=== PATIENT | female | born 1935 | race Caucasian/White ===

== ENCOUNTER 2017-08-15 12:46 | Inpatient (IN) | payer OTHER, MEDICARE ==
[~2017-08-15] VITALS: Ht 165.1 cm; Wt 44.9 kg
[~2017-08-15 12:46] MED LIST: AMARYL2 MG PO; AMARYL4 MG PO; AMOXICILLIN 50500 M1 PO; ANTIVERT25 MG PO; ASCRIPTIN 325325 MG PO; ASPIRIN325 PO; BENADRYL25 MG; BENADRYL25 MG PO; CELEXA 20 MG TA20 M1 PO; CHOLESTEROL; CIPROFLOXACIN500 M1; CLEOCIN HCL300 MG PO; GERITOL COMPLE1 EAC2; GERITOL COMPLE1 EAC2 PO; GERITOL TONIC118 ML; HCTZ PO; HYDROCHLOROTH12.5 M1; JANUMET XR 50-1 EAC1 PO; KLOR-CON 10 ER10 MEQ PO; KLOR-CON 1010 MEQ PO; KLOR-CON-EF 2525 ME1 PO; LEVAQUIN 500 M500 MG PO; LEVOTHROID50 MCG PO; LEVOTHYROXIN0.075 MG PO; LEVOXYL50 MCG PO; MECLIZINE 25 MG25 M1 PO; MECLIZINE HCL25 M1 PO; METFORMIN HCL500 MG PO; NEXIUM40 MG; NEXIUM40 MG PO; PRAVASTATIN SOD20 MG PO; PREMARIN0.625 MG PO; PROTONIX40 M2; SUGAR PILL; VITAMIN B-121000 MCG PO; VITAMIN D 5050000 I1 PO; VITAMIN D1000 UNI1 PO
[2017-08-15 12:48] VITALS: BP 165/97
[2017-08-15 13:22] LABS: ABSOLUTE NEUTROPHILS 12.9 thou/uL (1.4-8.2); BASOPHILS 0.6 % (0.0-2.0); EOSINOPHILS 0.7 % (0.0-3.0); HEMATOCRIT 38.4 % (37.0-47.0); HEMOGLOBIN 12.6 gm/dL (12.0-15.0); LYMPHOCYTES 6.9 % (24.0-44.0); MCH 28.3 pg (26.0-34.0); MCHC 32.8 g/dL (28.0-37.0); MCV 86.5 fL (80.0-100.0); MONOCYTES 7.6 % (1.0-8.0); PLATELET COUNT 313 thou/uL (150-400); POLYS 84.2 % (36.0-66.0); RBC 4.44 mil/uL (4.20-5.00); RDW 13.9 % (10.5-14.5); WBC 15.3 thou/uL (4.0-11.0)
[2017-08-15 13:30] LABS: CALCIUM 9.4 mg/dL (8.5-10.1); CREATININE 0.8 mg/dL (0.6-1.0); POTASSIUM 4.1 mmol/L (3.5-5.1)
[2017-08-15 13:41] LABS: URINE BILIRUBIN NEGATIVE (Negative); URINE BLOOD 3+ (Negative); URINE CLARITY CLEAR; URINE COLOR YELLOW; URINE GLUCOSE-RANDOM* 2+ (Negative); URINE KETONES 1+ (Negative); URINE LEUKOCYTES NEGATIVE (Negative); URINE NITRITE NEGATIVE (Negative); URINE PROTEIN (DIPSTICK) 1+ (Negative); URINE SPECIFIC GRAVITY 1.025 (1.005-1.035); URINE UROBILINOGEN 0.2 E.U./dl (0.2-1.0)
[2017-08-15 13:52] LABS: BACTERIA 1-9 Few /HPF (None Seen); CASTS None Seen /LPF (None Seen); CRYSTALS None Seen /LPF (None Seen); SQUAMOUS 4-10 Moderate /LPF (0-3); URINE WBC None Seen /HPF (0-5)
[2017-08-15 14:42] VITALS: BP 172/77
[2017-08-15 15:01] VITALS: BP 181/80
[2017-08-15 19:30] VITALS: BP 155/85
[2017-08-16 04:22] VITALS: BP 117/67
[2017-08-16 05:47] LABS: HEMOGLOBIN 11.7 gm/dL (12.0-15.0); MCH 27.8 pg (26.0-34.0); MCHC 31.6 g/dL (28.0-37.0); RBC 4.21 mil/uL (4.20-5.00); WBC 13.5 thou/uL (4.0-11.0)
[2017-08-16 06:00] LABS: ALBUMIN 2.9 g/dL (3.4-5.0); CREATININE 0.8 mg/dL (0.6-1.0); PHOSPHORUS 4.7 mg/dL (2.5-4.9); POTASSIUM 4.3 mmol/L (3.5-5.1)
[2017-08-16 08:31] VITALS: BP 134/76
[2017-08-16] MEDS ORDERED: HYDROCODONE-AP1 EAC6 PO (08:57)
[2017-08-16] MEDS ORDERED: CEFUROXIME500 MG PO (08:57)
[2017-08-16] MEDS ORDERED: PREDNISONE 20 M20 M1 PO (08:57)
[2017-08-16 12:33] VITALS: BP 134/76
[2017-12-06] MEDS ORDERED: GERITOL COMPLE1 EAC2 PO (10:06)
[2017-12-06] MEDS ORDERED: VITAMIN D250000 UNIT PO (10:06)
[2017-12-06] MEDS ORDERED: COD LIVER OIL1 EAC4 PO (10:07)
[2017-12-08] MEDS ORDERED: ASPIR 8181 MG PO (13:22)
[2017-12-08] MEDS ORDERED: CLOPIDOGREL75 MG PO (13:22)
[2017-12-08] MEDS ORDERED: ATORVASTATIN CA40 MG PO (13:22)
[2017-12-08] MEDS ORDERED: COZAAR 25 MG TA25 M1 PO (13:22)
[2018-03-03] MEDS ORDERED: BUSPIRONE HCL10 MG PO (19:05)
[2018-03-03] MEDS ORDERED: PROTONIX40 M1 PO (19:06)
[2018-03-03] MEDS ORDERED: COLCRYS0.6 MG PO (19:06)
[2018-03-06] MEDS ORDERED: OXYCODONE HCL 55 MG PO (09:11)
== END 2017-08-16 13:29 | disposition home or self-care (01) | DRG 871 ==
LOC: ER 12:46 → 4E 14:13 → EROBS 14:13 → 4E 15:02 → ENTRNSPT 08-16 13:07 → EDTRNSPTSTS 08-16 13:11 → 4E 08-16 13:29
PROVIDERS: Emergency Medicine; Hospitalist
DX: A41.9 Sepsis, unspecified organism (principal); E43 Unspecified severe protein-calorie malnutrition; N39.0 Urinary tract infection, site not specified; Z68.1 Body mass index [BMI] 19.9 or less, adult; M79.1 Myalgia; T50.905A Adverse effect of unspecified drugs, medicaments and biological substances, initial encounter; E11.65 Type 2 diabetes mellitus with hyperglycemia; M25.50 Pain in unspecified joint; Z90.710 Acquired absence of both cervix and uterus; Z86.12 Personal history of poliomyelitis; Z98.42 Cataract extraction status, left eye; Z98.41 Cataract extraction status, right eye; Z90.49 Acquired absence of other specified parts of digestive tract; Z79.899 Other long term (current) drug therapy; Z88.1 Allergy status to other antibiotic agents; Z88.2 Allergy status to sulfonamides; Z88.8 Allergy status to other drugs, medicaments and biological substances; Z88.0 Allergy status to penicillin; Z82.49 Family history of ischemic heart disease and other diseases of the circulatory system; Z83.3 Family history of diabetes mellitus; Z80.9 Family history of malignant neoplasm, unspecified; Z82.3 Family history of stroke; Y92.89 Other specified places as the place of occurrence of the external cause
CPT/HCPCS: 10183

== ENCOUNTER 2017-12-12 13:04 | Inpatient (IN) | payer OTHER, MEDICARE ==
[~2017-12-12] VITALS: Ht 162.6 cm; Wt 50.8 kg
--- NOTE | ~2017-12-12 | PATH ---
[facility] [address] [place] [address] PATHOLOGY RPT PROCEDURE Name: DORENE FOSTER Room #: 226-P ADM IN M.R.#: [id number] Admission: 12/12/17 Date of : 31 Discharge: Report #: [id number] Path Case #: [id number] Note LCA Accession Number: [id number] TESTS RESULT FLAG UNITS REF RANGE LAB Clinician Provided Cytology Information No. of containers..01 Other (Miscellaneous) Source: 01 RADIAL CARPAL LT WRT DIAGNOSIS: 02 RADIAL CARPAL LT WRT NEGATIVE FOR MALIGNANT CELLS. PROTEINACEOUS MATERIAL IS PRESENT. MARKED ACUTE INFLAMMATION. Signed out by: 02 Kina Gonzalez MD, Pathologist NPI- [id number] Performed by: Jeremiah Gustafson, Chain Builder ([facility]) Gross description: 01 0.5 ML, RED, CLEAR /LCS FLAG LEGEND: L-Low Normal,H-High Normal,LL-Alert Low,HH-Alert High <-Panic Low,>-Panic High,A-Abnormal,AA-Critical Abnormal Performed at: [address] [place] [address] Glenn Collins MD, [address] [address] Kina Gonzalez MD, Performed at: [address], [place], [place] [id number] MD Glenn Collins MD Phone: [phone]
--- NOTE | ~2017-12-12 | EKG ---
[address] [place] [address] ELECTROCARDIOGRAM REPORT Name: KRISTINDORENE Room #: 403-P ADM IN M.R.#: [id number] Admission: 12/12/17 Attend Phys: Varinder Stone MD Discharge: Date of : 33 Report #: [id number] THIS REPORT FOR: //name// [facility] ED Test Date: 2017-12-12 Test Time: 14:47:35 Pat Name: DORENE FOSTER Department: Room: Gender: F Pacs Specialist: CANDICE : 1935 Requested By: Guy Boateng Order Number: [id number] MD: Shawn Farias Measurements Intervals [place] Rate: 90 P: 56 [place]: 136 QRS: -27 QRSD: 85 T: 201 QT: 362 QTc: 443 Interpretive Statements Sinus rhythm LVH with secondary repolarization abnormality Compared to ECG 12/08/2017 07:23:40 Atrial premature complexes no longer present Electronically Signed On 12-13-2017 8:20:01 CDT by Shawn Farias [email or web address] <ELECTRONICALLY SIGNED> By: Shawn Farias MD, [facility] 12/13/17819 1447 1447 Shawn Farias MD, [facility] /EPI
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
--- NOTE | ~2017-12-12 | PATH ---
[facility] [address] [place] [address] PATHOLOGY RPT PROCEDURE Name: DORENE FOSTER Room #: 226-P ADM IN M.R.#: [id number] Admission: 12/12/17 Date of : 33 Discharge: Report #: [id number] Path Case #: [id number] Note LCA Accession Number: [id number] TESTS RESULT FLAG UNITS REF RANGE LAB Clinician Provided Cytology Information No. of containers..01 Other (Miscellaneous) Source: 01 LEFT ELBOW #3 DIAGNOSIS: 02 LEFT ELBOW #3 NEGATIVE FOR MALIGNANT CELLS. PROTEINACEOUS MATERIAL IS PRESENT. MARKED ACUTE INFLAMMATION PRESENT. Signed out by: Kina Gonzalez MD, Pathologist NPI- [id number] Performed by: Jeremiah Gustafson, Retail Experience Specialist ([facility]) Gross description: 01 5 ML, YELLOW-RED, CLOUDY /LCS FLAG LEGEND: L-Low Normal,H-High Normal,LL-Alert Low,HH-Alert High <-Panic Low,>-Panic High,A-Abnormal,AA-Critical Abnormal Performed at: [address] [place] [address] Glenn Collins MD, [address] [address] Kina Gonzalez MD, Performed at: [address], [place], [place] [address] MD Glenn Collins MD Phone: [phone]
--- NOTE | ~2017-12-12 | PATH ---
[facility] [address] [place] [address] PATHOLOGY RPT PROCEDURE Name: DORENE FOSTER Room #: 226-P ADM IN M.R.#: [id number] Admission: 12/12/17 Date of : 31 Discharge: Report #: [id number] Path Case #: [id number] Note LCA Accession Number: [id number] TESTS RESULT FLAG UNITS REF RANGE LAB Clinician Provided Cytology Information No. of containers..01 Other (Miscellaneous) Source: #2 MID CARPL LT WRST DIAGNOSIS: #2 MID CARPL LT WRST NEGATIVE FOR MALIGNANT CELLS. PROTEINACEOUS MATERIAL IS PRESENT. MARKED ACUTE INFLAMMATION. Signed out by: Kina Gonzalez MD, Pathologist NPI- [id number] Performed by: Jeremiah Gustafson, Dust Box Worker ([facility]) Gross description: 01 0.5 ML, RED, CLOUDY /LCS FLAG LEGEND: L-Low Normal,H-High Normal,LL-Alert Low,HH-Alert High <-Panic Low,>-Panic High,A-Abnormal,AA-Critical Abnormal Performed at: [address] [place] [address] Glenn Collins MD, [address] [address] Kina Gonzalez MD, Performed at: [address], [place], [place] [id number] MD Glenn Collins MD Phone: [phone]
[~2017-12-12 13:04] MED LIST changes: +ASPIR 8181 MG PO; +ATORVASTATIN CA40 MG PO; +CEFUROXIME500 MG PO; +CLOPIDOGREL75 MG PO; +COD LIVER OIL1 EAC4 PO; +COZAAR 25 MG TA25 M1 PO; +HYDROCODONE-AP1 EAC6 PO; +PREDNISONE 20 M20 M1 PO; +VITAMIN D250000 UNIT PO
[2017-12-12 13:05] VITALS: BP 149/75
[2017-12-12 14:17] LABS: HEMATOCRIT 34.7 % (37.0-47.0); HEMOGLOBIN 11.3 gm/dL (12.0-15.0); MCH 27.5 pg (26.0-34.0); MCHC 32.5 g/dL (28.0-37.0); MCV 84.9 fL (80.0-100.0); RBC 4.08 mil/uL (4.20-5.00); RDW 15.8 % (10.5-14.5); WBC 11.1 thou/uL (4.0-11.0)
[2017-12-12 14:25] LABS: CALCIUM 9.5 mg/dL (8.5-10.1); CREATININE 0.8 mg/dL (0.6-1.0); POTASSIUM 3.4 mmol/L (3.5-5.1)
[2017-12-12 14:33] LABS: ALBUMIN 2.8 g/dL (3.4-5.0); TOTAL BILIRUBIN 0.6 mg/dL (<0.1-1.0); TOTAL PROTEIN 7.3 g/dL (6.4-8.2); TROPONIN-I 0.55 ng/mL (<0.06); URIC ACID* 5.2 mg/dL (2.6-7.2)
[2017-12-12 16:00] VITALS: BP 152/61
[2017-12-12 16:02] LABS: URINE BILIRUBIN NEGATIVE (Negative); URINE BLOOD 1+ (Negative); URINE CLARITY SL CLOUDY; URINE COLOR YELLOW; URINE GLUCOSE-RANDOM* 3+ (Negative); URINE KETONES 1+ (Negative); URINE LEUKOCYTES-REFLEX NEGATIVE (Negative); URINE NITRITE-REFLEX POSITIVE (Negative); URINE PROTEIN (DIPSTICK) 2+ (Negative); URINE SPECIFIC GRAVITY 1.015 (1.005-1.035); URINE UROBILINOGEN 0.2 E.U./dl (0.2-1.0)
[2017-12-12 16:11] LABS: CASTS None Seen /LPF (None Seen); SQUAMOUS >10 Many /LPF (0-3); URINE RBC 3-10 Few /HPF (0-2); URINE WBC-REFLEX >25 Many /HPF (0-5)
[2017-12-12 16:12] LABS: AMORPHOUS URATES Many /LPF (None Seen); BACTERIA-REFLEX 1-9 Few /HPF (None Seen); YEAST-REFLEX Present (None Seen)
[2017-12-12 20:00] VITALS: BP 162/56
[2017-12-13 04:00] VITALS: BP 158/88
[2017-12-13 04:07] LABS: GLYCOHEMOGLOBIN (HGB A1C) 7.2 % (4.8-5.6)
[2017-12-13 07:15] VITALS: BP 180/83
[2017-12-13 15:20] VITALS: BP 173/62
[2017-12-13 20:25] VITALS: BP 150/71
[2017-12-14 00:48] VITALS: BP 136/67
[2017-12-14 04:44] VITALS: BP 155/65
[2017-12-14 07:56] VITALS: BP 167/76
[2017-12-14 16:11] VITALS: BP 141/45
[2017-12-14 20:00] VITALS: BP 126/57
[2017-12-15 04:00] VITALS: BP 128/62
[2017-12-15 04:48] LABS: ABSOLUTE NEUTROPHILS 11.7 thou/uL (1.4-8.2); BASOPHILS 0.2 % (0.0-2.0); EOSINOPHILS 0.1 % (0.0-3.0); HEMATOCRIT 29.6 % (37.0-47.0); HEMOGLOBIN 9.7 gm/dL (12.0-15.0); LYMPHOCYTES 4.5 % (24.0-44.0); MCH 27.3 pg (26.0-34.0); MCHC 32.8 g/dL (28.0-37.0); MONOCYTES 3.1 % (1.0-8.0); PLATELET COUNT 291 thou/uL (150-400); POLYS 92.1 % (36.0-66.0); RBC 3.57 mil/uL (4.20-5.00); RDW 15.3 % (10.5-14.5); WBC 12.7 thou/uL (4.0-11.0)
[2017-12-15 04:56] LABS: CREATININE 0.7 mg/dL (0.6-1.0)
[2017-12-15 07:05] VITALS: BP 126/51
[2017-12-15 16:05] VITALS: BP 129/51
[2017-12-15 20:23] VITALS: BP 131/52
[2017-12-16 04:37] VITALS: BP 137/65
[2017-12-16 05:08] LABS: BASOPHILS 0.1 % (0.0-2.0); HEMATOCRIT 29.8 % (37.0-47.0); HEMOGLOBIN 9.5 gm/dL (12.0-15.0); LYMPHOCYTES 6.5 % (24.0-44.0); MCH 26.8 pg (26.0-34.0); MCV 83.8 fL (80.0-100.0); MONOCYTES 5.3 % (1.0-8.0); POLYS 88.1 % (36.0-66.0); RBC 3.55 mil/uL (4.20-5.00); RDW 15.5 % (10.5-14.5); WBC 11.4 thou/uL (4.0-11.0)
[2017-12-16 05:16] LABS: PLATELET COUNT 408 thou/uL (150-400)
[2017-12-16 05:27] LABS: CALCIUM 9.1 mg/dL (8.5-10.1); CREATININE 0.9 mg/dL (0.6-1.0); POTASSIUM 3.4 mmol/L (3.5-5.1)
[2017-12-16 07:05] VITALS: BP 142/68
[2017-12-16 16:00] VITALS: BP 125/72
[2017-12-16 20:03] VITALS: BP 99/64
[2017-12-16 20:15] VITALS: BP 145/80
[2017-12-17 07:20] LABS: HEMATOCRIT 32.9 % (37.0-47.0); HEMOGLOBIN 10.9 gm/dL (12.0-15.0); MCH 27.4 pg (26.0-34.0); MCHC 33.1 g/dL (28.0-37.0); MCV 82.8 fL (80.0-100.0); RBC 3.98 mil/uL (4.20-5.00); RDW 15.5 % (10.5-14.5); WBC 10.4 thou/uL (4.0-11.0)
[2017-12-17 07:22] LABS: PLATELET COUNT 545 thou/uL (150-400)
[2017-12-17 07:35] LABS: CALCIUM 9.4 mg/dL (8.5-10.1); CREATININE 0.8 mg/dL (0.6-1.0); POTASSIUM 3.6 mmol/L (3.5-5.1)
[2017-12-17 08:20] LABS: ABSOLUTE NEUTROPHILS 7.1 thou/uL (1.4-8.2); ANISOCYTOSIS 1+; METAMYELOCYTES 1 %
[2017-12-17 08:44] VITALS: BP 163/92
[2017-12-17] MEDS ORDERED: CEPHALEXIN 250250 M1 PO (15:55)
[2017-12-17] MEDS ORDERED: MEDROL4 M1 PO (15:57)
[2017-12-17] MEDS ORDERED: TUMS PO (15:57)
[2017-12-17] MEDS ORDERED: PEPCID20 MG PO (15:57)
== END 2017-12-17 18:03 | DRG 553 ==
LOC: ER 13:04 → 4N 15:15 → EROBS 15:15 → 4N 16:18 → SICU 12-16 20:00
PROVIDERS: Hospitalist; Physician Assistant
PROC: 0R9M3ZX Drainage of Left Elbow Joint, Percutaneous Approach, Diagnostic (ICD-10-PCS; principal; 2017-12-13)
PROC: 0R9 Upper Joints, Drainage (ICD-10-PCS; principal; 2017-12-13)
PROC: 0R9P3ZX Drainage of Left Wrist Joint, Percutaneous Approach, Diagnostic (ICD-10-PCS; principal; 2017-12-13)
DX: M11.222 Other chondrocalcinosis, left elbow (principal); E43 Unspecified severe protein-calorie malnutrition; Z68.1 Body mass index [BMI] 19.9 or less, adult; M25.422 Effusion, left elbow; M13.0 Polyarthritis, unspecified; E11.9 Type 2 diabetes mellitus without complications; I25.10 Atherosclerotic heart disease of native coronary artery without angina pectoris; M25.432 Effusion, left wrist; M13.832 Other specified arthritis, left wrist; M25.562 Pain in left knee; I10 Essential (primary) hypertension; E78.00 Pure hypercholesterolemia, unspecified; E03.9 Hypothyroidism, unspecified; B96.4 Proteus (mirabilis) (morganii) as the cause of diseases classified elsewhere; E78.5 Hyperlipidemia, unspecified; M19.90 Unspecified osteoarthritis, unspecified site; F41.9 Anxiety disorder, unspecified; K22.2 Esophageal obstruction; M71.522 Other bursitis, not elsewhere classified, left elbow; N30.90 Cystitis, unspecified without hematuria; M10.9 Gout, unspecified; K21.9 Gastro-esophageal reflux disease without esophagitis; D64.9 Anemia, unspecified; K64.9 Unspecified hemorrhoids; Z85.6 Personal history of leukemia; Z90.710 Acquired absence of both cervix and uterus; Z90.49 Acquired absence of other specified parts of digestive tract; Z79.899 Other long term (current) drug therapy; Z79.82 Long term (current) use of aspirin; Z88.8 Allergy status to other drugs, medicaments and biological substances; Z88.2 Allergy status to sulfonamides; Z91.018 Allergy to other foods; I25.2 Old myocardial infarction; Z98.61 Coronary angioplasty status; Z82.49 Family history of ischemic heart disease and other diseases of the circulatory system; Z83.3 Family history of diabetes mellitus; Z82.3 Family history of stroke; Z80.8 Family history of malignant neoplasm of other organs or systems
CPT/HCPCS: 10790; 15001

== ENCOUNTER 2017-12-28 15:39 | Emergency (ER) | payer OTHER, MEDICARE ==
[~2017-12-28] VITALS: Ht 165.1 cm; Wt 47.6 kg
[~2017-12-28 15:39] MED LIST changes: +CEPHALEXIN 250250 M1 PO; +MEDROL4 M1 PO; +PEPCID20 MG PO; +TUMS PO
[2017-12-28 17:37] LABS: BASOPHILS 1.3 % (0.0-2.0); EOSINOPHILS 2.5 % (0.0-3.0); HEMATOCRIT 34.8 % (37.0-47.0); HEMOGLOBIN 11.4 gm/dL (12.0-15.0); LYMPHOCYTES 18.6 % (24.0-44.0); MCH 27.3 pg (26.0-34.0); MCHC 32.7 g/dL (28.0-37.0); MCV 83.6 fL (80.0-100.0); MONOCYTES 9.9 % (1.0-8.0); PLATELET COUNT 258 thou/uL (150-400); POLYS 67.7 % (36.0-66.0); RBC 4.16 mil/uL (4.20-5.00); RDW 15.7 % (10.5-14.5); WBC 8.9 thou/uL (4.0-11.0)
[2017-12-28 17:40] LABS: URINE BLOOD NEGATIVE (Negative); URINE CLARITY CLEAR; URINE COLOR YELLOW; URINE GLUCOSE-RANDOM* TRACE (Negative); URINE KETONES TRACE (Negative); URINE LEUKOCYTES-REFLEX NEGATIVE (Negative); URINE NITRITE-REFLEX NEGATIVE (Negative); URINE PROTEIN (DIPSTICK) 1+ (Negative); URINE SPECIFIC GRAVITY 1.025 (1.005-1.035); URINE UROBILINOGEN 0.2 E.U./dl (0.2-1.0)
[2017-12-28 17:42] LABS: ICTOTEST (BILI CONFIRMATORY) Negative (Negative); URINE BILIRUBIN NEGATIVE (Negative)
[2017-12-28 17:45] LABS: CALCIUM 8.7 mg/dL (8.5-10.1); CREATININE 0.6 mg/dL (0.6-1.0); POTASSIUM 3.6 mmol/L (3.5-5.1)
[2017-12-28 17:54] LABS: CASTS None Seen /LPF (None Seen); CRYSTALS None Seen /LPF (None Seen); SQUAMOUS 0-3 Few /LPF (0-3); URINE RBC None Seen /HPF (0-2); URINE WBC-REFLEX None Seen /HPF (0-5)
[2017-12-28] MEDS ORDERED: KEFLEX250 MG PO (18:16)
== END 2017-12-28 18:36 ==
LOC: ER 15:39
PROVIDERS: Emergency Medicine
DX: N39.0 Urinary tract infection, site not specified (principal); R31.9 Hematuria, unspecified; E11.9 Type 2 diabetes mellitus without complications; Z90.49 Acquired absence of other specified parts of digestive tract; Z90.710 Acquired absence of both cervix and uterus; Z88.1 Allergy status to other antibiotic agents; Z88.0 Allergy status to penicillin; Z88.2 Allergy status to sulfonamides

== ENCOUNTER 2018-01-01 17:03 | Inpatient (IN) | payer OTHER, MEDICARE ==
[~2018-01-01] VITALS: Ht 165.1 cm; Wt 45.1 kg
--- NOTE | ~2018-01-01 | EKG ---
[address] [place] [address] ELECTROCARDIOGRAM REPORT Name: DORENE FOSTER Room #: 205-P [facility] IN M.R.#: [id number] Admission: 01/01/18 Attend Phys: Villa Monson MD Discharge: Date of : 33 Report #: [id number] THIS REPORT FOR: //name// [facility] ED Test Date: 2018-01-01 Test Time: 18:17:25 Pat Name: DORENE FOSTER Department: Room: Gender: F Boiler Washer: CANDICE : 1935 Requested By: Tello Mabry Order Number: [id number] MD: Wilfrido Beck Measurements Intervals [place] Rate: 89 P: 54 [place]: 141 QRS: -22 QRSD: 78 T: 207 QT: 346 QTc: 421 Interpretive Statements Sinus rhythm Atrial premature complex LVH with secondary repolarization abnormality Anterior Q waves, possibly due to LVH Compared to ECG 12/12/2017 14:47:35 Atrial premature complex(es) now present Q waves now present Electronically Signed On 01-02-2018 7:59:14 CDT by Wilfrido Beck [email or web address] <ELECTRONICALLY SIGNED> By: Wilfrido Beck MD 01/02/18 0759 16 16 Wilfrido Beck MD /EPI
[~2018-01-01 17:03] MED LIST changes: +KEFLEX250 MG PO
[2018-01-01 17:07] VITALS: BP 162/71
[2018-01-01 19:35] LABS: BASOPHILS 1.1 % (0.0-2.0); EOSINOPHILS 3.2 % (0.0-3.0); HEMATOCRIT 33.3 % (37.0-47.0); HEMOGLOBIN 11.1 gm/dL (12.0-15.0); LYMPHOCYTES 19.8 % (24.0-44.0); MCH 27.5 pg (26.0-34.0); MCHC 33.2 g/dL (28.0-37.0); MCV 82.8 fL (80.0-100.0); MONOCYTES 10.5 % (1.0-8.0); PLATELET COUNT 187 thou/uL (150-400); POLYS 65.4 % (36.0-66.0); RBC 4.02 mil/uL (4.20-5.00); RDW 15.3 % (10.5-14.5); WBC 7.7 thou/uL (4.0-11.0)
[2018-01-01 19:46] LABS: CALCIUM 8.4 mg/dL (8.5-10.1); CREATININE 0.6 mg/dL (0.6-1.0); POTASSIUM 3.1 mmol/L (3.5-5.1)
[2018-01-01 19:55] LABS: ALBUMIN 2.7 g/dL (3.4-5.0); TOTAL BILIRUBIN 0.3 mg/dL (<0.1-1.0); TOTAL PROTEIN 6.2 g/dL (6.4-8.2); TROPONIN-I 0.09 ng/mL (<0.06)
[2018-01-01 22:41] VITALS: BP 159/73
[2018-01-02 03:14] LABS: HEMATOCRIT 31.2 % (37.0-47.0); HEMOGLOBIN 10.2 gm/dL (12.0-15.0); MCH 27.3 pg (26.0-34.0); MCHC 32.6 g/dL (28.0-37.0); MCV 83.6 fL (80.0-100.0); RBC 3.73 mil/uL (4.20-5.00); RDW 15.5 % (10.5-14.5); WBC 6.6 thou/uL (4.0-11.0)
[2018-01-02 03:25] LABS: CALCIUM 7.9 mg/dL (8.5-10.1); CREATININE 0.5 mg/dL (0.6-1.0); POTASSIUM 3.4 mmol/L (3.5-5.1)
[2018-01-02 04:13] LABS: URINE BLOOD NEGATIVE (Negative); URINE CLARITY CLEAR; URINE COLOR YELLOW; URINE GLUCOSE-RANDOM* TRACE (Negative); URINE KETONES 1+ (Negative); URINE NITRITE-REFLEX NEGATIVE (Negative); URINE PROTEIN (DIPSTICK) 1+ (Negative); URINE SPECIFIC GRAVITY 1.025 (1.005-1.035); URINE UROBILINOGEN 0.2 E.U./dl (0.2-1.0)
[2018-01-02 04:14] LABS: URINE LEUKOCYTES-REFLEX 1+ (Negative)
[2018-01-02 04:15] LABS: ICTOTEST (BILI CONFIRMATORY) Negative (Negative); URINE BILIRUBIN NEGATIVE (Negative)
[2018-01-02 04:33] LABS: SQUAMOUS >10 Many /LPF (0-3)
[2018-01-02 04:34] LABS: CASTS None Seen /LPF (None Seen); CRYSTALS None Seen /LPF (None Seen); MUCUS 0-3 Light strn/LPF (None Seen); URINE RBC 0-2 Rare /HPF (0-2); URINE WBC-REFLEX 6-15 Few /HPF (0-5)
[2018-01-02 04:35] LABS: BACTERIA-REFLEX 1-9 Few /HPF (None Seen)
[2018-01-02 04:40] VITALS: BP 154/65
[2018-01-02 08:14] VITALS: BP 145/73
[2018-01-02 12:00] VITALS: BP 159/74
[2018-01-02 16:00] VITALS: BP 143/60
[2018-01-02 19:55] VITALS: BP 145/63
[2018-01-03 02:53] LABS: CALCIUM 8.1 mg/dL (8.5-10.1); CREATININE 0.6 mg/dL (0.6-1.0)
[2018-01-03 03:49] VITALS: BP 145/61
[2018-01-03 07:45] VITALS: BP 144/63
[2018-01-03 11:52] VITALS: BP 160/82
[2018-01-03 15:37] VITALS: BP 157/66
[2018-01-03 18:58] LABS: MAGNESIUM 1.7 mg/dL (1.8-2.4); POTASSIUM 3.4 mmol/L (3.5-5.1)
[2018-01-03 20:30] VITALS: BP 157/88
[2018-01-04 03:27] LABS: ABSOLUTE NEUTROPHILS 5.7 thou/uL (1.4-8.2); BASOPHILS 0.2 % (0.0-2.0); HEMATOCRIT 33.1 % (37.0-47.0); HEMOGLOBIN 10.8 gm/dL (12.0-15.0); LYMPHOCYTES 8.1 % (24.0-44.0); MCH 27.1 pg (26.0-34.0); MCHC 32.6 g/dL (28.0-37.0); MCV 83.3 fL (80.0-100.0); MONOCYTES 2.7 % (1.0-8.0); PLATELET COUNT 171 thou/uL (150-400); RBC 3.97 mil/uL (4.20-5.00); RDW 16.1 % (10.5-14.5); WBC 6.5 thou/uL (4.0-11.0)
[2018-01-04 03:42] LABS: CALCIUM 8.4 mg/dL (8.5-10.1); CREATININE 0.6 mg/dL (0.6-1.0); MAGNESIUM 1.7 mg/dL (1.8-2.4); POTASSIUM 5.1 mmol/L (3.5-5.1)
[2018-01-04 04:45] VITALS: BP 119/69
[2018-01-04 07:37] VITALS: BP 143/67
[2018-01-04 11:40] VITALS: BP 134/67
[2018-01-04 14:50] VITALS: BP 134/67
[2018-01-04 16:05] VITALS: BP 136/67
[2018-01-04 20:45] VITALS: BP 142/74
[2018-01-05 04:02] LABS: CALCIUM 8.4 mg/dL (8.5-10.1); CREATININE 0.7 mg/dL (0.6-1.0); POTASSIUM 4.2 mmol/L (3.5-5.1)
[2018-01-05 04:30] VITALS: BP 140/88
[2018-01-05 08:22] VITALS: BP 138/54
[2018-01-05 12:34] VITALS: BP 164/75
== END 2018-01-05 13:18 | disposition home or self-care (01) | DRG 391 ==
LOC: ER 17:03 → 2N 21:21 → EROBS 21:21 → 2N 22:43
PROVIDERS: Emergency Medicine; Hospitalist; Internal Medicine; Nurse Practitioner Family
DX: K22.2 Esophageal obstruction (principal); E43 Unspecified severe protein-calorie malnutrition; N39.0 Urinary tract infection, site not specified; Z68.1 Body mass index [BMI] 19.9 or less, adult; E03.9 Hypothyroidism, unspecified; I25.10 Atherosclerotic heart disease of native coronary artery without angina pectoris; I10 Essential (primary) hypertension; E78.5 Hyperlipidemia, unspecified; Z66 Do not resuscitate; J44.9 Chronic obstructive pulmonary disease, unspecified; D64.9 Anemia, unspecified; E87.6 Hypokalemia; F41.9 Anxiety disorder, unspecified; M10.9 Gout, unspecified; M19.90 Unspecified osteoarthritis, unspecified site; E11.65 Type 2 diabetes mellitus with hyperglycemia; Z88.1 Allergy status to other antibiotic agents; Z88.0 Allergy status to penicillin; Z88.2 Allergy status to sulfonamides; Z90.710 Acquired absence of both cervix and uterus; Z90.49 Acquired absence of other specified parts of digestive tract; Z87.81 Personal history of (healed) traumatic fracture; Z88.8 Allergy status to other drugs, medicaments and biological substances; I25.2 Old myocardial infarction; Z95.5 Presence of coronary angioplasty implant and graft; Z86.73 Personal history of transient ischemic attack (TIA), and cerebral infarction without residual deficits; Z86.12 Personal history of poliomyelitis; Z82.49 Family history of ischemic heart disease and other diseases of the circulatory system; Z83.3 Family history of diabetes mellitus; Z82.3 Family history of stroke; Z79.82 Long term (current) use of aspirin; Z79.899 Other long term (current) drug therapy
CPT/HCPCS: 10081

== ENCOUNTER 2018-01-11 10:44 | Inpatient (IN) | payer OTHER, MEDICARE ==
[~2018-01-11] VITALS: Ht 165.1 cm; Wt 46.9 kg
--- NOTE | ~2018-01-11 | EKG ---
[place] [address] [facility] [place] [address] ELECTROCARDIOGRAM REPORT Name: KRISTINDORENEVANDANA SHARMAE Room #: 212-P ADM IN M.R.#: [id number] Admission: 01/11/18 Attend Phys: Villa Monson MD Discharge: Date of : 33 Report #: [id number] THIS REPORT FOR: //name// [facility] ED Test Date: 2018-01-11 Test Time: 10:48:37 Pat Name: DORENE FOSTER Department: Room: Gender: F Bus Escort: CANDICE : 1935 Requested By: Anderson Mercado Order Number: [id number] MD: Shawn Farias Measurements Intervals [place] Rate: 110 P: 57 MS: 156 QRS: -26 QRSD: 80 T: 160 QT: 332 QTc: 450 Interpretive Statements Sinus tachycardia LVH with secondary repolarization abnormality Compared to ECG 01/01/2018 18:17:25 Heart rate has increased Atrial premature complex(es) no longer present Electronically Signed On 01-14-2018 9:04:51 CDT by Shawn Farias [email or web address] <ELECTRONICALLY SIGNED> By: Shawn Farias MD, [facility] 01/14/18 0904 1048 1048 Shawn Farias MD, [facility] /EPI
[2018-01-11 10:47] VITALS: BP 81/60
[2018-01-11 11:14] LABS: HEMATOCRIT 38.5 % (37.0-47.0); HEMOGLOBIN 12.9 gm/dL (12.0-15.0); MCH 26.9 pg (26.0-34.0); MCHC 33.5 g/dL (28.0-37.0); MCV 80.4 fL (80.0-100.0); PLATELET COUNT 388 thou/uL (150-400); RBC 4.79 mil/uL (4.20-5.00); RDW 15.7 % (10.5-14.5); WBC 13.2 thou/uL (4.0-11.0)
[2018-01-11 11:23] LABS: CREATININE 1.1 mg/dL (0.6-1.0); POTASSIUM 3.1 mmol/L (3.5-5.1)
[2018-01-11 11:31] LABS: ALBUMIN 3.4 g/dL (3.4-5.0); TOTAL BILIRUBIN 0.4 mg/dL (<0.1-1.0); TOTAL PROTEIN 7.2 g/dL (6.4-8.2); TROPONIN-I 0.09 ng/mL (<0.06)
[2018-01-11 12:13] LABS: ABSOLUTE NEUTROPHILS 8.4 thou/uL (1.4-8.2); MYELOCYTES 1 %
[2018-01-11 12:14] LABS: ANISOCYTOSIS 1+
[2018-01-11 14:38] VITALS: BP 95/62
[2018-01-11 15:07] VITALS: BP 140/60
[2018-01-11 19:37] VITALS: BP 117/44
[2018-01-12 03:16] LABS: HEMATOCRIT 32.6 % (37.0-47.0); HEMOGLOBIN 11.1 gm/dL (12.0-15.0); MCHC 33.9 g/dL (28.0-37.0); MCV 79.6 fL (80.0-100.0); RBC 4.1 mil/uL (4.20-5.00); RDW 15.4 % (10.5-14.5); WBC 7.1 thou/uL (4.0-11.0)
[2018-01-12 03:25] LABS: CREATININE 0.8 mg/dL (0.6-1.0); POTASSIUM 3.5 mmol/L (3.5-5.1)
[2018-01-12 03:58] VITALS: BP 108/34
[2018-01-12 07:55] VITALS: BP 112/61
[2018-01-12 11:43] VITALS: BP 120/68
[2018-01-12 16:10] VITALS: BP 119/65
[2018-01-12 19:13] VITALS: BP 135/68
[2018-01-13 03:30] VITALS: BP 118/52
[2018-01-13 07:35] VITALS: BP 139/73
[2018-01-13 12:01] VITALS: BP 146/77
[2018-01-13 15:39] VITALS: BP 159/79
[2018-01-13 19:11] VITALS: BP 124/78
[2018-01-14 04:04] LABS: HEMATOCRIT 28.2 % (37.0-47.0); HEMOGLOBIN 9.8 gm/dL (12.0-15.0); MCH 27.7 pg (26.0-34.0); MCHC 34.7 g/dL (28.0-37.0); MCV 79.7 fL (80.0-100.0); PLATELET COUNT 217 thou/uL (150-400); RBC 3.53 mil/uL (4.20-5.00); RDW 15.8 % (10.5-14.5); WBC 6.2 thou/uL (4.0-11.0)
[2018-01-14 04:06] LABS: ALBUMIN 2.2 g/dL (3.4-5.0); CALCIUM 6.9 mg/dL (8.5-10.1); CREATININE 0.6 mg/dL (0.6-1.0); TOTAL BILIRUBIN 0.2 mg/dL (<0.1-1.0); TOTAL PROTEIN 4.9 g/dL (6.4-8.2)
[2018-01-14 04:30] VITALS: BP 138/63
[2018-01-14 05:00] LABS: POTASSIUM 2.7 mmol/L (3.5-5.1)
[2018-01-14 07:39] VITALS: BP 142/73
[2018-01-14 09:00] LABS: ABSOLUTE NEUTROPHILS 4.1 thou/uL (1.4-8.2); PLATELET ESTIMATE NORMAL
[2018-01-14 11:36] VITALS: BP 145/71
[2018-01-14 12:24] LABS: POTASSIUM 3.1 mmol/L (3.5-5.1)
[2018-01-14 15:35] VITALS: BP 158/78
[2018-01-14 19:19] LABS: MAGNESIUM 1.4 mg/dL (1.8-2.4); POTASSIUM 3.6 mmol/L (3.5-5.1)
[2018-01-14 20:15] VITALS: BP 144/58
[2018-01-15 03:01] LABS: CALCIUM 6.9 mg/dL (8.5-10.1); CREATININE 0.6 mg/dL (0.6-1.0); MAGNESIUM 1.4 mg/dL (1.8-2.4); POTASSIUM 3.5 mmol/L (3.5-5.1)
[2018-01-15 04:06] VITALS: BP 144/64
[2018-01-15 08:33] VITALS: BP 174/102
[2018-01-15 11:00] VITALS: BP 130/72
[2018-01-15 15:34] VITALS: BP 137/75
[2018-01-15 20:05] VITALS: BP 137/80
[2018-01-16 04:07] LABS: ABSOLUTE NEUTROPHILS 4.5 thou/uL (1.4-8.2); BASOPHILS 0.5 % (0.0-2.0); EOSINOPHILS 1.3 % (0.0-3.0); HEMATOCRIT 27.3 % (37.0-47.0); HEMOGLOBIN 9.4 gm/dL (12.0-15.0); LYMPHOCYTES 19.3 % (24.0-44.0); MCH 27.2 pg (26.0-34.0); MCHC 34.2 g/dL (28.0-37.0); MCV 79.4 fL (80.0-100.0); MONOCYTES 10.5 % (1.0-8.0); PLATELET COUNT 215 thou/uL (150-400); POLYS 68.4 % (36.0-66.0); RBC 3.44 mil/uL (4.20-5.00); RDW 15.4 % (10.5-14.5); WBC 6.5 thou/uL (4.0-11.0)
[2018-01-16 04:45] VITALS: BP 121/60
[2018-01-16 08:14] VITALS: BP 139/73
[2018-01-16 10:44] LABS: % SATURATION 9 % (20-39); IRON 21 ug/dL (50-170); TIBC 231 ug/dL (250-450)
[2018-01-16 11:44] VITALS: BP 140/91
[2018-01-16 16:58] VITALS: BP 142/76
[2018-01-16 19:55] VITALS: BP 144/68
[2018-01-17 03:15] LABS: ABSOLUTE NEUTROPHILS 5.2 thou/uL (1.4-8.2); BASOPHILS 0.8 % (0.0-2.0); EOSINOPHILS 1.2 % (0.0-3.0); HEMATOCRIT 27.7 % (37.0-47.0); HEMOGLOBIN 9.6 gm/dL (12.0-15.0); MCH 27.5 pg (26.0-34.0); MCHC 34.7 g/dL (28.0-37.0); MCV 79.2 fL (80.0-100.0); PLATELET COUNT 229 thou/uL (150-400); RDW 15.6 % (10.5-14.5); WBC 7.8 thou/uL (4.0-11.0)
[2018-01-17 03:24] LABS: CALCIUM 7.6 mg/dL (8.5-10.1); CREATININE 0.5 mg/dL (0.6-1.0); MAGNESIUM 1.6 mg/dL (1.8-2.4); PHOSPHORUS 2.1 mg/dL (2.5-4.9); POTASSIUM 3.4 mmol/L (3.5-5.1)
[2018-01-17 04:50] VITALS: BP 128/73
[2018-01-17 07:15] VITALS: BP 148/73
[2018-01-17 11:20] VITALS: BP 143/60
[2018-01-17] MEDS ORDERED: ENOXAPARIN30 MG/0.1 SUBQ (13:41)
[2018-01-17] MEDS ORDERED: LEVAQUIN 500 M500 M2 PO (13:41)
[2018-01-17] MEDS ORDERED: IRON325 PO (13:41)
[2018-01-17] MEDS ORDERED: XANAX 0.25 MG0.25 MG PO (13:41)
[2018-01-17] MEDS ORDERED: PROBIOTIC1 EAC1 PO (13:41)
[2018-01-17] MEDS ORDERED: ZOLOFT50 MG PO (13:41)
[2018-01-17 15:10] VITALS: BP 140/60
== END 2018-01-17 16:55 | DRG 871 ==
LOC: ER 10:44 → EROBS 12:05 → 2N 12:05
PROVIDERS: Emergency Medicine; Hospitalist; Internal Medicine; Nurse Practitioner Acute Care; Nurse Practitioner Family
DX: A41.9 Sepsis, unspecified organism (principal); J18.9 Pneumonia, unspecified organism; E43 Unspecified severe protein-calorie malnutrition; Z68.1 Body mass index [BMI] 19.9 or less, adult; E11.9 Type 2 diabetes mellitus without complications; M19.90 Unspecified osteoarthritis, unspecified site; E78.5 Hyperlipidemia, unspecified; E03.9 Hypothyroidism, unspecified; I25.10 Atherosclerotic heart disease of native coronary artery without angina pectoris; I95.9 Hypotension, unspecified; E05.90 Thyrotoxicosis, unspecified without thyrotoxic crisis or storm; E87.6 Hypokalemia; E83.42 Hypomagnesemia; R13.10 Dysphagia, unspecified; F32.9 Major depressive disorder, single episode, unspecified; M11.20 Other chondrocalcinosis, unspecified site; D64.9 Anemia, unspecified; Z86.73 Personal history of transient ischemic attack (TIA), and cerebral infarction without residual deficits; Z90.710 Acquired absence of both cervix and uterus; Z90.49 Acquired absence of other specified parts of digestive tract; Z88.1 Allergy status to other antibiotic agents; Z88.0 Allergy status to penicillin; Z88.2 Allergy status to sulfonamides; Z88.8 Allergy status to other drugs, medicaments and biological substances; I25.2 Old myocardial infarction; Z86.12 Personal history of poliomyelitis; Z82.49 Family history of ischemic heart disease and other diseases of the circulatory system; Z83.3 Family history of diabetes mellitus; Z82.3 Family history of stroke; Z79.82 Long term (current) use of aspirin; Z79.899 Other long term (current) drug therapy
CPT/HCPCS: 10081

== ENCOUNTER 2018-04-14 11:10 | Inpatient (IN) | payer OTHER, MEDICARE ==
[~2018-04-14] VITALS: Ht 165.1 cm; Wt 40.8 kg
--- NOTE | ~2018-04-14 | PATH ---
[facility] [address] [place] [address] PATHOLOGY RPT PROCEDURE Name: TERRA FOSTERVANDANA ARAMBULA Room #: 222-P DIS IN M.R.#: [id number] Admission: 04/14/18 Date of : 33 Discharge: 04/20/18 Report #: [id number] Path Case #: [id number] LCA Accession Number: [id number] . 01 Material submitted: . BX ESOPHAGEAL STRICTURE R/O MALIGNANCY . 01 Clinician provided ICD-10: R11.10 K22.2 . 01 Clinical history: . Pre-OP DX: GERD, dysphagia Post-OP DX: Esophageal stricture . 02 Diagnosis: Gastroesophageal mucosa, esophageal stricture R/O malignancy, endoscopic biopsy: - Extensive ulceration as well as marked acute inflammation including fibrinopurulent exudate material, as well as reactive changes. - Gastric cardia-type mucosa with moderate chronic inflammation; negative for dysplasia. - Squamous mucosa showing reactive changes. (IUV:jennifer;04/22/2018) QMS/04/22/2018 . 02 Comment: A GMS fungal special stain is performed and shows no definite fungal elements identified. AE1/AE3 immunohistochemical stain is performed on block A1 and it shows no signet-ring cells within the fibrinopurulent material. Extensive ulceration associated with marked acute inflammation is identified in two of the four fragments sampled with no epithelial elements within these fragments. (IUV:jennifer; 04/22/2018) . 02 Electronically signed: . Kina Gonzalez MD, Pathologist NPI- [id number] . 01 Gross description: . Received in formalin labeled "Laurel Foster, BX esophageal, stricture," are 4 segments of rawls soft tissue measuring 1.3 x 0.6 x 0.2 cm in aggregate dimensions and ranging from 0.2 to 0.4 cm in maximum dimension. The specimen is submitted entirely in cassette A1. (TSD; 04/19/2018) TOB/TOB . 02 [place] [address] PATHOLOGY RPT PROCEDURE Name: LAUREL FOSTER ARAMBULA Room #: 222-P DIS IN M.R.#: [id number] Admission: 04/14/18 Date of : 33 Discharge: 04/20/18 Report #: [id number] Path Case #: [id number] Pathologist provided ICD-10: K20.9, K22.10, K29.50 . 02 CPT . 984040 Specimen Comment: A courtesy copy of this report has been sent to Specimen Comment: [phone], , . Specimen Comment: Report sent to , DR KENNEY / DR CALLES Specimen Comment: A duplicate report has been generated due to demographic updates. Performed at: [address], [place], [place] [address] MD Glenn Collins MD Phone: [phone] Performed at: [address] [facility] [address] [id number] MD Kina Gonzalez MD Phone: [phone]
--- NOTE | ~2018-04-14 | EKG ---
[address] [address] ELECTROCARDIOGRAM REPORT Name: TERRA FOSTERVANDANA SHARMAE Room #: 170-6 ADM IN M.R.#: [id number] Admission: 04/14/18 Attend Phys: Jose Amin Discharge: Date of : 33 Report #: [id number] THIS REPORT FOR: //name// [facility] ED Test Date: 2018-04-14 Test Time: 11:32:12 Pat Name: DORENE FOSTER Department: Room: 170 Gender: F Supervisor Photostat: gualberto : 1935 Requested By: Rosa Talbot Order Number: [id number] MD: Wilfrido Beck Measurements Intervals [place] Rate: 105 P: 76 [place]: 173 QRS: -22 QRSD: 80 T: 144 QT: 313 QTc: 414 Interpretive Statements Sinus tachycardia Atrial premature complex LVH with secondary repolarization abnormality Anterior Q waves, possibly due to LVH Compared to ECG 01/11/2018 10:48:37 Atrial premature complex(es) now present Q waves now present Electronically Signed On 04-14-2018 13:33:15 CDT by Wilfrido Beck [email or web address] <ELECTRONICALLY SIGNED> By: Wilfrido Beck MD 04/14/18 1333 1132 1132 Wilfrido Beck MD /EPI
[~2018-04-14 11:10] MED LIST changes: +BUSPIRONE HCL10 MG PO; +COLCRYS0.6 MG PO; +ENOXAPARIN30 MG/0.1 SUBQ; +IRON325 PO; +LEVAQUIN 500 M500 M2 PO; +OXYCODONE HCL 55 MG PO; +PROBIOTIC1 EAC1 PO; +PROTONIX40 M1 PO; +XANAX 0.25 MG0.25 MG PO; +ZOLOFT50 MG PO
[2018-04-14 11:15] VITALS: BP 161/94
[2018-04-14 11:56] LABS: ABSOLUTE NEUTROPHILS 5.9 thou/uL (1.4-8.2); BASOPHILS 0.6 % (0.0-2.0); EOSINOPHILS 2.1 % (0.0-3.0); HEMATOCRIT 41.8 % (37.0-47.0); HEMOGLOBIN 13.8 gm/dL (12.0-15.0); LYMPHOCYTES 25.8 % (24.0-44.0); MCH 27.2 pg (26.0-34.0); MCV 82.3 fL (80.0-100.0); MONOCYTES 7.9 % (1.0-8.0); PLATELET COUNT 267 thou/uL (150-400); POLYS 63.6 % (36.0-66.0); RBC 5.08 mil/uL (4.20-5.00); RDW 16.1 % (10.5-14.5); WBC 9.3 thou/uL (4.0-11.0)
[2018-04-14 12:04] LABS: CALCIUM 10.1 mg/dL (8.5-10.1); CREATININE 0.8 mg/dL (0.6-1.0)
[2018-04-14 12:13] LABS: ALBUMIN 3.8 g/dL (3.4-5.0); TOTAL BILIRUBIN 0.3 mg/dL (<0.1-1.0); TOTAL PROTEIN 7.7 g/dL (6.4-8.2); TROPONIN-I 0.11 ng/mL (<0.06)
[2018-04-14] MEDS ORDERED: ACIDOPHILUS1 EAC4 PO ×2 (12:20)
[2018-04-14] MEDS ORDERED: VITAMIN C500 M2 PO (12:21)
[2018-04-14] MEDS ORDERED: KLOR-CON 1010 MEQ PO (12:24)
[2018-04-14 12:27] VITALS: BP 161/94
[2018-04-14 14:02] VITALS: BP 154/58
[2018-04-14 14:05] VITALS: BP 155/62
[2018-04-14 19:51] VITALS: BP 152/74
[2018-04-15 08:00] VITALS: BP 149/60
[2018-04-15 21:10] VITALS: BP 143/76
[2018-04-16 08:05] VITALS: BP 128/63
[2018-04-16 19:31] VITALS: BP 123/55
[2018-04-17 08:28] VITALS: BP 128/61
[2018-04-17 19:02] VITALS: BP 143/73
[2018-04-18 08:07] VITALS: BP 144/70
[2018-04-18 20:53] VITALS: BP 130/49
[2018-04-19 07:30] VITALS: BP 116/65
[2018-04-19 19:44] VITALS: BP 121/63
[2018-04-20 08:18] LABS: ABSOLUTE NEUTROPHILS 2.5 thou/uL (1.4-8.2); BASOPHILS 1.1 % (0.0-2.0); EOSINOPHILS 5.6 % (0.0-3.0); HEMATOCRIT 34.1 % (37.0-47.0); HEMOGLOBIN 11.1 gm/dL (12.0-15.0); LYMPHOCYTES 29.6 % (24.0-44.0); MCH 26.8 pg (26.0-34.0); MCHC 32.6 g/dL (28.0-37.0); MCV 82.3 fL (80.0-100.0); MONOCYTES 11.7 % (1.0-8.0); PLATELET COUNT 175 thou/uL (150-400); RBC 4.15 mil/uL (4.20-5.00); RDW 15.9 % (10.5-14.5); WBC 4.9 thou/uL (4.0-11.0)
[2018-04-20 08:30] LABS: CALCIUM 9.5 mg/dL (8.5-10.1); CREATININE 0.7 mg/dL (0.6-1.0); MAGNESIUM 1.8 mg/dL (1.8-2.4); POTASSIUM 4.6 mmol/L (3.5-5.1)
[2018-04-20 09:44] VITALS: BP 121/63
== END 2018-04-20 11:00 | disposition home or self-care (01) | DRG 391 ==
LOC: ER 11:10 → SICU 12:32 → EROBS 12:32 → 4W 12:32 → SICU 04-15 17:14
PROVIDERS: Nurse Practitioner Family; Student in an Organized Health Care Education/Training Program
PROC: 0D758ZZ Dilation of Esophagus, Via Natural or Artificial Opening Endoscopic (ICD-10-PCS; principal; 2018-04-19)
PROC: 0DB58ZX Excision of Esophagus, Via Natural or Artificial Opening Endoscopic, Diagnostic (ICD-10-PCS; principal; 2018-04-19)
DX: K29.70 Gastritis, unspecified, without bleeding (principal); E43 Unspecified severe protein-calorie malnutrition; Z68.1 Body mass index [BMI] 19.9 or less, adult; R13.10 Dysphagia, unspecified; K20.9 Esophagitis, unspecified; K22.2 Esophageal obstruction; E11.9 Type 2 diabetes mellitus without complications; J44.9 Chronic obstructive pulmonary disease, unspecified; M19.90 Unspecified osteoarthritis, unspecified site; E78.5 Hyperlipidemia, unspecified; E03.9 Hypothyroidism, unspecified; I25.10 Atherosclerotic heart disease of native coronary artery without angina pectoris; K21.9 Gastro-esophageal reflux disease without esophagitis; M62.84 Sarcopenia; M11.20 Other chondrocalcinosis, unspecified site; E53.8 Deficiency of other specified B group vitamins; Z86.73 Personal history of transient ischemic attack (TIA), and cerebral infarction without residual deficits; Z90.710 Acquired absence of both cervix and uterus; Z90.49 Acquired absence of other specified parts of digestive tract; Z95.5 Presence of coronary angioplasty implant and graft; I25.2 Old myocardial infarction; Z88.0 Allergy status to penicillin; Z88.2 Allergy status to sulfonamides; Z88.8 Allergy status to other drugs, medicaments and biological substances; Z88.1 Allergy status to other antibiotic agents; Z91.02 Food additives allergy status; Z82.49 Family history of ischemic heart disease and other diseases of the circulatory system; Z83.3 Family history of diabetes mellitus; Z79.899 Other long term (current) drug therapy; Z80.0 Family history of malignant neoplasm of digestive organs; Z98.890 Other specified postprocedural states
CPT/HCPCS: 10045; 15002; 62110; 62900

== ENCOUNTER 2018-07-08 03:52 | Emergency (ER) | payer OTHER, MEDICARE ==
[~2018-07-08] VITALS: Ht 165.1 cm; Wt 44.5 kg
--- NOTE | ~2018-07-08 | EKG ---
[address] [place] [address] ELECTROCARDIOGRAM REPORT Name: DORENE FOSTER [facility] [id number] Admission: 07/08/18 Attend Phys: Discharge: 07/08/18 Date of : 33 Report #: [id number] THIS REPORT FOR: //name// [facility] ED Test Date: 2018-07-08 Test Time: 04:02:35 Pat Name: DORENE FOSTER Department: Room: Gender: F Roads Supervisor: JULIA : 1935 Requested By: Amadou Bal Order Number: [id number] MD: Wilfrido Beck Measurements Intervals [place] Rate: 92 P: 75 [place]: 139 QRS: -16 QRSD: 80 T: 151 QT: 356 QTc: 441 Interpretive Statements Sinus rhythm LVH with secondary repolarization abnormality Compared to ECG 04/14/2018 11:32:12 Sinus tachycardia no longer present Atrial premature complex(es) no longer present Electronically Signed On 07-08-2018 11:20:22 TRUSS PULLER HELPER by Wilfrido Beck [email or web address] <ELECTRONICALLY SIGNED> By: Wilfrido Beck MD 07/08/18 1120 040 040 Wilfrido Beck MD /KASEY
[~2018-07-08 03:52] MED LIST changes: +ACIDOPHILUS1 EAC4 PO; +VITAMIN C500 M2 PO
[2018-07-08] MEDS ORDERED: JARDIANCE10 MG PO (04:11)
[2018-07-08] MEDS ORDERED: CLIMARA0.0375 MG TOP (04:11)
[2018-07-08] MEDS ORDERED: VITAMIN D3400 UNIT PO (04:13)
[2018-07-08 04:17] LABS: ABSOLUTE NEUTROPHILS 5.5 thou/uL (1.4-8.2); BASOPHILS 1.1 % (0.0-2.0); EOSINOPHILS 3.6 % (0.0-3.0); HEMATOCRIT 45.2 % (37.0-47.0); HEMOGLOBIN 14.8 gm/dL (12.0-15.0); LYMPHOCYTES 26.1 % (24.0-44.0); MCH 27.6 pg (26.0-34.0); MCHC 32.7 g/dL (28.0-37.0); MCV 84.4 fL (80.0-100.0); MONOCYTES 8.6 % (1.0-8.0); PLATELET COUNT 240 thou/uL (150-400); POLYS 60.6 % (36.0-66.0); RBC 5.36 mil/uL (4.20-5.00); RDW 16.1 % (10.5-14.5); WBC 9.1 thou/uL (4.0-11.0)
[2018-07-08 04:20] LABS: CALCIUM 9.9 mg/dL (8.5-10.1); CREATININE 0.9 mg/dL (0.6-1.0); POTASSIUM 4.4 mmol/L (3.5-5.1)
[2018-07-08 04:24] LABS: URINE BILIRUBIN NEGATIVE (Negative); URINE BLOOD NEGATIVE (Negative); URINE CLARITY CLEAR; URINE COLOR YELLOW; URINE GLUCOSE-RANDOM* 3+ (Negative); URINE KETONES NEGATIVE (Negative); URINE LEUKOCYTES-REFLEX NEGATIVE (Negative); URINE NITRITE-REFLEX NEGATIVE (Negative); URINE PROTEIN (DIPSTICK) NEGATIVE (Negative); URINE UROBILINOGEN 0.2 E.U./dl (0.2-1.0)
[2018-07-08 04:28] LABS: ALBUMIN 4.2 g/dL (3.4-5.0); MAGNESIUM 2.1 mg/dL (1.8-2.4); TOTAL BILIRUBIN 0.5 mg/dL (<0.1-1.0); TOTAL PROTEIN 8.1 g/dL (6.4-8.2); TROPONIN-I 0.08 ng/mL (<0.06)
[2018-07-08] MEDS ORDERED: ANTIVERT25 MG PO (04:59)
[2018-07-08 06:33] VITALS: BP 169/61
== END 2018-07-08 06:33 | disposition home or self-care (01) ==
LOC: ER 03:52
PROVIDERS: Emergency Medicine
DX: R42 Dizziness and giddiness (principal); H93.19 Tinnitus, unspecified ear; E11.9 Type 2 diabetes mellitus without complications; J44.9 Chronic obstructive pulmonary disease, unspecified; Z90.49 Acquired absence of other specified parts of digestive tract; Z90.710 Acquired absence of both cervix and uterus; E78.5 Hyperlipidemia, unspecified; E03.9 Hypothyroidism, unspecified; I25.10 Atherosclerotic heart disease of native coronary artery without angina pectoris; Z95.5 Presence of coronary angioplasty implant and graft; Z88.0 Allergy status to penicillin; Z88.1 Allergy status to other antibiotic agents; Z88.2 Allergy status to sulfonamides; Z88.6 Allergy status to analgesic agent; Z88.8 Allergy status to other drugs, medicaments and biological substances

== ENCOUNTER 2018-09-22 18:16 | Inpatient (IN) | payer OTHER, MEDICARE ==
[~2018-09-22] VITALS: Ht 165.1 cm; Wt 45.9 kg
--- NOTE | ~2018-09-22 | HC ---
[facility] [place] [place] [address] CONSULTATION Name: DORENE FOSTER Room #: 212-P [facility] MJunior#: [id number] Admission: 09/22/18 ������������������ Attend Phys: Jimenez Olivier MD Discharge: ������������������ Date of : 33 Report #: [id number] THIS REPORT FOR: //name// CC: Jimenez Clay REASON FOR CONSULTATION: Coronary artery disease. HISTORY OF PRESENT ILLNESS: The patient is an 83-year-old woman with coronary artery disease with prior stenting in 11/2017 of the first marginal branch (2.5 x 14 mm Resolute stent), proximal right coronary (4.0 x 18 mm Resolute stent), and mid posterolateral branch (3.0 x 15 mm Resolute stent). She has a history of normal left ventricular systolic function, dyslipidemia and esophageal stricture. Following her original stenting procedure, she had several hospitalizations, one with pneumonia, the other with esophageal stricture requiring dilatation. She now presents with pain at the top of her head and dizziness. It was created a considerable amount of anxiety and was also associated with a rapid and regular heartbeat. She denies vertiginous type symptoms. Over several hours, her headache resolved. The palpitations were brief in duration. She denies chest heaviness, pressure or arm pain, reminiscent to what she experienced prior to her stenting procedure. She has felt well from the standpoint of any angina or anginal type symptoms. She does report progressive dysphagia. She has trouble swallowing food and pills. She has a call into Dr. Garcia to discuss this. Her Plavix has been on hold in anticipation of esophageal dilatation. Troponin levels were ordered on presentation, which have been minimally elevated. Interestingly, dating back to 2014, troponin levels have never been normal and usually in a minimally elevated nondiagnostic range. MEDICATIONS: Include aspirin 81 mg daily, atorvastatin 40 mg daily, BuSpar 5 mg twice daily, colchicine, Jardiance 25 mg daily, estrogen patch, levothyroxine 75 mcg daily, losartan 25 mg daily and Protonix. ALLERGIES: SHE HAS MULTIPLE ALLERGIES, which have been reviewed and are outlined in her medical record. PAST MEDICAL HISTORY: Medical records have been reviewed and include a history of hypertension, reflux disease, esophageal stricture, coronary artery disease as detailed above, gout. SOCIAL HISTORY: She has never been a smoker, lives independently. FAMILY HISTORY: Unremarkable for premature coronary artery disease. REVIEW OF SYSTEMS: All systems negative except as that noted above. [address] [address] CONSULTATION Name: DORENE FOSTER Room #: 212-P [facility] Sihrin#: [id number] Admission: 09/22/18 ������������������ Attend Phys: Jimenez Olivier MD Discharge: ������������������ Date of : 33 Report #: [id number] PHYSICAL EXAMINATION: GENERAL: A pleasant elderly woman in no distress. VITAL SIGNS: Blood pressure is 129/58, heart rate of 82 and regular. She is afebrile. HEENT: There are neither xanthelasma, subcutaneous xanthomata, oral mucosal or digital cyanosis or kyphoscoliosis present. CHEST: Clear to auscultation and percussion. CARDIAC: Regular rate and rhythm with a normal S1, S2. Soft systolic murmur at the left sternal border. ABDOMEN: Soft and nontender. EXTREMITIES: Without cyanosis, clubbing or edema. Radial pulses are 2+. NEUROLOGIC: She is alert with a nonfocal exam. LABORATORY DATA: Sodium is 133, potassium 4.8, creatinine 1.0. Troponin 0.08. White count 10.2, hemoglobin 14, hematocrit 45, platelet count 201. Chest x-ray is stable. Head CT is normal. EKG sinus rhythm with repolarization abnormality. IMPRESSION: 1. Headache and dizziness. 2. Coronary artery disease, clinically stable. Tiny nondiagnostic troponin elevation. 3. Hypertension. 4. Esophageal stricture with dysphagia. 5. Diabetes. 6. Dyslipidemia. RECOMMENDATIONS: 1. Continued aggressive medical therapy for coronary artery disease. 2. GI evaluation. 3. Outpatient event recorder and evaluation of palpitations. I have discussed these issues with the patient and her daughter. Thank you for asking me to participate in her care. ��������������������������������������������� ���������������������������������������� By: ��������������������������������������������� 0756 40 Shawn Farias MD, [facility] /nt
[~2018-09-22 18:16] MED LIST changes: +CLIMARA0.0375 MG TOP; +JARDIANCE10 MG PO; +VITAMIN D3400 UNIT PO
[2018-09-22 18:19] VITALS: BP 142/69
[2018-09-22] MEDS ORDERED: KLOR-CON M2020 MEQ PO (19:06)
[2018-09-22] MEDS ORDERED: TRAMADOL 50 MG50 MG PO (19:06)
[2018-09-22 19:23] LABS: ABSOLUTE NEUTROPHILS 6.3 thou/uL (1.4-8.2); BASOPHILS 0.8 % (0.0-2.0); EOSINOPHILS 2.3 % (0.0-3.0); HEMATOCRIT 45.4 % (37.0-47.0); HEMOGLOBIN 14.9 gm/dL (12.0-15.0); LYMPHOCYTES 25.8 % (24.0-44.0); MCH 29.1 pg (26.0-34.0); MCHC 32.8 g/dL (28.0-37.0); MCV 88.8 fL (80.0-100.0); MONOCYTES 9.1 % (1.0-8.0); PLATELET COUNT 201 thou/uL (150-400); RBC 5.11 mil/uL (4.20-5.00); RDW 14.4 % (10.5-14.5); WBC 10.2 thou/uL (4.0-11.0)
[2018-09-22 19:25] LABS: URINE BILIRUBIN NEGATIVE (Negative); URINE BLOOD NEGATIVE (Negative); URINE CLARITY CLEAR; URINE COLOR YELLOW; URINE GLUCOSE-RANDOM* 3+ (Negative); URINE KETONES 1+ (Negative); URINE LEUKOCYTES-REFLEX NEGATIVE (Negative); URINE NITRITE-REFLEX NEGATIVE (Negative); URINE PROTEIN (DIPSTICK) NEGATIVE (Negative); URINE UROBILINOGEN 0.2 E.U./dl (0.2-1.0)
[2018-09-22 19:28] LABS: CALCIUM 9.2 mg/dL (8.5-10.1); POTASSIUM 4.8 mmol/L (3.5-5.1)
[2018-09-22 19:37] LABS: ALBUMIN 3.8 g/dL (3.4-5.0); TOTAL BILIRUBIN 0.5 mg/dL (<0.1-1.0); TOTAL PROTEIN 7.5 g/dL (6.4-8.2); TROPONIN-I 0.07 ng/mL (<0.06)
[2018-09-22 21:58] VITALS: BP 143/69
[2018-09-22 22:09] VITALS: BP 138/75
[2018-09-22 22:29] VITALS: BP 125/90
[2018-09-23 04:22] VITALS: BP 129/58
--- NOTE | 2018-09-23 05:31 | NUR ---
PT IS AN ER ADMIT WHO ARRIVED ON THE FLOOR AT 2215. PT IS ALERT AND ORIENTED WITH DAUGHTER AT BEDSIDE. NO SIGN OF DISTRESS NOTED. PT IS ALERT AND ORIENTED. ADMISSION ASSESSMENT AND EDUCATION COMPLETED. PT IS NPO FOR A POSSIBLE GI PROCEDURE. PT IS STABLE. PT IS ADMITTED WITH ELEVATED TROP. BLOOD PRESSURE IS STABLE. DENIES ANY FURTHER NEEDS AT THIS TIME.
--- NOTE | 2018-09-23 09:04 | EKG ---
[place] [address] [facility] [place] [address] ELECTROCARDIOGRAM REPORT Name: DORENE FOSTER Room #: 212-[facility] M.R.#: [id number] ������������������ Admission: 09/22/18 ������������������ Attend Phys: Jimenez Olivier MD Discharge: ������������������ Date of : 33 Report #: [id number] ����������������������������������������������������������������� [id number] THIS REPORT FOR: //name// [facility] ED Test Date: 2018-09-22 Test Time: 19:33:15 Pat Name: DORENE FOSTER Department: Room: [facility] Gender: F Data Processing Specialist: ARACELIS : 1935 Requested By: Amadou Bal Order Number: [id number] MD: Shawn Farias Measurements Intervals [place] Rate: 82 P: 67 [place]: 145 QRS: -17 QRSD: 82 T: 150 QT: 373 QTc: 436 Interpretive Statements Sinus rhythm Atrial premature complex Borderline left axis deviation Possible anteroseptal infarct, age indeterminate T-wave abnormality, consider lateral ischemia Baseline wander in lead(s) V3 Compared to ECG 07/08/2018 04:02:35 Atrial premature complex(es) now present Electronically Signed On 09-23-2018 9:04:51 CDT by Shawn Farias [email or web address] ��������������������������������������������� <ELECTRONICALLY SIGNED> ���������������������������������������� By: Shawn Farias MD, [facility] ��������������������������������������������� 09/23/18903 32 32 Shawn Farias MD, [facility] /EPI
[2018-09-23 09:15] VITALS: BP 141/60
--- NOTE | 2018-09-23 11:47 | NUR ---
ASSUMED PATIENT CARE THIS AM. PATIENT A&OX4, ROOM AIR. NO N/V, N/T STATED. PAIN STATED IN LOWER BACK, CHRONIC SINCE PREVIOUS FRACTURE. DAUGHTER AT BEDSIDE. IV FLUIDS INFUSING. PATIENT OFF UNIT AT THIS TIME FOR EGD.
[2018-09-23 14:26] VITALS: BP 156/69
[2018-09-23 15:00] VITALS: BP 150/53
--- NOTE | 2018-09-23 15:52 | NUR ---
PATIENT RETURNED FROM EGD, TOLERATING CLEAR LIQUIDS. DAUGHTER AT BEDSIDE. NO COMPLAINTS STATED.
[2018-09-23 16:11] VITALS: BP 132/55
[2018-09-23 20:21] VITALS: BP 140/59
[2018-09-24 04:13] VITALS: BP 157/76
--- NOTE | 2018-09-24 05:55 | NUR ---
ASSUMED PT CARE AT 1900 WITH NO SIGN OF DISTRESS NOTED IN PT. PT IS ALERT AND ORIENTED. NO FAMILY AT BEDSIDE. VITAL SIGNS STABLE, SCHEDULED MEDS ADMINISTERED TO PT. PT TOLERATED PO INTAKE. DENIES ANY FURTHER NEEDS AT THIS TIME.
[2018-09-24 06:55] VITALS: BP 133/61
[2018-09-24 11:19] VITALS: BP 133/61
[2018-09-24 11:50] VITALS: BP 126/50
--- NOTE | 2018-09-24 13:00 | NUR ---
ASSUMED CARE OF PT AT SHIFT CHANGE. ASSESSMENTS CHARTED. MEDS GIVEN PER SEP. PT ALERT AND ORIENTED, DAUGHTER AT BEDSIDE. C/O PAIN IN LOWER BACK, DID NOT WANT PAIN PILL. O2 SATS WNL ON ROOM AIR. VSS, NO S/SX OF CARDIAC OR RESP DISTRESS NOTED. DENIES CHEST PAIN. DC ORDERS ACKNOWLEDGED/IMPLEMENTED. DC PAPERWORK REVIEWED WITH PT AND PT DAUGHTER, COMMUNICATES UNDERSTANDING. DENIES CONCERNS. IV REMOVED, TELE REMOVED, ALL BELONGINGS CHECKED WITH PT. PT LEFT UNIT AT APPROX 1230 ACCOMPANIED BY DAUGHTER.
== END 2018-09-24 12:30 | disposition home or self-care (01) | DRG 392 ==
LOC: ER 18:16 → EROBS 21:35 → 2N 21:35 → ENTRNSPT 09-24 12:29 → 2N 09-24 12:30 → EDTRNSPTSTS 09-24 12:32
PROVIDERS: Emergency Medicine; ADMIT Hospitalist
PROC: 0D758ZZ Dilation of Esophagus, Via Natural or Artificial Opening Endoscopic (ICD-10-PCS; principal; 2018-09-23)
DX: K22.2 Esophageal obstruction (principal); E46 Unspecified protein-calorie malnutrition; Z68.1 Body mass index [BMI] 19.9 or less, adult; H81.10 Benign paroxysmal vertigo, unspecified ear; J44.9 Chronic obstructive pulmonary disease, unspecified; E78.5 Hyperlipidemia, unspecified; E03.9 Hypothyroidism, unspecified; I25.10 Atherosclerotic heart disease of native coronary artery without angina pectoris; M10.9 Gout, unspecified; K21.0 Gastro-esophageal reflux disease with esophagitis; K29.70 Gastritis, unspecified, without bleeding; E86.0 Dehydration; E11.65 Type 2 diabetes mellitus with hyperglycemia; E05.90 Thyrotoxicosis, unspecified without thyrotoxic crisis or storm; M19.90 Unspecified osteoarthritis, unspecified site; Z87.81 Personal history of (healed) traumatic fracture; Z91.81 History of falling; Z86.73 Personal history of transient ischemic attack (TIA), and cerebral infarction without residual deficits; Z90.49 Acquired absence of other specified parts of digestive tract; Z90.710 Acquired absence of both cervix and uterus; Z85.6 Personal history of leukemia; I25.2 Old myocardial infarction; Z95.5 Presence of coronary angioplasty implant and graft; Z79.02 Long term (current) use of antithrombotics/antiplatelets; Z79.82 Long term (current) use of aspirin; Z79.899 Other long term (current) drug therapy; Z88.1 Allergy status to other antibiotic agents; Z88.0 Allergy status to penicillin; Z88.2 Allergy status to sulfonamides; Z88.8 Allergy status to other drugs, medicaments and biological substances; Z91.018 Allergy to other foods; Z82.49 Family history of ischemic heart disease and other diseases of the circulatory system; Z83.3 Family history of diabetes mellitus; Z82.3 Family history of stroke; Z80.8 Family history of malignant neoplasm of other organs or systems
CPT/HCPCS: 10081; 62110; 62900; 70005

== ENCOUNTER 2019-01-06 13:11 | Inpatient (IN) | payer OTHER, MEDICARE ==
[~2019-01-06] VITALS: Ht 165.1 cm; Wt 43.4 kg
[~2019-01-06 13:11] MED LIST changes: +KLOR-CON M2020 MEQ PO; -LEVOTHYROXIN0.075 MG PO; +SYNTHROID50 MCG PO; +TRAMADOL 50 MG50 MG PO
[2019-01-06 13:26] VITALS: BP 178/103
[2019-01-06 16:41] LABS: ABSOLUTE NEUTROPHILS 6.1 thou/uL (1.4-8.2); BASOPHILS 0.9 % (0.0-2.0); EOSINOPHILS 3.2 % (0.0-3.0); HEMATOCRIT 40.8 % (37.0-47.0); HEMOGLOBIN 13.6 gm/dL (12.0-15.0); LYMPHOCYTES 22.7 % (24.0-44.0); MCH 29.6 pg (26.0-34.0); MCHC 33.3 g/dL (28.0-37.0); MCV 89.1 fL (80.0-100.0); MONOCYTES 9.6 % (1.0-8.0); PLATELET COUNT 213 thou/uL (150-400); POLYS 63.6 % (36.0-66.0); RBC 4.58 mil/uL (4.20-5.00); RDW 13.6 % (10.5-14.5); WBC 9.7 thou/uL (4.0-11.0)
[2019-01-06 17:00] LABS: CALCIUM 9.6 mg/dL (8.5-10.1); CREATININE 0.8 mg/dL (0.6-1.0); POTASSIUM 4.1 mmol/L (3.5-5.1)
[2019-01-06 17:06] LABS: ALBUMIN 4.1 g/dL (3.4-5.0); TOTAL BILIRUBIN 0.5 mg/dL (<0.1-1.0); TOTAL PROTEIN 7.8 g/dL (6.4-8.2)
[2019-01-06 19:08] VITALS: BP 161/83
[2019-01-06 19:34] VITALS: BP 153/72
[2019-01-06] MEDS ORDERED: BENADRYL25 MG PO (19:46)
[2019-01-06] MEDS ORDERED: UNICOMPLEX M TA1 TA1 PO (19:47)
[2019-01-06] MEDS ORDERED: VITAMIN D1000 UNI1 PO (19:47)
[2019-01-06] MEDS ORDERED: CALCIUM 600 +1 EAC1 PO (19:48)
[2019-01-06] MEDS ORDERED: PRANDIN1 MG PO (19:49)
[2019-01-06] MEDS ORDERED: SYNTHROID75 MCG PO (20:29)
[2019-01-06] MEDS ORDERED: OMEPRAZOLE20 M1 PO (20:33)
[2019-01-06 21:01] VITALS: BP 142/75
[2019-01-06 22:10] VITALS: BP 140/61
--- NOTE | 2019-01-07 02:49 | NUR ---
ASSUMED CARE OF PT AT 2000HRS. PT IS AOX4 AND WAS ORIENTED TO THE UNIT. PT IS [place] BUT WAS ABLE TO ANSWER ALL ADMISSION RELATED QUESTIONS. PT IS NPO AT THIS TIME. PT HAS A STEADY GAIT AND IS NOT ON FALL PRECAUTION AT THIS TIME. THE PROGRESSED, PT WAS ABLE TO GET SOME SLEEP. HOSPITALIST WAS NOTIFIED. NO NEW ORDERS. WILL CONTINUE TO MONITOR.
[2019-01-07 03:19] VITALS: BP 146/61
[2019-01-07 07:30] VITALS: BP 151/60
[2019-01-07 10:10] LABS: CHOLESTEROL 152 mg/dL (<200); HDL CHOLESTEROL 75 mg/dL (>40); LDL CHOLESTEROL 57 mg/dL (<100); MAGNESIUM 1.7 mg/dL (1.8-2.4); TRIGLYCERIDE 100 mg/dL (<150); VLDL 20 mg/dL (<40)
[2019-01-07 11:10] LABS: TSH 4.663 uIU/mL (0.358-3.740)
--- NOTE | 2019-01-07 14:55 | NUR ---
PT ADMITTED RELATED TO UNABLE TO SWALLOW. CM REVIEWED CHART AND SPOKE WITH CARE TEAM. CM MET WITH PT AT BEDSIDE THIS DAY. PT IS A&O X4. CM ROLE INTRODUCED. PT INDICATED SHE LIVES IN A HOUSE ALONE WITH 4 STEPS TO ENTER AND 13 STEPS INSIDE. 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 PT INDICATED NO HOME HEALTH HISTORY. PT INDICATED SHE WOULDN'T NEED ANYTHING UPON DC. CM TO FOLLOW INDICATED WITH DC PLANNING.
[2019-01-07 15:02] VITALS: BP 177/69
--- NOTE | 2019-01-07 16:58 | P ---
[facility] [place] [address] PROCEDURE REPORT Name: DORENE FOSTER Room #: 455-P ADM IN M.R.#: [id number] Admission: 01/06/19 ������������������ Attend Phys: Ted Durham MD Discharge: ������������������ Date of : 31 Report #: [id number] THIS REPORT FOR: //name// CC: Dr. Tray Clay DATE OF SERVICE: 01/07/2019 PROCEDURE PERFORMED: Upper endoscopy with removal of food impaction. HISTORY OF PRESENT ILLNESS: The patient is an 83-year-old female with a history of dysphagia. She has actually had a known distal esophageal stricture, status post dilation, the most recent one being in September of this year by Dr. Feliz. She did report improvement at that time, but then starting several days ago, had significant increase in her dysphagia. Since then, has been having difficulty even with liquids, but she has been able to keep some liquids down and not vomiting or regurgitating. Because of her ongoing symptoms, she was evaluated in the Emergency Room yesterday and admitted. She does have a history of a Alonzo fundoplication many years ago. Plan is for EGD. DESCRIPTION OF PROCEDURE: The risks and benefits of the procedure were explained to the patient; those risks including but not limited to bleeding, perforation and the risk of sedation. She understood these risks and gave informed consent. Sedation was given using propofol per Anesthesia. Next, using a standard Olympus upper endoscope, the scope was placed in the patient's mouth and advanced under direct vision into the gse-ja-xnieka esophagus, at which point, there was a food bolus noted. This was moving, therefore, I suspect allowing liquids and saliva to pass. However, it was not passing into the stomach with peristalsis. This appears to be a piece of chicken or meat. This was grasped with a Staton net and removed through the patient's mouth without difficulty. The scope was re-introduced into the patient's esophagus. Smaller pieces of food were noted, but these were easily able to be pushed down into the stomach without difficulty. In the distal esophagus, there was an esophageal stricture. There was also a mucosal tear noted in this area; therefore, I did not want to proceed with dilation today. There was also evidence of esophagitis and ulceration. The patient already is taking omeprazole on a daily basis. Overall, the gastric mucosa was normal. On retroflexion, fundoplication changes were noted. Mild gastritis noted in the gastric body. The gastric antrum was normal. Pylorus normal and patent. The duodenal bulb, first and second portion, were all normal. The scope was then withdrawn and the procedure terminated. The patient tolerated the procedure well. [address] [address] PROCEDURE REPORT Name: DORENE FOSTER Room #: 455-P [facility] IN M.R.#: [id number] Admission: 01/06/19 ������������������ Attend Phys: Ted Durham MD Discharge: ������������������ Date of : 33 Report #: [id number] IMPRESSION: 1. Food impaction, status post removal, as described above. 2. Distal esophageal stricture with esophagitis and ulceration, mild. Also mucosal tear. No dilations were performed today. 3. Mild gastritis. RECOMMENDATIONS: 1. We will start clear liquid diet. 2. Advised the patient to chew her food thoroughly and cut up in small pieces. 3. We will add liquid Carafate b.i.d. 4. We would recommend repeating upper endoscopy with a dilation in approximately 2-3 weeks' time as an outpatient. Thank you for allowing me to participate in her care. ��������������������������������������������� <ELECTRONICALLY SIGNED> ���������������������������������������� By: Aki Álvarez MD ��������������������������������������������� 01/07/19 1658 1302 1319 Aki Álvarez MD /nt
[2019-01-07 20:05] VITALS: BP 143/49
--- NOTE | 2019-01-07 20:06 | NUR ---
PT A&OX4, VSS, DENIES PAIN. PATIENT HAD EGD TODAY, FOOD LODGED IN THROAT REMOVED, UNABLE TO DILATE ESOPHAGUS D/T A TEAR BEING PRESENT. PATIENT TOLERATED MECHANICALLY CHOPPED FOOD TODAY. WILL CONTINUE TO MONITOR.
--- NOTE | 2019-01-08 04:31 | NUR ---
Pt. c/o some insomnia and new orders received for po benadryl and melatonin (see cpoe). Benadryl given with little relief (see emar). Melatonin given (see emar) and pt. observed resting quietly. She offers no complaints of pain. Plan for discharge.
[2019-01-08 04:41] LABS: HEMATOCRIT 35.1 % (37.0-47.0); HEMOGLOBIN 11.8 gm/dL (12.0-15.0); MCH 29.9 pg (26.0-34.0); MCHC 33.7 g/dL (28.0-37.0); MCV 88.8 fL (80.0-100.0); RBC 3.96 mil/uL (4.20-5.00); RDW 13.8 % (10.5-14.5); WBC 9.4 thou/uL (4.0-11.0)
[2019-01-08 04:57] VITALS: BP 113/61
[2019-01-08 05:03] LABS: ALBUMIN 3.4 g/dL (3.4-5.0); CALCIUM 8.7 mg/dL (8.5-10.1); CREATININE 0.7 mg/dL (0.6-1.0); MAGNESIUM 1.4 mg/dL (1.8-2.4); POTASSIUM 3.8 mmol/L (3.5-5.1); TOTAL BILIRUBIN 0.4 mg/dL (<0.1-1.0); TOTAL PROTEIN 6.5 g/dL (6.4-8.2)
[2019-01-08 07:14] VITALS: BP 134/72
[2019-01-08] MEDS ORDERED: PEPCID20 MG PO (10:56)
[2019-01-08] MEDS ORDERED: CARAFATE 1 GM TA1 G1 PO (10:56)
[2019-01-08 11:14] VITALS: BP 134/72
--- NOTE | 2019-01-08 11:37 | NUR ---
PT STABLE THIS MORNING, AMBULATED AROUND UNIT. PT DISCHARGED, GIVEN RX'S, RX EDUCATION AND D/C INSTRUCTIONS. PT LEFT UNIT VIA WHEELCHAIR TO PROVATE VEHICLE.
[2019-01-08 12:08] LABS: GLYCOHEMOGLOBIN (HGB A1C) 8.4 % (4.8-5.6)
== END 2019-01-08 11:39 | disposition home or self-care (01) | DRG 391 ==
LOC: ER 13:11 → 4W 17:23 → EROBS 17:23 → 4W 19:44 → ENTRNSPT 01-08 11:31 → EDTRNSPTSTS 01-08 11:32 → 4W 01-08 11:39
PROVIDERS: Emergency Medicine; Internal Medicine Geriatric Medicine; Nurse Practitioner Family; ADMIT Internal Medicine
PROC: 0DC38ZZ Extirpation of Matter from Lower Esophagus, Via Natural or Artificial Opening Endoscopic (ICD-10-PCS; principal; 2019-01-07)
DX: K22.2 Esophageal obstruction (principal); E43 Unspecified severe protein-calorie malnutrition; K22.10 Ulcer of esophagus without bleeding; Z68.1 Body mass index [BMI] 19.9 or less, adult; T18.128A Food in esophagus causing other injury, initial encounter; E11.9 Type 2 diabetes mellitus without complications; I25.10 Atherosclerotic heart disease of native coronary artery without angina pectoris; X58.XXXA Exposure to other specified factors, initial encounter; E03.9 Hypothyroidism, unspecified; J44.9 Chronic obstructive pulmonary disease, unspecified; K21.0 Gastro-esophageal reflux disease with esophagitis; K29.70 Gastritis, unspecified, without bleeding; E78.5 Hyperlipidemia, unspecified; M11.20 Other chondrocalcinosis, unspecified site; I10 Essential (primary) hypertension; Z88.1 Allergy status to other antibiotic agents; Z88.5 Allergy status to narcotic agent; Z88.2 Allergy status to sulfonamides; I25.2 Old myocardial infarction; Z88.8 Allergy status to other drugs, medicaments and biological substances; Z91.018 Allergy to other foods; Z95.1 Presence of aortocoronary bypass graft; Z90.49 Acquired absence of other specified parts of digestive tract; Z90.710 Acquired absence of both cervix and uterus; Z79.4 Long term (current) use of insulin; Z83.3 Family history of diabetes mellitus; Z82.49 Family history of ischemic heart disease and other diseases of the circulatory system; Z80.9 Family history of malignant neoplasm, unspecified; Z82.3 Family history of stroke; Y93.89 Activity, other specified; Y92.89 Other specified places as the place of occurrence of the external cause; Y99.8 Other external cause status
CPT/HCPCS: 10040; 62110; 62900; 70005

== ENCOUNTER → 2019-01-27 | Outpatient (CLI) | payer OTHER, MEDICARE ==
[~2019-01-27] VITALS: Ht 165.1 cm; Wt 43.1 kg
[~2019-01-27] MED LIST changes: +CALCIUM 600 +1 EAC1 PO; +CARAFATE 1 GM TA1 G1 PO; +CARAFATE1 GM PO; +COLCHICINE0.6 MG PO; +OMEPRAZOLE20 M1 PO; +PRANDIN1 MG PO; +SYNTHROID75 MCG PO; +UNICOMPLEX M TA1 TA1 PO
== END | disposition home or self-care (01) ==
LOC: GI 08:51
DX: K22.2 Esophageal obstruction (principal); I10 Essential (primary) hypertension; E11.9 Type 2 diabetes mellitus without complications; I25.2 Old myocardial infarction; E03.9 Hypothyroidism, unspecified; M10.9 Gout, unspecified; J43.9 Emphysema, unspecified; K21.9 Gastro-esophageal reflux disease without esophagitis; Z90.710 Acquired absence of both cervix and uterus; Z98.890 Other specified postprocedural states; Z90.49 Acquired absence of other specified parts of digestive tract; Z79.899 Other long term (current) drug therapy; Z85.828 Personal history of other malignant neoplasm of skin; Z88.0 Allergy status to penicillin; Z88.2 Allergy status to sulfonamides; Z88.8 Allergy status to other drugs, medicaments and biological substances; Z79.82 Long term (current) use of aspirin
CPT/HCPCS: 62110; 62900

== ENCOUNTER 2019-07-16 11:27 | Emergency (ER) | payer OTHER, MEDICARE ==
[~2019-07-16] VITALS: Ht 165.1 cm; Wt 47.2 kg
[2019-07-16] MEDS ORDERED: KLOR-CON 10 ER10 MEQ PO (11:45)
[2019-07-16] MEDS ORDERED: PRILOSEC OTC20 MG PO (11:46)
[2019-07-16 12:03] LABS: ABSOLUTE NEUTROPHILS 5.6 thou/uL (1.4-8.2); BASOPHILS 0.8 % (0.0-2.0); EOSINOPHILS 2.9 % (0.0-3.0); HEMATOCRIT 36.6 % (37.0-47.0); HEMOGLOBIN 11.4 gm/dL (12.0-15.0); LYMPHOCYTES 23.2 % (24.0-44.0); MCH 25.8 pg (26.0-34.0); MCHC 31.2 g/dL (28.0-37.0); MCV 82.7 fL (80.0-100.0); MONOCYTES 9.5 % (1.0-8.0); PLATELET COUNT 218 thou/uL (150-400); POLYS 63.6 % (36.0-66.0); RBC 4.42 mil/uL (4.20-5.00); RDW 15.5 % (10.5-14.5); WBC 8.7 thou/uL (4.0-11.0)
[2019-07-16 12:14] LABS: CALCIUM 9.7 mg/dL (8.5-10.1); POTASSIUM 4.2 mmol/L (3.5-5.1)
[2019-07-16 12:21] LABS: TROPONIN-I 0.07 ng/mL (<0.06)
[2019-07-16 15:04] VITALS: BP 150/59
--- NOTE | 2019-07-17 08:23 | EKG ---
[facility] [place] [place] [address] ELECTROCARDIOGRAM REPORT Name: FOSTERDORENE Room #: [facility] [place])Holly#: [id number] Admission: 07/16/19 Attend Phys: Discharge: 07/16/19 Date of : 33 Report #: [id number] THIS REPORT FOR: //name// [facility] ED Test Date: 2019-07-16 Test Time: 11:40:16 Pat Name: DORENE FOSTER Department: Room: Gender: F Handstitching Machine Collar Feller: [facility] : 1935 Requested By: Tello Mabry Order Number: [id number] MD: Shawn Farias Measurements Intervals [place] Rate: 83 P: 61 MO: 151 QRS: -2 QRSD: 77 T: 147 QT: 368 QTc: 433 Interpretive Statements Sinus rhythm LVH with secondary repolarization abnormality Anterior infarct, old Compared to ECG 09/22/2018 19:33:15 Atrial premature complex(es) no longer present Electronically Signed On 07-17-2019 8:23:28 DBA DEVELOPER by Shawn Farias [email or web address] <ELECTRONICALLY SIGNED> By: Shawn Farias MD, [facility] 07/17/19 0823 1140 1140 Shawn Farias MD, [facility] /EPI
== END 2019-07-16 15:05 | disposition home or self-care (01) ==
LOC: ER 11:27
PROVIDERS: Emergency Medicine
DX: R07.9 Chest pain, unspecified (principal); E11.9 Type 2 diabetes mellitus without complications; E03.9 Hypothyroidism, unspecified; J45.909 Unspecified asthma, uncomplicated; J44.9 Chronic obstructive pulmonary disease, unspecified; K21.9 Gastro-esophageal reflux disease without esophagitis; F32.9 Major depressive disorder, single episode, unspecified; Z95.5 Presence of coronary angioplasty implant and graft; Z90.710 Acquired absence of both cervix and uterus; Z90.49 Acquired absence of other specified parts of digestive tract; Z88.0 Allergy status to penicillin; Z88.1 Allergy status to other antibiotic agents; Z88.2 Allergy status to sulfonamides; Z88.6 Allergy status to analgesic agent; Z88.8 Allergy status to other drugs, medicaments and biological substances

== ENCOUNTER 2019-10-11 07:21 | Inpatient (IN) | payer OTHER, MEDICARE ==
[~2019-10-11] VITALS: Ht 165.1 cm; Wt 44.0 kg
[~2019-10-11 07:21] MED LIST changes: +PRILOSEC OTC20 MG PO
[2019-10-11 07:25] VITALS: BP 134/82
[2019-10-11 08:21] LABS: ABSOLUTE NEUTROPHILS 4.8 thou/uL (1.4-8.2); EOSINOPHILS 3.8 % (0.0-3.0); HEMATOCRIT 39.9 % (37.0-47.0); HEMOGLOBIN 12.8 gm/dL (12.0-15.0); LYMPHOCYTES 24.1 % (24.0-44.0); MCH 26.1 pg (26.0-34.0); MCV 81.6 fL (80.0-100.0); MONOCYTES 9.1 % (1.0-8.0); PLATELET COUNT 217 thou/uL (150-400); RBC 4.89 mil/uL (4.20-5.00); RDW 15.1 % (10.5-14.5); WBC 7.8 thou/uL (4.0-11.0)
[2019-10-11 08:25] LABS: CALCIUM 9.5 mg/dL (8.5-10.1); CREATININE 1.1 mg/dL (0.6-1.0); POTASSIUM 4.2 mmol/L (3.5-5.1)
[2019-10-11 08:33] LABS: TROPONIN-I 0.07 ng/mL (<0.06)
--- NOTE | 2019-10-11 11:27 | EKG ---
[facility] [place] [address] ELECTROCARDIOGRAM REPORT Name: DORENE FOSTER Room #: [facility]#: [id number] Admission: 10/11/19 Attend Phys: Discharge: Date of : 33 Report #: [id number] THIS REPORT FOR: cc: Ciara Clay MD, Sequita MD Couchonnal,Wilfrido Lambert MD ~ THIS REPORT FOR: //name// [facility] ED Test Date: 2019-10-11 Test Time: 08:03:17 Pat Name: DORENE FOSTER Department: Room: Gender: F Otolaryngology Surgeon: [facility] : 1935 Requested By: Penny Alejo Order Number: [id number] MD: Wilfrido Beck Measurements Intervals [place] Rate: 100 P: RI: QRS: -8 QRSD: 81 T: 148 QT: 354 QTc: 457 Interpretive Statements Normal sinus rhythm. LVH with secondary repolarization abnormality Baseline wander in lead(s) V1 NO ischemic changes. Compared to ECG 07/16/2019 11:40:16 Electronically Signed On 10-11-2019 11:25:49 CDT by Wilfrido Beck [email or web address] <ELECTRONICALLY SIGNED> By: Wilfrido Beck MD 10/11/19 1125 2 2 Wilfrido Beck MD /EPI
[2019-10-11 12:24] VITALS: BP 148/93
--- NOTE | 2019-10-11 12:29 | NUR ---
FIRST ATTEMPT TO GIVE REPORT AT 9503
[2019-10-11 12:39] LABS: CHOLESTEROL 127 mg/dL (<200); HDL CHOLESTEROL 73 mg/dL (>40); LDL CHOLESTEROL 27 mg/dL (<100); TC:HDL 1.7 Ratio (Not establshd); TRIGLYCERIDE 135 mg/dL (<150); VLDL 27 mg/dL (<40)
[2019-10-11 13:31] VITALS: BP 169/95
[2019-10-11 13:39] LABS: TSH 1.75 uIU/mL (0.358-3.740)
[2019-10-11 14:45] VITALS: BP 139/81
--- NOTE | 2019-10-11 18:22 | NUR ---
PATIENT ADMIT TO UNIT AT 1440. A/O X4. TOLERATED ON RA. SOB WITH EXERTION. DENIES PAIN. UP AD YI. WILL KEEP MONITOR.
[2019-10-11 20:11] VITALS: BP 142/87
[2019-10-12] VITALS (7 sets, daily range): BP systolic 112–133; BP diastolic 54–86
--- NOTE | 2019-10-12 05:19 | NUR ---
Pt. requested sleep med at HS. Cate given with good result. Also requested for pain med for generalized pain stating she has arthritis and also feels like she has a flu the wya her body is hurting. Tramadol given wih complete relief. A fib with controlled rate. Tolerating room air well but gets short of breath with exertion. Up with steady gait to the bathroom. No dizziness. Continue on isolation to R/O COVID 19 . She is afebrile. Will continue to monitor.
--- NOTE | 2019-10-12 12:18 | NUR ---
pt care assumed at 0700, pt alert and oriented x4, denies chest pain, nausea and vomiting. pt complains of chronic back pain, lidocaine patch applied per order. no signs of distress noted. pt denies any other needs at the moment, call light and table in reach. bed at lowest level, will continue to monitor.
[2019-10-13 04:40] VITALS: BP 132/71
--- NOTE | 2019-10-13 05:59 | NUR ---
PT MAKING SLOW PROGRESS TOWARDS GOALS. PT IN AFIB/FLUTTER THROUGHOUT THE NIGHT. RATE CONTROLLED IN 60-70'S WHILE AT REST. HR DOES SPIKE TO 110-120'S WHEN UP TO THE TOILET BUT QUICKLY DECLINES DOWN TO ACCEPTABLE RATES WITH REST. PT DENIED ANY SOA THROUGHOUT THE NIGHT. HAS NOT BEEN OBSERVED COUGHING.
[2019-10-13 06:19] LABS: HEMATOCRIT 36.5 % (37.0-47.0); HEMOGLOBIN 11.5 gm/dL (12.0-15.0); MCHC 31.5 g/dL (28.0-37.0); MCV 82.6 fL (80.0-100.0); RBC 4.42 mil/uL (4.20-5.00); RDW 16.1 % (10.5-14.5); WBC 11.3 thou/uL (4.0-11.0)
[2019-10-13 07:49] VITALS: BP 118/72
--- NOTE | 2019-10-13 10:32 | NUR ---
Assess due to low BMI 17.7. Admit with SOB. COVID testing pending so did not enter pt room. Hx esophageal stricture, dilitations, skye fundoplication. GI has assessed and pt tolerates soft diet. Eating 60-80% of meals. Wts from past 95-100 lb with lowest wts recorded 80-90 lb. Current wt is 106 lb. RN reports no difficulty with meals. BG elevated up in 400s at times, likely aggravated with steroids and hx DM. Will add carb control diet, otherwise low nutrition risk
--- NOTE | 2019-10-13 11:05 | NUR ---
0900 paged pt daughter a couple of times about bringing pt home milton tee in, no answer. this RN jihan try again.
[2019-10-13 11:40] VITALS: BP 130/110
--- NOTE | 2019-10-13 16:17 | NUR ---
INITIAL ASSESSMENT: SW reviewed chart and spoke with nursing and attending physician. Pt was admitted from home due to hypoxia/dizziness/trachycardia. Pt is currently in Enhanced Isolation to r/o COVID-19. SW spoke with pt via phone. Introduced role of SW. Pt is alert/orientated x 4. Pt reports she lives at home alone. Pt's family is supportive and involved in her care. Pt has a cane and walker at home. Pt states she is able to ambulate independently and does not use either one. Pt has been to [facility], [facility] and [facility] in the past. Pt's PCP is Dr. Ciara Clay. Pt states she will not need anything at time of discharge. SW is following to assist as needed with discharge planning.
[2019-10-13 16:55] VITALS: BP 140/68
[2019-10-13 19:45] VITALS: BP 120/90
--- NOTE | 2019-10-13 23:46 | NUR ---
RESULTS OF COVID-19 SWAB ARE "NOT DETECTED." WILL TRANSFER PT TO ROOM 214. REPORT CALLED TO THIAGO LOPZE. PT INFORMED OF RESULTS AND PENDING TRANSFER TO [address] [place] [address]. PT SPOKE WITH HER DAUGHTER TO LET HER KNOW THE SITUATION. PT BELONGINGS AND MEDS GATHERED. PT STATED "PLEASE CALL AND ASK IF I CAN HAVE ANYTHING ELSE FOR SLEEP, I HAVEN'T BEEN ABLE TO FALL ASLEEP YET." WILL MOVE PT BY BED PER HER REQUEST.
[2019-10-14 00:51] VITALS: BP 136/64
--- NOTE | 2019-10-14 01:31 | NUR ---
PT TRANFERRED FROM [facility] AT AROUND 0045, PT IS A&0X4 AND PLEASANT, MEDICATION GIVEN FOR SLEEP UPON ARRIVAL AT THE UNIT, ASSESSMENTS DONE AND CHARTED, PT IS A FLUTTER ON THE MONITOR, TOOK MEDICATION WITHOUT DIFFICULTY, STATES THAT SHE WANTS TO GET SOME REST, PT SLEEPING AT THIS TIME, NO DISTRESS NOTED, WILL CONTINUE TO MONITOR
[2019-10-14 04:24] VITALS: BP 125/50
[2019-10-14 08:39] VITALS: BP 123/66
[2019-10-14] MEDS ORDERED: ELIQUIS2.5 MG PO ×2 (08:54→11:42)
[2019-10-14] MEDS ORDERED: CARDIZEM CD120 MG PO (08:56)
[2019-10-14] MEDS ORDERED: LEVAQUIN 500 M500 M2 PO (08:56)
[2019-10-14] MEDS ORDERED: PREDNISONE 20 M20 M1 PO (08:57)
--- NOTE | 2019-10-14 09:57 | NUR ---
Sp with dtr Sharon who reports at dc patient does not want HH care. Planned tenative dc today. Dtr reports patient will be staying with family her sister in law who is not working at this time. She reports they will care for her. Updated phys and RN. Plan dc home with no needs and f/u with her PCP.
--- NOTE | 2019-10-14 10:35 | 2DMMODE ---
[facility] [place] [address] 2 D/M-MODE ECHOCARDIOGRAM Name: DORENE FOSTER Room #: 214-P ADM IN M.R.#: [id number] Admission: 10/11/19 Attend Phys: Jose Amin Discharge: Date of : 33 Report #: [id number] THIS REPORT FOR: cc: Ciara Clay MD,Ciara Farias,Shawn Dixon MD [facility] ~ APPROVED REPORT Study performed: 10/14/2019 09:22:55 EXAM: Comprehensive 2D, Doppler, and color-flow Echocardiogram Patient Location: Bedside Room #: 214 Status: routine BSA: 1.45 HR: 93 bpm BP: 123/66 mmHg Rhythm: Atrial Fibrillation Other Information Study Quality: Adequate Indications Atrial Fibrillation Hx: AR, stent, COPD, DM. 2D Dimensions RVDd: 34.11 mm IVSd: 10.20 (7-11mm) LVOT Diam: 19.21 (18-24mm) LVDd: 39.60 mm PWd: 9.45 (7-11mm) LVDs: 25.81 (25-40mm) Aortic Root: 28.49 mm Volumes Left Atrial Volume (Systole) Single Plane 4CH: 64.73 mL Single Plane 2CH: 67.53 mL LA ESV Index: 49.00 mL/m2 Aortic Valve AoV Peak Jose.: 1.92 m/s AO Peak Gr.: 14.83 mmHg LVOT Max P.06 mmHg AO Mean Gr.: 9.20 mmHg AO V2 Mean: 1.43 m/s LVOT Max V: 1.12 m/s [facility] [address] [place] [address] 2 D/M-MODE ECHOCARDIOGRAM Name: DORENE FOSTER Room #: 214-P [facility]#: [id number] Admission: 10/11/19 Attend Phys: Jose Chang Discharge: Date of : 33 Report #: [id number] AO V2 VTI: 33.62 cm MAHNAZ Vmax: 1.69 cm2 Mitral Valve MV Decel. Time: 135.48 ms MV E Max Jose.: 1.24 m/s Pulmonary Valve PV Peak Jose.: 1.14 m/s PV Peak Gr.: 5.18 mmHg Tricuspid Valve TR Peak Jose.: 2.57 m/s TR Peak Gr.: 26.46 mmHg Left Ventricle The left ventricle is normal size. There is normal LV segmental wall motion. Moderate basal septal hypertrophy is present. Left ventricular systolic function is hyperdynamic. LVEF is 65-70%. This study is not technically sufficient to allow evaluation of the LV diastolic function due to atrial fibrillation. Right Ventricle The right ventricle is normal size. The right ventricular systolic function is normal. Atria Left atrium is severely dilated. The right atrium size is normal. Aortic Valve Aortic valve is moderately calcified, mildly stenotic. No aortic regurgitation is present. Calculated aortic valve area is 1.7 cm2 with maximum pressure gradient of 15 mmHg and mean pressure gradient of 9 mmHg. Mitral Valve Mild mitral annular calcification. Mild to moderate mitral regurgitation. No evidence of mitral valve stenosis. Tricuspid Valve The tricuspid valve is normal in structure. Mild to moderate tricuspid regurgitation. Estimated PAP is 30mmHg. Pulmonic Valve Pulmonic valve is not well visualized. [facility] [address] [place] [place] [address] 2 D/M-MODE ECHOCARDIOGRAM Name: FOSTERDORENE M Room #: 214-P [facility] IN ..#: [id number] Admission: 10/11/19 Attend Phys: Jose Chang Discharge: Date of : 33 Report #: [id number] Great Vessels The aortic root is normal in size. Ascending aorta is not well visualized. IVC is not well visualized. Pericardium There is no pericardial effusion. <Conclusion> Left ventricular systolic function is hyperdynamic. There is normal LV segmental wall motion. LVEF is 65-70%. Left atrium is severely dilated. Aortic valve is moderately calcified, mildly stenotic. No insufficiency Calculated aortic valve area is 1.7 cm2 with maximum pressure gradient of 15 mmHg and mean pressure gradient of 9 mmHg. Mild mitral annular calcification. Mild to moderate mitral regurgitation. Mild to moderate tricuspid regurgitation. Estimated pulmonary artery pressure of 30mmHg. There is no pericardial effusion. <ELECTRONICALLY SIGNED> By: Shawn Farias MD, [facility] 10/14/19 1033 1033 1033 Shawn Farias MD, [facility] /INF
[2019-10-14 11:45] VITALS: BP 120/61
--- NOTE | 2019-10-14 14:19 | NUR ---
RECEIVED PT'S CARE AROUND 0730; PT. ON BED; AOX4; DURING AM ASSESSMENT NO C/O PAIN; AM MEDICATIONS GIVEN; EDUCATED ABOUT THE NEED OF WEARING ANTI-SLIPPERING SUCKS; ST. UNDERSTANDING; EDUCATED ABOUT WAITING UNTIL SOMEONE COMES TO THE ROOM AND HELP HER TO STAND UP; ST. UNDERSTANDING; NEEDS TO BE REMAINED FROM TIME TO TIME; DAUGHTER UPDATED ABOUT PT'S HEALTH & POC; D/C ORDERS ON PLACED; PT. NOTIFIED; DAUGHTER CALLED AND NOTIFIED; ST. UNDERSTANDING; AFLUT ON THE MONITOR; ASSESSMENT CHARGED; FOLLOWED POC; WORKING ON D/C ORDERS;
[2019-10-14 14:29] VITALS: BP 120/61
--- NOTE | 2019-10-14 15:12 | NUR ---
orders recv for HH care. Dtr reports they do not want hh care. She reports patient to stay with family.
== END 2019-10-14 15:16 | disposition home or self-care (01) | DRG 191 ==
LOC: ER 07:21 → EROBS 11:52 → 3W 11:52 → 2N 10-14 00:48
PROVIDERS: Emergency Medicine; ADMIT Hospitalist
DX: J44.1 Chronic obstructive pulmonary disease with (acute) exacerbation (principal); I48.19 Other persistent atrial fibrillation; E46 Unspecified protein-calorie malnutrition; Z68.1 Body mass index [BMI] 19.9 or less, adult; I25.10 Atherosclerotic heart disease of native coronary artery without angina pectoris; Z87.01 Personal history of pneumonia (recurrent); G89.29 Other chronic pain; M19.90 Unspecified osteoarthritis, unspecified site; Z60.2 Problems related to living alone; E11.9 Type 2 diabetes mellitus without complications; F32.9 Major depressive disorder, single episode, unspecified; E03.9 Hypothyroidism, unspecified; I34.0 Nonrheumatic mitral (valve) insufficiency; R13.10 Dysphagia, unspecified; G47.00 Insomnia, unspecified; F41.9 Anxiety disorder, unspecified; M11.20 Other chondrocalcinosis, unspecified site; I25.2 Old myocardial infarction; Z95.5 Presence of coronary angioplasty implant and graft; Z90.710 Acquired absence of both cervix and uterus; Z90.49 Acquired absence of other specified parts of digestive tract; Z79.899 Other long term (current) drug therapy; Z88.8 Allergy status to other drugs, medicaments and biological substances; Z88.1 Allergy status to other antibiotic agents; Z88.0 Allergy status to penicillin; Z85.22 Personal history of malignant neoplasm of nasal cavities, middle ear, and accessory sinuses; Z82.49 Family history of ischemic heart disease and other diseases of the circulatory system; Z80.8 Family history of malignant neoplasm of other organs or systems; Z82.3 Family history of stroke; Z83.3 Family history of diabetes mellitus; Z87.891 Personal history of nicotine dependence; Z03.818 Encounter for observation for suspected exposure to other biological agents ruled out
CPT/HCPCS: 10879

== ENCOUNTER 2019-10-21 11:01 | Inpatient (IN) | payer OTHER, MEDICARE ==
[~2019-10-21] VITALS: Ht 152.4 cm; Wt 33.8 kg
[~2019-10-21 11:01] MED LIST changes: +CARDIZEM CD120 MG PO; +ELIQUIS2.5 MG PO
[2019-10-21 11:07] VITALS: BP 128/87
[2019-10-21 11:32] LABS: HEMATOCRIT 39.8 % (37.0-47.0); HEMOGLOBIN 12.6 gm/dL (12.0-15.0); MCHC 31.7 g/dL (28.0-37.0); PLATELET COUNT 240 thou/uL (150-400); RBC 4.85 mil/uL (4.20-5.00); RDW 15.7 % (10.5-14.5); WBC 17.1 thou/uL (4.0-11.0)
[2019-10-21 11:47] LABS: ANION GAP 11 mmol/L (7-16); BUN 38 mg/dL (7-18); CALCIUM 9.5 mg/dL (8.5-10.1); CHLORIDE 100 mmol/L (98-107); CO2 21 mmol/L (21-32); CREATININE 1.1 mg/dL (0.6-1.0); GLUCOSE 327 mg/dL (74-106); SODIUM 132 mmol/L (136-145)
[2019-10-21 11:48] LABS: POTASSIUM 4.2 mmol/L (3.5-5.1)
[2019-10-21 11:57] LABS: ALBUMIN 3.5 g/dL (3.4-5.0); SGOT 82 U/L (15-37); SGPT 131 U/L (30-65); TOTAL BILIRUBIN 0.6 mg/dL (<0.1-1.0); TOTAL PROTEIN 6.9 g/dL (6.4-8.2); TROPONIN-I <0.06 ng/mL (<0.06)
[2019-10-21 12:38] LABS: PLATELET ESTIMATE NORMAL
[2019-10-21 12:58] LABS: URINE BILIRUBIN NEGATIVE (Negative); URINE BLOOD NEGATIVE (Negative); URINE CLARITY CLEAR; URINE COLOR YELLOW; URINE GLUCOSE-RANDOM* 3+ (Negative); URINE KETONES TRACE (Negative); URINE LEUKOCYTES-REFLEX TRACE (Negative); URINE NITRITE-REFLEX NEGATIVE (Negative); URINE PROTEIN (DIPSTICK) NEGATIVE (Negative); URINE SPECIFIC GRAVITY 1.025 (1.005-1.035); URINE UROBILINOGEN 0.2 E.U./dl (0.2-1.0)
[2019-10-21 17:35] VITALS: BP 134/62
[2019-10-21 17:59] LABS: ALBUMIN 3.5 g/dL (3.4-5.0); TOTAL PROTEIN 6.9 g/dL (6.4-8.2)
[2019-10-21 18:20] VITALS: BP 134/62
[2019-10-21 18:45] VITALS: BP 145/70
[2019-10-21 19:02] LABS: TSH 0.789 uIU/mL (0.358-3.740)
[2019-10-21 23:30] VITALS: BP 117/44
[2019-10-22] VITALS (14 sets, daily range): BP systolic 108–141; BP diastolic 30–71
--- NOTE | 2019-10-22 04:52 | NUR ---
ASSUMED CARE AT 1900, PT WAS A NEW ADMITS AT 1800 FOR AFIB/AFLUTTER. ADMISSION COMPLETED. CONSENT FORMS SIGNED. ORDERS ACKNOWLEDGED. 2100 BG WAS CRITICALLY HIGH, UNABLE TO READ ON THE GLUCOMETER. ORDERS FOR SERUM BLOOD GLUCOSE OBTAINED. PT BG WAS 538. THERAPIST PHYSICAL NOTIFIED. ORDERS FOR 16 UNITS INSULIN GIVEN. RECHECKED BLOOD GLUCOSE AFTER 2 HRS WAS 320. THERAPIST PHYSICAL NOTIFIED. FOLLOW SLIDING SCALE AT THIS TIME. 9 UNITS INSULIN GIVEN. RECHECKED AFTER 2 HRS PT GLUCOSE WAS 177. WILL KEEP MONITOR BG SCHEDULED. ASSESSMENTS DOCUMENTED. DAUGHTER CHAU NOTIFIED ABOUT PT CONDITION, (CHAU ALSO PT DPOA.) BOTH PT AND DAUGHTER CONFIRMED THAT PT WISHES ARE DNR. THERAPIST PHYSICAL NOTIFIED, CODE STATUS CHANGED. NO FURTHER C/O AT THIS TIME. WILL CONTINUE TO MONITOR.
[2019-10-22 04:53] LABS: CALCIUM 8.2 mg/dL (8.5-10.1); CREATININE 0.9 mg/dL (0.6-1.0); POTASSIUM 3.6 mmol/L (3.5-5.1)
[2019-10-22 05:08] LABS: GLYCOHEMOGLOBIN (HGB A1C) 10.7 % (4.8-5.6)
--- NOTE | 2019-10-22 05:08 | NUR ---
PT ICU TRANSFER YESTERDAY. ALERT AND ORIENTED. VSS. DRESSING TO THE LEFT NECK S/P ENDARECTOMY C/D/I. PT DENIES SOB, OR CHEST PAIN. NO NAUSEA, VOMITING OR DIARRHEA. VOIDING TO BATHROOM, STANDBY ASSIST. NO FURTHER CONCERNS AT THIS TIME. WILL CONTINUE TO FOLLOW POC.
[2019-10-22 05:18] LABS: HEMATOCRIT 35.8 % (37.0-47.0); HEMOGLOBIN 11.4 gm/dL (12.0-15.0); MCH 26.1 pg (26.0-34.0); MCHC 31.8 g/dL (28.0-37.0); RBC 4.37 mil/uL (4.20-5.00); RDW 15.9 % (10.5-14.5); WBC 15.6 thou/uL (4.0-11.0)
--- NOTE | 2019-10-22 09:07 | NUR ---
Pt awake and alert, asking if we are done yet. VSS, remains in NSR with frequent PAC's. Report called to Robyn in CCU.
--- NOTE | 2019-10-22 09:17 | TEE ---
[facility] [place] [address] TRANSESOPHAGEAL ECHOCARDIOGRAM Name: DORENE FOSTER Room #: 201-P ADM IN M.R.#: [id number] Admission: 10/21/19 Attend Phys: Eric Mcdonald MD Discharge: Date of : 33 Report #: [id number] THIS REPORT FOR: cc: Ciara Clay MD, Sequita MD Lundgren,Shawn Dixon MD [facility] ~ APPROVED REPORT Study performed: 10/22/2019 07:31:04 EXAM: Transesophageal Echocardiogram with Doppler and Cardioversion Patient Location: [facility] Room #: 201 Status: routine BSA: 1.37 HR: 91 bpm BP: 116/36 mmHg Rhythm: Atrial Fibrillation Other Information Study Quality: Adequate Indications Atrial flutter, Cardioversion. Hx: Afib, HI, Stent, HTN, HLP, COPD. Echo Enhancing Agent Indication: Rule out Shunt Agent(s) / Amount(s) Used: Agitated Saline 6 cc Procedure After obtaining informed consent, patient underwent transesophageal echo in the [employer]. Type of Sedation : Conscious Sedation Sedation was administered by JESSICA Ndiaye. Sedation was achieved intravenously with: Versed (3) Fentanyl (75) Transesophageal probe was inserted and advanced into esophagus without difficulty by Shawn Farias MD. The DULCE was performed without complications. Synchronized Cardioversion attempted: Successful Synchronized Cardioversion acheived with 30 Joules after 1 attempt(s). [facility] [address] [place] [address] TRANSESOPHAGEAL ECHOCARDIOGRAM Name: DORENE FOSTER Room #: 201-P [facility] IN ..#: [id number] Admission: 10/21/19 Attend Phys: Eric Mcdonald, Discharge: Date of : 33 Report #: [id number] Rhythm following Synchronized Cardioversion: Normal Sinus Rhythm Throughout the procedure, the blood pressure, pulse oximetry, cardiac rhythm, and rate were monitored. The patient tolerated the procedure without adverse effects. Recovery from conscious sedation was uneventful and vital signs were stable. Left Ventricle The left ventricle is normal size. There is normal LV segmental wall motion. There is normal left ventricular wall thickness. Left ventricular systolic function is normal. LVEF is 65%. Right Ventricle The right ventricle is normal size. The right ventricular systolic function is normal. Atria Left atrium is dilated. No thrombus is visualized in the left atrium or appendage. No shunting noted by contrast bubble injection. The right atrium size is normal. Aortic Valve Aortic valve is moderately calcified; mildly stenotic. No aortic regurgitation is present. Mitral Valve Mild mitral annular calcification. Moderate mitral regurgitation. Tricuspid Valve The tricuspid valve is normal in structure. Mild tricuspid regurgitation. Pulmonic Valve The pulmonary valve is normal in structure. Great Vessels The aortic root is normal in size. IVC is normal in size and collapses >50% with inspiration. Pericardium There is no pericardial effusion. <Conclusion> Left ventricular systolic function is normal. There is normal LV segmental wall motion. [facility] [address] [place] [address] TRANSESOPHAGEAL ECHOCARDIOGRAM Name: DORENE FOSTER Room #: 201-P ADM IN M.R.#: [id number] Admission: 10/21/19 Attend Phys: Eric Mcdonald, Discharge: Date of : 33 Report #: [id number] LVEF is 65%. Left atrium is dilated. No thrombus is visualized in the left atrium or appendage. No shunting noted by contrast bubble injection. Aortic valve is moderately calcified; mildly stenotic. No aortic regurgitation is present. Mild mitral annular calcification. Moderate mitral regurgitation. There is no pericardial effusion. Successful cardioversion of atrial flutter to sinus rhythm following a single 30 J biphasic synchronous shock <ELECTRONICALLY SIGNED> By: Shawn Farias MD, FACC 10/22/19914 4 4 Shawn Farias MD, FAC /INF
--- NOTE | 2019-10-22 09:34 | EKG ---
[facility] [place] [address] ELECTROCARDIOGRAM REPORT Name: DORENE FOSTER Room #: 201-P ADM IN M.R.#: [id number] Admission: 10/21/19 Attend Phys: Eric Mcdonald MD Discharge: Date of : 33 Report #: [id number] THIS REPORT FOR: cc: Ciara Clay MD,Ciara Farias,Shawn Dixon MD [facility] ~ THIS REPORT FOR: //name// [facility] Test Date: 2019-10-22 Test Time: 08:15:32 Pat Name: DORENE FOSTER Department: Room: 201 P Gender: F Utility Bagger: Reyes COOK : 1935 Requested By: Shawn Farias Order Number: [id number] MD: Shawn Farias Measurements Intervals [place] Rate: 77 P: 76 [place]: 152 QRS: -13 QRSD: 79 T: 127 QT: 400 QTc: 453 Interpretive Statements Sinus rhythm Abnormal R-wave progression, early transition Borderline repolarization abnormality Compared to ECG 10/21/2019 11:53:36 Atrial flutter no longer present Electronically Signed On 10-22-2019 9:32:50 CDT by Shawn Farias [email or web address] <ELECTRONICALLY SIGNED> By: Shawn Farias MD, [facility] 10/22/19931 4 4 Shawn Farias MD, [facility] /EPI
[2019-10-22] MEDS ORDERED: PROAIR HFA8.5 GM INH (11:07)
[2019-10-22] MEDS ORDERED: METHYLPREDNISOL32 MG PO (11:11)
[2019-10-22] MEDS ORDERED: LEVAQUIN 500 M500 M3 PO (11:12)
[2019-10-22] MEDS ORDERED: PROTONIX40 M2 PO (11:15)
[2019-10-22] MEDS ORDERED: MAXIMUM D3325 MCG PO (11:23)
--- NOTE | 2019-10-22 12:49 | NUR ---
spoke with patient and dtr. Patient with recent dc. At recent discharge patient went to families home and did not want HH at dc. Sp with dtr Sharon who reports at discharge they do not want home health care. patient will dc to her home and family will be staying with her. Patient has a cane but does not use. She ambulates independently. She reports PCP Dr Huan Clay. Anticipate no needs at dc
--- NOTE | 2019-10-22 16:50 | NUR ---
PT HAD CARDIOVERSION WITH ONE SHOCK THIS MORN AND WAS RETURNED TO ROOM @ 1000...SHE HAS REMAINED IN NSR THIS SHIFT...
[2019-10-23] VITALS (7 sets, daily range): BP systolic 114–168; BP diastolic 40–91
[2019-10-23 05:24] LABS: CALCIUM 8.7 mg/dL (8.5-10.1); CREATININE 1.1 mg/dL (0.6-1.0)
[2019-10-23 05:35] LABS: HEMATOCRIT 32.1 % (37.0-47.0); HEMOGLOBIN 10.3 gm/dL (12.0-15.0); MCH 26.3 pg (26.0-34.0); RBC 3.91 mil/uL (4.20-5.00); RDW 15.7 % (10.5-14.5)
[2019-10-23 05:42] LABS: POTASSIUM 4.8 mmol/L (3.5-5.1)
--- NOTE | 2019-10-23 06:06 | NUR ---
pt resting quietly thru the noc, mirilax given during prior shift resulting in 1 bm today, no c/o pain, vss remains nsr, hopes to go home today, will con't to monitor per ppoc.
--- NOTE | 2019-10-23 08:18 | EKG ---
[facility] [place] [address] ELECTROCARDIOGRAM REPORT Name: DORENE FOSTER Room #: 201-P ADM IN M.R.#: [id number] Admission: 10/21/19 Attend Phys: Eric Mcdonald MD Discharge: Date of : 33 Report #: [id number] THIS REPORT FOR: cc: Ciara Clay MD,Ciara Farias,Shawn Dixon MD [facility] ~ THIS REPORT FOR: //name// [facility] Test Date: 2019-10-23 Test Time: 07:18:08 Pat Name: DORENE FOSTER Department: Room: 201 Gender: F Certified Teacher Assistant: HUGO : 1935 Requested By: Shawn Farias Order Number: [id number] MD: Shawn Farias Measurements Intervals [place] Rate: 79 P: 69 HI: 167 QRS: 0 QRSD: 82 T: 135 QT: 389 QTc: 447 Interpretive Statements Sinus rhythm Atrial premature complex Anteroseptal infarct, old Nonspecific ST and T wave abnormality Compared to ECG 10/22/2019 08:15:32 Atrial premature complex(es) now present Early R wave progression no longer present Electronically Signed On 10-23-2019 8:16:38 CDT by Shawn Farias [email or web address] <ELECTRONICALLY SIGNED> By: Shawn Farias MD, [facility] 10/23/19815 7 7 Shawn Farias MD, [facility] /EPI
[2019-10-23] MEDS ORDERED: PACERONE 200 M200 M1 PO ×2 (08:40)
--- NOTE | 2019-10-23 11:38 | HC ---
[facility] [place] [address] CONSULTATION Name: DORENE FOSTER Room #: 201-P ADM IN M.R.#: [id number] Admission: 10/21/19 Attend Phys: Eric Mcdonald MD Discharge: Date of : 33 Report #: [id number] THIS REPORT FOR: cc: Ciara Clay MD,Miguel Zheng MD, MD ~ CC: Eric Clay DATE OF SERVICE: 10/22/2019 ENDOCRINE CONSULTATION CONSULTING PHYSICIAN: Dr. Mcdonald. REASON FOR CONSULTATION: Type 2 diabetes mellitus, hyperglycemia. HISTORY OF PRESENT ILLNESS: This is an 84-year-old female patient whose medical background is significant for multiple medical issues including COPD and atrial flutter. It appears that the patient was recently hospitalized for the COPD exacerbation and atrial flutter with RVR, at which time she also ruled out for COVID-19. She also has ruled out for PE at that time. The patient went home on a steroid taper for COPD as well as diltiazem for atrial flutter. While this has helped her improve her issues, she later returned yesterday with complaints of lightheadedness and dizziness. On the question of diabetes mellitus, the patient indicates that she has had it for at least 8 years. The patient was unaware of the specifics of her antidiabetic therapy at home as these are handled by her daughter. She was not able to provide specific information regarding the level of control that she has at home. I could see from her records that Glipizide was discontinued at some point due to hypoglycemia. The patient indicates that metformin was also discontinued on the notion of diarrhea, although she does not believe that it was the one causing diarrhea as much as iron supplements did. She is not aware of issues pertaining to diabetic retinopathy, nephropathy or neuropathy. The patient is also known to have hypothyroidism and is maintained on levothyroxine 50 mcg daily. She has not had major issues with weight changes, sweating, heat intolerance, but has had issues with atrial flutter as noted above. She is known to have hypertension and is maintained on losartan 25 mg daily. REVIEW OF SYSTEMS: CONSTITUTIONAL: Fatigue, tiredness, but no fever or chills. HEENT: Negative for sinus pain, ear drainage or sore throat. [address] [address] CONSULTATION Name: KRISTINDORENE M Room #: 201-P [facility] IN M.R.#: [id number] Admission: 10/21/19 Attend Phys: Eric Mcdonald MD Discharge: Date of : 33 Report #: [id number] PULMONARY: Occasional shortness of breath and cough. No hemoptysis. CARDIAC: Palpitations, lightheadedness, dizziness, but no chest pain, occasional issues with lower extremity swelling. GASTROINTESTINAL: Intermittent issues with abdominal discomfort, abdominal distention, nausea, but no vomiting. NEUROLOGY: Lightheadedness, dizziness, but no loss of consciousness, seizure activity or frequent severe headaches. UROLOGY: Negative for dysuria, hematuria, or frequency. PSYCHIATRIC: Negative for delusions or hallucinations. Otherwise, review of systems noncontributory unless mentioned in the HPI. PAST MEDICAL HISTORY: 1. Type 2 diabetes mellitus. 2. Hypothyroidism. 3. Hypertension. 4. Coronary artery disease, status post [place] in 2018, status post 3 coronary arterial stents placement. 5. Chronic obstructive pulmonary disease. 6. Asthma. 7. Gout. 8. GERD. 9. Hyperlipidemia. 10. Depression. 11. Chronic back pain. OUTPATIENT MEDICATIONS: Include atorvastatin 40 mg q.p.m., Eliquis 2.5 mg b.i.d., diltiazem 120 mg daily, prednisone 20 mg daily, Prandin 1 mg a.c. 30 minutes, omeprazole 40 mg daily, vitamin D3 400 units daily, tramadol 50 mg q.6 hours p.r.n., ascorbic acid 3000 mg daily, multivitamin with iron and minerals 1 tablet daily, buspirone 5 mg b.i.d., Benadryl 12.5 mg daily, levothyroxine 50 mcg daily, colchicine 0.6 mg daily, Klor-Con 25 mEq in a.m., calcium carbonate 1 tablet b.i.d., aspirin 81 mg daily, and losartan 25 mg daily. ALLERGIES: ACETAMINOPHEN, GLIPIZIDE, AMOXICILLIN, BETA-BLOCKERS, OMNICEF, AUGMENTIN, IBUPROFEN, PENICILLIN, AND SULFA. PAST SURGICAL HISTORY: Cholecystectomy, hysterectomy, skin cancer excision, Alonzo fundoplication. FAMILY HISTORY: Noncontributory. SOCIAL HISTORY: The patient lives by herself. She denies use of tobacco, alcohol or illicit drugs. PHYSICAL EXAMINATION: GENERAL: Pleasant female patient who is not in apparent distress. [facility] [address] [place] [address] CONSULTATION Name: DORENE FOSTER Room #: 201-P ADM IN M.R.#: [id number] Admission: 10/21/19 Attend Phys: Eric Mcdonald MD Discharge: Date of : 33 Report #: [id number] VITAL SIGNS: Blood pressure is 118/44 mmHg, heart rate is 87 beats per minute, respirations 16 per minute, and temperature 36.8 degrees. CONSTITUTIONAL: The patient is lying down in bed. She appears mostly comfortable, not in apparent distress. HEENT: Anicteric sclerae. Intact extraocular motions. NECK: Supple, no JVD, no thyromegaly. CHEST: Noted for limited air entry bilaterally with scattered rales and rhonchi. HEART: Regular rate and rhythm, no murmurs. ABDOMEN: Soft, lax. No guarding. Active bowel sounds. EXTREMITIES: Lower extremity exam, trace ankle edema. No skin breaks or ulcerations. Pedal pulses are appreciated. NEUROLOGIC: Awake, alert and oriented to time, place and person. The remainder of her examination is nonfocal. PSYCHIATRIC: Pleasant, interactive. Normal mood and affect. LABORATORY RESULTS: On arrival, blood glucose was over 500, dropped to 320, then 177, then 222 mg/dL prior to lunch earlier today. Otherwise; sodium 141, potassium 3.6, chloride 106, CO2 of 22, anion gap 13, BUN 32, creatinine 0.9, glucose 163, lipase 244, total bilirubin 0.6, calcium 8.2, phosphorus 2.1, magnesium 2.0, uric acid 5.2, alkaline phosphatase 73, ALT 131, total protein 6.9, albumin 3.5, and EGFR 59. Lactic acid 1.1. Total CPK 22, troponin negative. Total cholesterol 127, triglycerides 135, HDL 73, LDL 27. BNP 1806. INR 1.0, albumin 3.9. White blood count 15.6, hemoglobin 11.4, hematocrit 35.8, and platelets 204. TSH 0.789. Hemoglobin A1c 10.7%. ASSESSMENT AND PLAN: 1. Type 2 diabetes mellitus. The patient has been under inadequate control overall judging by her hemoglobin A1c. It appears that her only current regimen is that of Prandin. I overall do not favor this category given the viable bouts of hypoglycemia, potentially severe, especially as the patient lives by herself. That said, I would like to switch to a combination of Tradjenta 5 mg daily and a low dose metformin therapy as 750 mg daily, especially that her kidney function as at the worst in stage 3A chronic kidney disease. We will continue with blood glucose monitoring and provide support with Humalog supplemental scale low intensity during this hospital stay, but again I would rather utilize oral agents of low hypoglycemic potential with the patient is released from here eventually. 2. Hypertension. The patient's level of blood pressure control is adequate on the current diltiazem regimen and losartan regimen, she is to continue with both. 3. Hyperlipidemia. The patient is currently on a stable dose of atorvastatin therapy, which she tolerates well. Her recent lipid panel was indicative of adequate control, she is to continue with the same. 4. Hypothyroidism. The patient is on a stable dose of levothyroxine 75 mcg daily, which is being upheld during this hospital stay. The patient's TSH was a [facility] [address] [place] [address] CONSULTATION Name: DORENE FOSTER Room #: 201-P [facility] IN M.R.#: [id number] Admission: 10/21/19 Attend Phys: Eric Mcdonald MD Discharge: Date of : 33 Report #: [id number] bit on the lower side at 0.78. Given the patient's propensity for atrial flutter with rapid ventricular response, I would rather have her TSH closer to 2.5 or 3. That said, I will cut back her Synthroid dose to 50 mcg daily with the stress on the need to follow up for thyroid function studies in 6-8 weeks to ensure the adequacy of this dose. I reviewed the patient's clinical care notes, laboratory data, and other pertinent clinical information past and present for over 35 minutes. I appreciate this consultation by Dr. Mcdonald. <ELECTRONICALLY SIGNED> By: Miguel Puga MD 10/23/19 1138 [id number] Miguel Puga MD /nt
--- NOTE | 2019-10-23 15:26 | NUR ---
Case discussed with the care team. Therapy seeing the pt. Possible dc home tomorrow. Pt indicates to nursing she may be open to HH f/u. Will see how she does overnight and touch base with the care team for recommendations regarding HH. Will follow.
--- NOTE | 2019-10-23 19:52 | NUR ---
ASSUMED CARE 0700, ALERT X4, FROM HOME ALONE. DENIES SOB, DENIES CHEST PAIN. COMPLAINTS OF CONSTIPATION TREATED WITH ORAL MEDS PER ORERED WITH PARTIAL RELIEF. PT GIVEN SUPOSITORY AND ATTEMPTED TO DIGITALLY REMOVE STOOL AND IRRITATED ANAL AREA. NOTIFIED DR CAMERON OF PT'S COMPLAINTS OF CONSTIPATION AND AND HEMORIODAL PAIN. PATIENT ANXIOUS THROUGH OUT THE SHIFT C COMPLAINTS OF DIZZINESS. UPDATED PT'S DAUGHTER REGARDING CARE. NSR ON TELE. STAND BY TO TOILET OR COMMODE. WILL DC HOME WITH HH WHEN MEDICALLY STABLE.
[2019-10-24 04:15] VITALS: BP 132/68
--- NOTE | 2019-10-24 04:16 | NUR ---
SLEPT PART OF SHIFT. ASSIST UP TO BATHROOM NEEDED. UP AT 0200 AND INCONTINENT OF MODERATE AMOUNT LOOSE BROWN STOOL AND URINE ON FLOOR. NO FURTHER COMPLAINTS OF HEMMOROID PAIN THIS SHIFT SINCE BEDTIME. WORKING SLOWLY TOWARDS DISCHARGE GOALS. CONTINUE TO ASESS CLOSELY. 0345 STATES SHE JUST CANT VOID. BLADDER SCAN 384, CALLED [facility] [employer] OPERATOR ORDRES TO RESCAN AT 0500 AND IF >400 TO STRAIGHT CATH.
[2019-10-24 05:19] LABS: HEMATOCRIT 35.2 % (37.0-47.0); HEMOGLOBIN 11.3 gm/dL (12.0-15.0); MCH 26.2 pg (26.0-34.0); MCHC 32.1 g/dL (28.0-37.0); MCV 81.9 fL (80.0-100.0); RBC 4.3 mil/uL (4.20-5.00); RDW 16.4 % (10.5-14.5); WBC 18.7 thou/uL (4.0-11.0)
--- NOTE | 2019-10-24 05:34 | NUR ---
ASSISTED TO COMODE AND PATIENT VOIDED 125CC. BLADDER SCAN 342CC RESIDUAL. WILL CONTINUE TO ASSES.
[2019-10-24 06:05] LABS: CALCIUM 8.9 mg/dL (8.5-10.1); CREATININE 1.2 mg/dL (0.6-1.0); MAGNESIUM 1.9 mg/dL (1.8-2.4); POTASSIUM 4.5 mmol/L (3.5-5.1)
[2019-10-24 07:15] VITALS: BP 146/65
[2019-10-24] MEDS ORDERED: LANTUS SUBQ ×2 (10:38→12:26)
[2019-10-24] MEDS ORDERED: GLUCOPHAGE XR750 MG PO (10:38)
[2019-10-24] MEDS ORDERED: TRADJENTA5 MG PO (10:38)
[2019-10-24] MEDS ORDERED: PREDNISONE 20 M20 M1 PO (10:38)
[2019-10-24] MEDS ORDERED: FLOMAX0.4 MG PO (10:38)
[2019-10-24 11:20] VITALS: BP 117/47
--- NOTE | 2019-10-24 12:25 | EKG ---
[facility] [place] [address] ELECTROCARDIOGRAM REPORT Name: DORENE FOSTER Room #: 201-P ADM IN M.R.#: [id number] Admission: 10/21/19 Attend Phys: Eric Mcdonald MD Discharge: Date of : 33 Report #: [id number] THIS REPORT FOR: cc: Ciara Clay MD,Ciara Farias,Shawn Dixon MD [facility] ~ THIS REPORT FOR: //name// [facility] ED Test Date: 2019-10-21 Test Time: 11:53:36 Pat Name: DORENE FOSTER Department: Room: [facility] Gender: F Avp: TEDDY : 1935 Requested By: Guy Boateng Order Number: [id number] MD: Shawn Farias Measurements Intervals [place] Rate: 99 P: MN: QRS: -18 QRSD: 90 T: 143 QT: 346 QTc: 444 Interpretive Statements Atrial flutter LVH with secondary repolarization abnormality Compared to ECG 10/11/2019 08:03:17 No significant change was found Electronically Signed On 10-21-2019 16:24:51 CDT by Shawn Farias [email or web address] <ELECTRONICALLY SIGNED> By: Shawn Farias MD, [facility] 10/21/19 1624 1153 1153 Shawn Farias MD, [facility] /EPI
--- NOTE | 2019-10-24 13:47 | NUR ---
DC planning options reviewed with all parties. Care team recommending inpt rehab vs HH with the pt. Dtr Maria E and pt have discussed with the other family members and they are agreeable to [facility] acute rehab here or home with HH and they could try to put together a schedule to cover some one with her most of the time. [facility] eval completed and they can accept her today. All agreeable. Nursing and the attending updated. Nursing to call dtr with the rm number later this afternoon once they give report. Pt's goal is to return home to her plof. Family is supportive and all live close by. They are open to Hh when dc'd from rehab as well.
--- NOTE | 2019-10-24 14:31 | NUR ---
FAXED REFERRAL TO [facility] SPOKE WITH SOO IN INTAKE SHE RECEIVED REFERRAL AND WILL BE ABLE TO ACCEPT, NOTIFIED [facility] THAT PT WAS ACCEPTED TO [facility].
[2019-10-24 16:29] VITALS: BP 115/69
--- NOTE | 2019-10-24 16:40 | NUR ---
SUBHASH, WHEEL MOLDER, PROVIDED EDUCATION TO THE PATIENT AND HER DAUGHTER, CHAU, RE: POSSIBLE ADMISSION TO [facility] UNIT THIS DATE WELL GOALS, REHAB SCHEDULE AND ITEMS TO BRING TO REHAB. BOTH PARTIES STATED THE INFORMATION WAS UNDERSTOOD AND WERE AGREEABLE WITH PLAN FOR DISCHARGE TO [facility].
--- NOTE | 2019-10-24 17:40 | NUR ---
ASSUMED CARE 0700. ALERT X3,ANXIOUS, DENIES SOB, DENIES CHEST PAIN, POOT NUTRITIONAL INTACK. VOICED SHE HAS HX OF ESOPHAGEAL STRETCHING. ATE 75% OF NOON AND EVENING MEAL OF SOUP AND CRACKERS. INCONTINENT OF STOOL AND BLADDER. STAND BY ASSIST. LOW BP AT NOON HOUR DR CAMERON AND JIM GUILLEN FROM CARDIOLOGY NOTIFIED. ORDER FOR 250 BOLUS GIVEN. LAST BP 115/69. WILL DC TO [facility] TODAY. DAUGHTER UPDATED ON PATIENT STATUS. WILL TRANSFER TO [facility] AFTER SHIFT CHANGE.
== END 2019-10-24 20:01 | DRG 308 ==
LOC: ER 11:01 → 2N 15:31 → EROBS 15:31 → 2N 18:25
PROVIDERS: Physician Assistant; ADMIT Internal Medicine; ATTEND Internal Medicine
PROC: 5A2204Z Restoration of Cardiac Rhythm, Single (ICD-10-PCS; principal; 2019-10-22)
PROC: B24BZZ4 Ultrasonography of Heart with Aorta, Transesophageal (ICD-10-PCS; principal; 2019-10-22)
DX: I48.91 Unspecified atrial fibrillation (principal); E43 Unspecified severe protein-calorie malnutrition; N17.9 Acute kidney failure, unspecified; J44.1 Chronic obstructive pulmonary disease with (acute) exacerbation; D68.59 Other primary thrombophilia; Z68.1 Body mass index [BMI] 19.9 or less, adult; D72.829 Elevated white blood cell count, unspecified; I48.92 Unspecified atrial flutter; K21.9 Gastro-esophageal reflux disease without esophagitis; F32.9 Major depressive disorder, single episode, unspecified; G89.29 Other chronic pain; M54.9 Dorsalgia, unspecified; J45.909 Unspecified asthma, uncomplicated; E11.65 Type 2 diabetes mellitus with hyperglycemia; I34.0 Nonrheumatic mitral (valve) insufficiency; E03.9 Hypothyroidism, unspecified; M10.9 Gout, unspecified; Z90.710 Acquired absence of both cervix and uterus; Z79.01 Long term (current) use of anticoagulants; I25.2 Old myocardial infarction; Z95.5 Presence of coronary angioplasty implant and graft; Z90.49 Acquired absence of other specified parts of digestive tract; Z88.6 Allergy status to analgesic agent; Z88.1 Allergy status to other antibiotic agents; Z88.0 Allergy status to penicillin; Z88.2 Allergy status to sulfonamides; Z88.8 Allergy status to other drugs, medicaments and biological substances; Z83.3 Family history of diabetes mellitus; Z82.49 Family history of ischemic heart disease and other diseases of the circulatory system; Z82.3 Family history of stroke
CPT/HCPCS: 10081

== ENCOUNTER 2019-10-24 15:43 | Inpatient (IN) | payer OTHER, MEDICARE ==
[~2019-10-24] VITALS: Ht 162.6 cm; Wt 50.1 kg
[~2019-10-24 15:43] MED LIST changes: +FLOMAX0.4 MG PO; +GLUCOPHAGE XR750 MG PO; +LANTUS SUBQ; +LEVAQUIN 500 M500 M3 PO; +MAXIMUM D3325 MCG PO; +METHYLPREDNISOL32 MG PO; +PACERONE 200 M200 M1 PO; +PROAIR HFA8.5 GM INH; +PROTONIX40 M2 PO; +TRADJENTA5 MG PO
[2019-10-24 20:55] VITALS: BP 117/79
--- NOTE | 2019-10-24 21:00 | NUR ---
TO 505 FOR THERAPIES. PATIENT HAS TROUBLE SWALLOWING LARGE PILLS LIKE CALCIUM AND POTASSIUM AND STATES SHE HAS HAD SOME ESOPHAGEAL DILATION IN THE PAST, EATS SOFT FOOD AND SOUPS. UP TO TOILET WITH GAIT BELT AND STANDBY ASSIST. HAS MILD HEARING DEFECIT WITH NO HEARING AIDS. BED ALARM EXPLAINED TO PATIENT FOR HER SAFETY. LIVES AT HOME ALONE WITH DAUGHTER JESUSITA THAT LIVES NEXT DOOR AN ANOTHER CHILD JUST AROUND THE CORNER WHO CHECKS ON HER FREQUENTLY.
[2019-10-25 04:54] LABS: HEMATOCRIT 32.5 % (37.0-47.0); HEMOGLOBIN 10.6 gm/dL (12.0-15.0); MCH 26.6 pg (26.0-34.0); MCHC 32.6 g/dL (28.0-37.0); MCV 81.6 fL (80.0-100.0); RBC 3.98 mil/uL (4.20-5.00)
[2019-10-25 05:06] LABS: CALCIUM 8.8 mg/dL (8.5-10.1); CREATININE 0.9 mg/dL (0.6-1.0); MAGNESIUM 1.7 mg/dL (1.8-2.4); POTASSIUM 4.2 mmol/L (3.5-5.1)
[2019-10-25 08:00] VITALS: BP 128/58
--- NOTE | 2019-10-25 15:58 | NUR ---
ASSUMED CARE AT 0700, PT A&0 X 4, NO ACUTE DISTRESS DURING SHIFT. VSS 02 ON RA. PT DENIES ANY PAIN, EXPERIENCED SOME HEMORRHOID DISCOMFORT, NOTIFIED DR CORTEZ AND PT RECEIVED HYDROCORTISONE SUPP WITH ADEQUATE RELIEF. PT ALSO EXPERIENCED SOME N/V, SPEECH EVAL DONE AND GI CONSULTED. PT CONTINENT OF B&B, BM TODAY. RESTING IN BED, CALL LIGHT WITHIN REACH, WILL CONTINUE TO MONITOR PER POC.
[2019-10-25 19:03] VITALS: BP 136/60
--- NOTE | 2019-10-26 00:10 | NUR ---
TOOK OVER PT CARE AT 1900. PT ASSESSMENT DONE AND VSS. BS WAS 301. MEDS GIVEN AND WELL TOLERATED. NO LISPRO ON MEDICATION PROFILE ALTHOUGH LISPRO IS IN HER MED DRAWER. DR. WEAVER CALLED FOR ORDERS. ORDERS RECEIVED FOR LOW DOSE SCALE. INSULIN GIVEN. FALL PRECAUTIONS IN PLACE. SLEEPING OVERNIGHT. HOURLY ROUNDING DONE. CALL LIGHT IN PLACE. WILL CONTINUE TO MONITOR.
[2019-10-26 06:55] LABS: HEMATOCRIT 39.3 % (37.0-47.0); HEMOGLOBIN 12.5 gm/dL (12.0-15.0); MCH 26.2 pg (26.0-34.0); MCHC 31.9 g/dL (28.0-37.0); PLATELET COUNT 216 thou/uL (150-400); RBC 4.79 mil/uL (4.20-5.00); RDW 16.4 % (10.5-14.5)
[2019-10-26 07:07] LABS: CALCIUM 8.8 mg/dL (8.5-10.1); CREATININE 0.9 mg/dL (0.6-1.0); MAGNESIUM 1.7 mg/dL (1.8-2.4); PHOSPHORUS 4.1 mg/dL (2.5-4.9); POTASSIUM 3.8 mmol/L (3.5-5.1); TOTAL BILIRUBIN 0.7 mg/dL (<0.1-1.0); TOTAL PROTEIN 6.1 g/dL (6.4-8.2)
[2019-10-26 07:30] VITALS: BP 147/75
[2019-10-26 07:31] VITALS: BP 129/70
[2019-10-26 07:32] VITALS: BP 136/70
[2019-10-26 07:43] LABS: ABSOLUTE NEUTROPHILS 13.3 thou/uL (1.4-8.2); PLATELET ESTIMATE NORMAL
--- NOTE | 2019-10-26 11:40 | HC ---
[facility] [place] [address] CONSULTATION Name: DORENE FOSTER Room #: 505-P [facility] IN M.R.#: [id number] Admission: 10/24/19 Attend Phys: Derek Kim MD Discharge: Date of : 33 Report #: [id number] THIS REPORT FOR: cc: Ciara Clay MD,Miguel Zheng MD, MD ~ CC: Derek Clay DATE OF SERVICE: 10/25/2019 ENDOCRINE CONSULTATION NOTE CONSULTING PHYSICIAN: Dr. Derek Kim. REASON FOR CONSULTATION: Type 2 diabetes mellitus. HISTORY OF PRESENT ILLNESS: This is an 84-year-old female patient whose medical background is significant for multiple medical issues including type 2 diabetes mellitus, hypothyroidism, as well as atrial flutter. The patient was admitted to [facility] earlier last week with complaints of palpitations, dizziness, lightheadedness and was managed for atrial flutter with RVR. The patient has had type 2 diabetes mellitus for many years and her course has been marked by severe diarrhea in response to metformin therapy, which prompted the full cessation of that in the past as well as severe hypoglycemia with glipizide, which forced cessation as well. The patient's most recent antidiabetic regimen consisted of Prandin 1 mg 3 times a day. It appears that the patient is rather sporadic about blood glucose monitoring at home. When seen at [facility], the patient had blood glucose values that were often in the 300 mg/dL range and her hemoglobin A1c proved to be high at 10.7%. Subsequently, the patient was placed on Tradjenta and Lantus insulin at doses ranging from 12-18 units and seemed to do much better with that with blood glucose ranging in the mid 100s to low 200 mg/dL range. The patient is not aware of issues pertaining to diabetic retinopathy, neuropathy or coronary artery disease. The patient is also known to have hypothyroidism and has been maintained on a stable dose of levothyroxine of 75 mcg daily, which has been dropped down to 50 mcg daily during her recent admission due to concerns of an aggressively control TSH of 0.78. The patient was admitted yesterday to the rehab unit for rehabilitative purposes. The patient has done well on the combination of diltiazem and amiodarone from [address] [address] CONSULTATION Name: DORENE FOSTER Antonio Room #: 505-P [facility] IN ..#: [id number] Admission: 10/24/19 Attend Phys: Derek Kim MD Discharge: Date of : 33 Report #: [id number] the cardiac standpoint. REVIEW OF SYSTEMS: CONSTITUTIONAL: Fatigue, tiredness, but not fever or chills or body weight changes. HEENT: Negative for sore throat, sinus pain or ear drainage. PULMONARY: Occasional shortness of breath and cough, but no hemoptysis. CARDIAC: Palpitations, lightheadedness, but not syncope. No chest pain. GASTROINTESTINAL: Abdominal discomfort, occasional nausea, no vomiting. She has ongoing active and bothersome issues with hemorrhoids. NEUROLOGY: Negative for loss of consciousness, seizure activity or severe frequent headaches, but noted for lightheadedness and dizziness. PSYCHIATRIC: Negative for delusions or hallucinations. Otherwise, review of systems noncontributory other than those mentioned in HPI. PAST MEDICAL HISTORY: 1. Type 2 diabetes mellitus. 2. Hypothyroidism. 3. Atrial flutter with recent cardioversion. 4. Coronary artery disease. 5. Protein energy malnutrition. 6. Qhrn-tf-bhroctuz MR and TR. 7. Hypertension. 8. Gout. 9. GERD. 10. Degenerative joint disease. 11. Osteoarthritis. CURRENT MEDICATIONS: 1. Amiodarone 200 mg daily. 2. Vitamin D 400 units daily. 3. Diltiazem 120 mg daily. 4. Lantus insulin 12 units daily. 5. Levothyroxine 50 mcg daily. 6. Pantoprazole 40 mg daily. 7. Prednisone 30 mg daily. 8. Atorvastatin 40 mg daily. 9. Albuterol p.r.n. ALLERGIES: THE PATIENT IS ALLERGIC TO: 1. METFORMIN. 2. GLIPIZIDE. 3. ACETAMINOPHEN. 4. AMOXICILLIN. 5. BETA BLOCKERS. 6. CEFDINIR. [facility] [address] [place] [address] CONSULTATION Name: DORENE FOSTER Room #: 505-P [facility] IN M.R.#: [id number] Admission: 10/24/19 Attend Phys: Derek Kim MD Discharge: Date of : 33 Report #: [id number] 7. IBUPROFEN. 8. PENICILLINS. 9. SULFA. FAMILY HISTORY: Noncontributory. SOCIAL HISTORY: The patient lives by herself. Denies use of tobacco, alcohol or illicit drugs. Her daughter Maria E is intimately involved in her care and is the power of deputy attorney general. PHYSICAL EXAMINATION: GENERAL: Pleasant elderly female patient who is not in apparent pain or distress. VITAL SIGNS: Blood pressure is 128/58 mmHg, heart rate is 75 beats per minute, respirations 20 per minute, temperature 36.9 degrees. CONSTITUTIONAL: The patient is lying down in bed, seems comfortable, not in apparent distress. HEENT: Anicteric sclerae. Intact extraocular motions. NECK: Supple, without JVD, carotid bruits or lymphadenopathy. No thyromegaly. CHEST: Noted for limited air entry bilaterally with scattered rales and rhonchi. HEART: Irregularly irregular. No murmurs, rubs or gallops. ABDOMEN: Soft, lax. No guarding. Active bowel sounds. EXTREMITIES: Noted for trace ankle edema. No skin breaks. Pedal pulses are faint. NEUROLOGIC: Awake, alert and oriented to time, place and person. The remainder of her examination is nonfocal. PSYCHIATRIC: Pleasant, interactive. Normal thought process. Normal mood and affect. LABORATORY DATA: Blood glucose values over the past 24 hours have ranged from 131-255 mg/dL. The most recent was at 212 mg/dL. Otherwise, sodium 136, potassium 4.2, chloride 104, CO2 of 25, anion gap 7, BUN 17, creatinine 0.9, AST 82. Lipase 244, total bilirubin 0.6, calcium 8.8, phosphorus 2.1, magnesium 1.7, uric acid 5.2, alkaline phosphatase 73, total protein 6.9, albumin 3.5, EGFR 59. Lactic acid 1.1. Total CPK 22. Total cholesterol 127, triglycerides 135, HDL 73, LDL 27. BNP 1806. Hemoglobin A1c 10.7%. TSH 0.789. ASSESSMENT AND PLAN: 1. Type 2 diabetes mellitus. As noted above, the patient has an uncontrolled baseline as per her documented blood glucose values on arrival as well as her hemoglobin A1c of 10.7%. I have had multiple discussions with the patient as well as her caregiving daughter Maria E over the past few days in terms of the best course of action now and when she gets discharged home. We agreed that she would be best served by staying on Tradjenta 5 mg daily and a single daily injection of insulin. I had started out the patient on 16 units, but her drop [facility] [address] [place] [address] CONSULTATION Name: TERRA FOSTERVANDANA Alvarez Room #: 505-P [facility] IN .R.#: [id number] Admission: 10/24/19 Attend Phys: Derek Kim MD Discharge: Date of : 33 Report #: [id number] has been remarkable and quick and I tapered it down to 12 units daily, which she remains on. Blood glucose values have been at the upper tear of target range. Just above that said, I will advance her Lantus insulin dose to 14 units daily while maintaining the Tradjenta dosage as it. Blood glucose monitoring will continue a.c. and at bedtime and we will maintain a low intensity Humalog supplemental scale for support as needed. 2. Hypothyroidism. The patient has had chronic hypothyroidism with a stable levothyroxine dose of 75 mcg daily. However, with her TSH at 0.78 and with her active recurring issues with atrial flutter and RVR, I believe the patient would be better served targeting a TSH of 2.5 to 3. That said, I drop her levothyroxine dose to 50 mcg daily and will maintain the same until her next thyroid function study followup in 6-8 weeks from now. 3. Hyperlipidemia. The patient is on atorvastatin therapy and tolerates it well, she is under a good level of lipid control and she is to continue with the same. 4. Hypertension. The patient's level of blood pressure control is adequate, she is to continue the same regimen. I certainly appreciate this consultation by Dr. Kim. <ELECTRONICALLY SIGNED> By: Miguel Puga MD 10/26/19 1140 1334 [id number] Miguel Puga MD /nt
[2019-10-26 14:33] LABS: URINE BILIRUBIN NEGATIVE (Negative); URINE BLOOD 1+ (Negative); URINE CLARITY CLEAR; URINE COLOR YELLOW; URINE GLUCOSE-RANDOM* 3+ (Negative); URINE KETONES NEGATIVE (Negative); URINE LEUKOCYTES-REFLEX NEGATIVE (Negative); URINE NITRITE-REFLEX NEGATIVE (Negative); URINE PROTEIN (DIPSTICK) NEGATIVE (Negative); URINE UROBILINOGEN 0.2 E.U./dl (0.2-1.0)
[2019-10-26 14:40] LABS: URINE RBC 3-10 Few /HPF (0-2)
[2019-10-26 14:41] LABS: BACTERIA-REFLEX 1-9 Few /HPF (None Seen); CASTS None Seen /LPF (None Seen); CRYSTALS None Seen /LPF (None Seen); SQUAMOUS 0-3 Few /LPF (0-3); URINE WBC-REFLEX None Seen /HPF (0-5)
--- NOTE | 2019-10-26 15:46 | NUR ---
ASSUMED CARE AT 0700, PT A&O X 4, NO ACUTE DISTRESS DURING SHIFT. VSS, O2 ON RA. PT RECEIVED PRN HYDROCORTISONE FOR DISCOMFORT. PT BLADDER SCANNED WITH 255, URINATED AND HAD RESIDUAL 132. UA SENT TO LAB FOR CULTURE. PT ABLE TO URINES 2 MORE TIMES CLEAR AND YELLOW. NPO AT MIDNIGHT FOR EDG TOMORROW PER GI . BM X 2 TODAY. RESTING IN BED, CALL LIGHT WITHIN REACH, WILL CONTINUE TO MONITOR PER POC.
[2019-10-26 18:55] VITALS: BP 152/87
--- NOTE | 2019-10-27 02:04 | NUR ---
UP TO TOILET WITH GAIT BELT AND STANDBY ASSIST, VOIDS WELL. SLEEPING NOW AFTER TAKING BENADRYL AND TRAMADOL. AWARE OF NEED TO BE NPO AFTER MIDNIGHT FOR EGD. HOPES THAT DR Pierce WILL DILATE HER ESOPHAGUS WHILE HE IS LOOKING.
[2019-10-27 07:20] VITALS: BP 138/74
[2019-10-27 07:59] VITALS: BP 138/74
[2019-10-27 08:03] VITALS: BP 170/80
[2019-10-27 08:07] VITALS: BP 139/60
--- NOTE | 2019-10-27 08:09 | NUR ---
ASSUMED CARE AT 0700, RECEIVED REPORT FROM NIGHT RN THAT PT HAS NPO SINCE LAST NIGHT. WILL HAVE EGD FOR ESOPHAGYL STRETCHING TODAY. PT A&O X 4, NINILCHIK. ABLE TO VOICE HER NEED. VSS, O2 ON RA. ORTHOSTATIC TAKEN. LYING B/P 138/74, HR 69, SITTING 170/80, HR 76, STANDING 139/60, HR 86.PT RECEIVED PRN HYDROCORTISONE FOR DISCOMFORT. HELD ALL MORNING MEDS THIS AM. BS 174, NO INSULIN GIVEN SINCE PT HAS BEEN ON NPO. DENIES PAIN, SOB, N/V. OFFERED SUPPORTIVE CARE, DISCUSSED ABOUT CARE PLAN. PT PARTICIPATES AND AWARE OF PROCEDURE THIS AM. NO QUESTION. GIVE HYDROCORTISON SCHEDULE THIS AM. FALL PRECAUTION IN PLACE. PT UP WITH CGA NO DEVICE. LEFT UNIT AT THIS MOMENT FOR EGD. WILL CONTINUE TO MONITOR.
--- NOTE | 2019-10-27 13:35 | NUR ---
chart review, cm visited with rufina daughter via phone call, intro to cm, team meetings and transition of care. cm also visited with anne marie via phone call she reported " live alone, 3 steps to enter, 7 steps inside the house. i don't think going to need anything since doing much better today. has family support. has cane and walker. skilled rehab and hh in past, ok with [facility] if need it"/anne marie and daughter rufina. will cont following as needed for dc needs
[2019-10-27 19:20] VITALS: BP 136/50
--- NOTE | 2019-10-28 01:40 | NUR ---
PT ALERT AND ORIENTED X 4. AMB TO BR WITH ASSIST X 1 WITHOUT DIFFICULTY. PT TAKES MEDS CRUSHED IN YOGURT WITHOUT DIFFICULTY. BLOOD SUGAR 170 AT HS. INSULIN GIVEN ORDERED. PT DENIES PAIN OR DISCOMFORT. BENADRYL GIVEN AT HS PER PT REQUEST FOR SLEEP. BED ALARM ON FOR SAFETY. PT APPEARS TO BE SLEEPING ON HOURLY ROUNDS.
[2019-10-28 08:00] VITALS: BP 141/56
--- NOTE | 2019-10-28 10:47 | NUR ---
ASSUMED CARE AT 0700. PATIENT IS ALERT AND ORIENTED X4, BUT FORGETFUL. PATIENT IS [place]. PATIENT IS UP WITH ASSIST OF 1 STAFF AND GAIT BELT. LUNGS ARE CLEAR AND DEMINISHED. ABD IS SOFT WITH BSX4. PATIENT HAS S.L. IN HER LEFT FORARM. UP TO THE BATHROOM TO VOID MANSI COLORED URINE. FALL AND SAFTETY PROTOCOLS IN PLACE. DENIES PAIN AT THIS TIME. CONTINUES TO PROGRESS TOWARDS D/C GOALS. WILL CONTINUE TO MONITER.
--- NOTE | 2019-10-28 12:29 | NUR ---
team meeting, recommendation: dc 20th, if daughter can stay night with her initially. [facility] ( pt, ot, st, and nursing), daughter to assist with bills and pills. no driving. must get cleared with primary MD before driving. vendor choice sheet on chart and list hh choice provided, bedside nurse giving to pt and put on chart. no dme.
--- NOTE | 2019-10-28 12:48 | NUR ---
FAXED REFERRAL TO [facility] SPOKE WITH SOO IN INTAKE SHE RECEIVED REFERRAL AND WILL ACCEPT AT IN ANTICIPATE DC 11/02.
--- NOTE | 2019-10-28 13:35 | NUR ---
patient to dc home today with HH care. Patient reports she has home oxygen and no preference for HH care agreeable to [facility] care.
[2019-10-28 19:17] VITALS: BP 113/51
--- NOTE | 2019-10-29 01:09 | NUR ---
PT ALERT AND ORIENTED X 4. AMB TO BR WITH GAIT BELT AND ASSIST X 1 WITHOUT DIFFICULTY. PT TAKES MEDS CRUSHED IN YOGURT WITHOUT DIFFICULTY. PT DID NOT CALL FOR MEDS AT HS, BUT DID ASK RESPIRATORY THERAPIST FOR THEM. BLOOD SUGAR 215 AT HS. INSULIN GIVEN ORDERED. BENADRYL GIVEN AT HS PER PT REQUEST FOR SLEEP. PT DENIES PAIN OR DISCOMFORT. BED ALARM ON FOR SAFETY. PT APPEARS TO BE SLEEPING ON HOURLY ROUNDS.
[2019-10-29 08:00] VITALS: BP 142/65
--- NOTE | 2019-10-29 08:27 | P ---
[facility] [place] [address] PROCEDURE REPORT Name: DORENE FOSTER Room #: 505-P [facility] IN .R.#: [id number] Admission: 10/24/19 Attend Phys: Derek Kim MD Discharge: Date of : 33 Report #: [id number] THIS REPORT FOR: cc: Ciara Clay MD,Ciara Garcia,Maxx Wagoner MD ~ CC: Derek Clay DATE OF SERVICE: 10/27/2019 INPATIENT UPPER ENDOSCOPY REPORT BRIEF HISTORY: The patient is an 84-year-old woman who has a long history of dysphagia with recurrent bolus obstruction in the esophagus. History is notable for previous Alonzo fundoplication. She has been dilated in the past. At this time, she reports that she is on a pureed diet, but she swallowed pills and feels that it has not passed. PREOPERATIVE DIAGNOSIS: Recurrent dysphagia with complaints of non-passage of a pill. POSTOPERATIVE DIAGNOSES: 1. Impaction distal esophagus, pill, dislodged. 2. Esophageal stricture. 3. Diffuse gastritis. 4. Mild Olinda esophagitis. MEDICATIONS: Deep sedation with propofol per anesthesia. SPECIMEN: None. ESTIMATED BLOOD LOSS: Less than 3 mL. PROCEDURES: 1. EGD with removal of foreign body of the distal esophagus. 2. Dilation of the esophagus with guidewire and Savary dilators.. FINDINGS: Prior to propofol sedation, procedure of upper endoscopy and dilation was reviewed with the patient as well as potential risks and its complications. She indicates she understands and desires that we proceed. DESCRIPTION OF PROCEDURE: With the patient in left lateral decubitus position, the Olympus video endoscope was inserted in the cervical esophagus under direct vision without difficulty. Examination of the proximal stomach revealed a few punctate whitish plaques consistent with mild Olinda esophagitis. She is on [facility] ([facility] [place] [address] PROCEDURE REPORT Name: DORENE FOSTER Antonio Room #: 505-P [facility] IN .#: [id number] Admission: 10/24/19 Attend Phys: Derek Kim MD Discharge: Date of : 33 Report #: [id number] steroids and this is a typical pattern. She also has diabetes. Therefore, brushings were not obtained. As the scope was advanced into the distal esophagus, it was noted to be filled with a frothy liquidy material. This was aspirated away. At that point, a pill was seen impacted about the level of the GE junction. Upon manipulation of the tablet with the scope, the tap was disintegrated. We irrigated and pushed the debris into the stomach. The scope did pass easily through the GE junction without significant trauma. Hiatus hernia was not seen. Scope was advanced into the stomach, was examined on end view as well as retroflexed views. There was some dark liquidy material in the stomach. No solids were seen. Upon retroflexion, no mass lesions were seen. There was a vague pattern of swirling from previous Alonzo fundoplication. However, these swirls were not very pronounced. Examination of the distal stomach revealed a diffuse gastritis without ulcers or erosions. Previous biopsies were negative for H. pylori and those were not repeated today. The pylorus was unremarkable. Duodenal bulb was unremarkable. Duodenal sweep was unremarkable. The papilla was seen tangentially and was unremarkable. At that point, a guidewire was advanced through the biopsy channel of the scope and the scope was withdrawn over a guidewire. She was subsequently dilated with 11.8 and 14 mm dilators. After passage of the 14 mm dilator, the scope was reintroduced and there was a superficial mucosal tear just above the squamocolumnar junction. There was essentially no depth to the tear. There was not significant bleeding. It was felt best to stop dilation at this point in time, the scope was withdrawn, the patient tolerated the procedure well. DISPOSITION: The patient with pill obstruction in the esophagus, which was cleared. She should continue her PPI. She has continued her pureed diet. If possible, crushed pills. I would recommend repeating EGD and dilation and hopefully to a higher level in about 2 weeks. The patient should continue to use precautions with swallowing. Also, she does have very mild Olinda esophagitis and will place her on a nystatin orally for 10 days. <ELECTRONICALLY SIGNED> By: Maxx Garcia MD 10/29/19 0827 [id number] [id number] Maxx Garcia MD /nt
--- NOTE | 2019-10-29 12:19 | PLAN ---
[facility] [place] [address] REHAB UNIT PLAN OF CARE Name: DORENE FOSTER Room #: 505-P ADM IN M.R.#: [id number] Admission: 10/24/19 Attend Phys: Derek Kim MD Discharge: Date of : 33 Report #: [id number] THIS REPORT FOR: //name// CC: Derek Clay DATE OF SERVICE: 10/27/2019 PROGRESS NOTE/OVERALL PLAN OF CARE SUBJECTIVE: The patient was seen back today in followup. She is in no distress. Temperature 36.7, pulse 69, respirations 18, blood pressure was 138/74. The patient is alert. HEENT appeared to be benign. Cranial nerves are grossly intact. Facies are symmetric. She is working in therapies. Transfers have been supervision. Gait is 200 feet standby assistance without an assistive device. She started to work on stairs. Occupational therapy, lower body dressing is contact guard. Speech therapy saw her and noted some dysphagia for which she is on a pureed with thin liquids. She has been seen by Gastroenterology and the plan is to go down for an EGD with her prior history of the need for esophageal dilatation. She has had a history of a Alonzo fundoplication. Speech therapy is also to follow regarding cognition, communication. ASSESSMENT: 1. Gait ataxia with instability. 2. Atrial flutter, status post cardioversion. 3. Chronic obstructive pulmonary disease with recent acute exacerbation. 4. Mild acute renal insufficiency noted to be resolving. 5. Coronary artery disease. 6. Diabetes mellitus type 2 with elevated hemoglobin A1c. 7. Hypothyroidism. PLAN: The overall plan of care is based on the preadmission screen, post-admission physician evaluation and information garnered from therapy assessments. 1. Estimated length of stay is probably at least 7-10 days. 2. Medical prognosis is reasonably good. 3. Anticipated interventions includes the interdisciplinary acute inpatient rehabilitation program. 4. Anticipated functional outcomes would be for the patient to become modified independent with transfers, mobility, ADLs as well as improvement with swallowing, overall cognition, so she can return back to the home setting. 5. Discharge destination would be back to the home setting. She does live at home by herself. 6. Suspect the therapy by discipline includes PT, OT and speech 1 hour per day each five days a week throughout [place] [address] REHAB UNIT PLAN OF CARE Name: DORENE FOSTER Room #: 505-P [facility] IN [facility].#: [id number] Admission: 10/24/19 Attend Phys: Derek Kim MD Discharge: Date of : 33 Report #: [id number] rehabilitation program. ADDENDUM: The patient did miss some therapy on 10/25/2019 when breakfast was late and she ended up missing some occupational therapy. <ELECTRONICALLY SIGNED> By: Derek Kim MD 10/29/19 1219 0810 1214 Derek Kim MD /JACKIE
--- NOTE | 2019-10-29 12:19 | H ---
[facility] [place] [address] HISTORY AND PHYSICAL Name: DORENE FOSTER Room #: 505-P ADM IN M.R.#: [id number] Admission: 10/24/19 Attend Phys: Derek Kim MD Discharge: Date of : 33 Report #: [id number] THIS REPORT FOR: cc: Ciara Clay MD,Ciara Kim,Derek Hammonds MD ~ CC: Derek Clay DATE OF SERVICE: 10/24/2019 HISTORY AND PHYSICAL/POSTADMISSION PHYSICIAN EVALUATION HISTORY OF PRESENT ILLNESS: This is an 84-year-old white female who was originally admitted to [facility] on 10/21/2019 with shortness of breath and dizziness. She was seen by Cardiology and Pulmonary. It was felt to have atrial flutter with uncontrolled rates contributing along with underlying COPD. Medication adjustments were made. She had a cardioversion on 10/22/2019. She had a recent acute exacerbation of chronic obstructive pulmonary disease in the end of September and remained on steroids and nebulizers. She has mild acute renal insufficiency and was given gentle hydration. She continues with some weakness and noted to have some gait ataxia and has now been admitted for acute in-hospital inpatient rehabilitation. PAST MEDICAL HISTORY: Includes diabetes mellitus, hypertension and heart disease. PAST SURGICAL HISTORY: Appendectomy, cholecystectomy, hernia repair, hysterectomy, Alonzo fundoplication. FAMILY HISTORY: Heart disease, cancer, diabetes, hypertension, stroke. HABITS: Nonsmoker. No history of alcohol abuse. No history of recreational drug abuse. MEDICATIONS: Please see the full MAR. ALLERGIES: She does have multiple allergies, which are listed. SOCIAL HISTORY: Lives at home alone, house, uses no assistive device, was independent with ADLs and IADLs, still driving. REVIEW OF SYSTEMS: No current complaints of chest pain, shortness of breath or abdominal discomfort. PHYSICAL EXAMINATION: [facility] [address] [place] [address] HISTORY AND PHYSICAL Name: DORENE FOSTER Room #: 505-P [facility] IN ..#: [id number] Admission: 10/24/19 Attend Phys: Derek Kim MD Discharge: Date of : 33 Report #: [id number] GENERAL: The patient was seen earlier today. VITAL SIGNS: Temperature 98.4, pulse 75, respirations 20, blood pressure 128/58. She was in no distress. A little sleepy, but did arouse. CHEST: Decreased diffuse breath sounds. CARDIOVASCULAR: Regular rate and rhythm. ABDOMEN: Bowel sounds positive, nontender. GENITOURINARY AND RECTAL: Deferred. EXTREMITIES: She has functional range of motion of both upper and lower extremities. Strength is probably a grade 4- to 3+/5. Tone appeared to be intact. She has been standby assistance for basic transfers and needing min assist short distance ambulation with some scissor stepping or any ataxia that has been noted when she has been up. ASSESSMENT: An 84-year-old white female with the following problem list: 1. Gait ataxia with instability. 2. Atrial flutter, status post cardioversion. 3. Chronic obstructive pulmonary disease with recent acute exacerbation. 4. Mild acute renal insufficiency noted to be resolving. 5. Coronary artery disease. 6. Diabetes mellitus type 2 with elevated hemoglobin A1c. 7. Hypothyroidism. PLAN: The patient has been admitted for an acute in-hospital inpatient rehabilitation stay. From a postadmission physician evaluation perspective, there are no relevant changes since the preadmission screening. Please see the above review of prior and current medical and functional conditions and comorbidities. Please see the patient's previous and current functional status. As far as risk of complications, the patient has multiple medical comorbidities as noted above. Initial plan of care involves the interdisciplinary acute inpatient rehabilitation program. Measurable functional goals would be for the patient to become modified independent with basic transfers, mobility and ADLs, so she can hopefully return back to her prior living situation. We will have Speech Therapy do a cognitive evaluation as well. Prognosis is reasonably good with estimated length of stay probably at least 1-2 weeks. Potential barriers would include her multiple medical comorbidities and decreased functional status. The patient meets diagnostic criteria for an acute in-hospital inpatient rehabilitation stay. She meets medical necessity criteria. We will have the statistical consultant physicians continue to follow. She does have the tolerance for therapies and has appropriate discharge goals back to the home setting. <ELECTRONICALLY SIGNED> By: Derek Kim MD 10/29/19 1219 1338 [id number] Derek Kim MD /[facility]
--- NOTE | 2019-10-29 16:21 | NUR ---
ASSUMED CARE OF PT AT 0700. PT IS A&OX4 AND VITAL SIGNS ARE STABLE. PT DENIES PAIN AND PARTICIPATED IN SCHEDULED THERAPIES. CALLS APPROPRIATELY FOR MEDICAITONS. ACCU CHECKS ACHS AND MANAGED WITH PO MEDICAITONS AND INSULIN PER ORDERS. AT APPROXIMATELY 1500, PT CALLED NURSING TO ROOM AND REPORTED FEELING LIGHT-HEADED AND ASKED TO HAVE BLOOD GLUCOSE CHECKED. BLOOD GLUCOSE 40 AT THAT TIME, HYPOGLYCEMIA PROTOCOL INITIATED AND 3 GLUCOSE TABS PROVIDED WITH 8OZ OF APPLE JUICE, RECHECK BLOOD GLUCOSE 62. ANOTHER 2 GLUCOSE TABS PROVIDED WITH PEANUT BUTTER, RECHECK BLOOD GLUCOSE 130. ENDOCRINOLOGY NOTIFIED, ORDERS TO HOLD SCHEDULED HUMALOG AT DINNER. NURSING WILL CONTINUE TO MONITOR.
[2019-10-29 21:15] VITALS: BP 127/53
--- NOTE | 2019-10-30 03:02 | NUR ---
CALLS FOR UP TO TOILET WITH SBA AND GAIT BELT. TOLERATING PILLS CRUSHED IN YOGURT, DID NOT SEE NEED FOR SNACK WITH 3 UNITS SS INSULIN SINCE SHE WAS EATING THE YOGURT AND THE BLOOD SUGAR WAS UP TO 189. APPRECIATES NYSTATIN SWISH AND SWALLOW
--- NOTE | 2019-10-30 06:30 | NUR ---
ASKING FOR HER 0700 MEDS AT THIS TIME AND IS AWARE THAT SHE WILL NEED INSULIN AT 0800 PRIOR TO BREAKFAST AND AT 0900.
[2019-10-30 07:35] VITALS: BP 140/74
--- NOTE | 2019-10-30 19:49 | NUR ---
ASSUMED CARE OF PT AT 0700. PT IS A&OX4 AND VITAL SIGNS ARE STABLE. PT REPORTS NECK PAIN, MANGED WITH PO MEDICAITONS. PT PARTICIPATED IN SCHEDULED THERAPIES. AT 1400 PT CALLED STAFF AND REQUESTED A BLOOD GLUCOSE CHECK. BLOOD GLUCOSE 37 WITH RECHECK OF 41. PT PROVIDED 3 TUBES OF GLUCOSE GEL AND 16OZ OF APPLEJUICE WITH PEANUT BUTTER WITH RECHECKS EVERY 20 MINUTES UNTIL BLOOD GLUCOSE >70. MANUFACTURING QUALITY MANAGER NOTIFIED OF EPISODE AND INSTRUCTIONS FOR NURSE TO CALL PRIOR TO ADMINISTRATION OF INSULIN IN AM. FALL PRECAUTIONS IN PLACE AND NURISNG WILL CONTINUE TO MONITOR.
[2019-10-30 20:31] VITALS: BP 120/42
--- NOTE | 2019-10-31 04:18 | NUR ---
UP TO TOILET WITH GAIT BELT AND STANDBY ASSIST. AGAIN NOTES THAT SHE RELIES ON FAMILY TO WATCH OUT FOR HER AND ASSIST HER NEEDED, BUT THEY LET HER DO MUCH FOR HERSELF THEY CAN WHICH SHE APPRECIATES. SHORT DISCUSSION WITH DAUGHTER JESUSITA WHO WANTED TO IDENTIFY WHAT DIABETIC AGENTS SHE IS CURRENTLY ON WITH CONCERN ABOUT HER PATTERN OF HYPOGLYCEMIA AND WHAT SHE WILL END UP GOING HOME ON. INFORMED THAT WE WILL EDUCATE PATIENT MUCH WE CAN ABOUT INSULIN ADMINISTRATION, PATIENT IS A LITTLE OVERWHELMED WITH CHANGES IN MEDS THAT HAVE HAPPENED THE LAST FEW DAYS, BUT IS WRITING DOWN MEDICATION TIMES AND REQUESTED HER 2100 MEDS PLUS A SLEEPING PILL AT 2020 LAST EVENING. WAS SILL AWAKE A LITTLE BEFORE MIDNIGHT WHEN WE TOOK HER BLOOD SUGAR A LITTLE LATER THAN INTENDED, TRAMADOL THEN WAS GIVEN WITH THE HOPE THAT IT WOULD HELP HER SLEEP. ALL MEDS ARE BEING GIVEN CRUSHED IN PEACH YOGURT. HAS BEEN RESTING WELL SINCE 27
[2019-10-31 05:58] LABS: ABSOLUTE NEUTROPHILS 8.5 thou/uL (1.4-8.2); BASOPHILS 0.5 % (0.0-2.0); EOSINOPHILS 2.4 % (0.0-3.0); HEMATOCRIT 34.5 % (37.0-47.0); HEMOGLOBIN 10.9 gm/dL (12.0-15.0); LYMPHOCYTES 19.3 % (24.0-44.0); MCH 26.5 pg (26.0-34.0); MCHC 31.6 g/dL (28.0-37.0); MONOCYTES 9.8 % (1.0-8.0); PLATELET COUNT 168 thou/uL (150-400); RBC 4.11 mil/uL (4.20-5.00); RDW 17.4 % (10.5-14.5); WBC 12.5 thou/uL (4.0-11.0)
[2019-10-31 06:08] LABS: CALCIUM 8.2 mg/dL (8.5-10.1); CREATININE 0.9 mg/dL (0.6-1.0); POTASSIUM 4.4 mmol/L (3.5-5.1)
--- NOTE | 2019-10-31 09:04 | HC ---
[facility] [place] [address] CONSULTATION Name: DORENE FOSTER Room #: 505-P [facility] IN .R.#: [id number] Admission: 10/24/19 Attend Phys: Derek Kim MD Discharge: Date of : 33 Report #: [id number] THIS REPORT FOR: cc: Ciara Clay MD,Aki Castellanos MD, MD ~ CC: Derek Clay DATE OF SERVICE: 10/26/2019 HISTORY OF PRESENT ILLNESS: The patient is an 84-year-old female with recurrent dysphagia. She has undergone previous upper endoscopies with dilations in the past; in fact, she underwent an upper endoscopy by myself for dysphagia in December of last year. At that time, she was noted to have a partial food impaction. This was removed. She did have a small tear in her esophagus that was not dilated at that time, but again she has had dilation of her esophagus in the past for dysphagia. She has been having difficulty with solids primarily. A bedside speech path swallow test yesterday, solids were not attempted due to concerns of a previous history of stricture, no overt signs of aspiration were noted with consistencies that were tested. The recommendations were for a pureed diet with thin liquids. The patient has been on Eliquis, but this appears to have been held for the last several days. She is denying any nausea or vomiting. She denies any odynophagia. No abdominal pain, no chest pain or shortness of breath currently. She does have a previous history of pneumonia. She is currently in rehab at this time. She also has complained of hemorrhoidal pain, especially with bowel movement. Dr. Gates has started a suppository, which has been helpful. She does notice a small amount of bright red blood per rectum with wiping. She denies any fevers or chills or cough at this time. PAST MEDICAL HISTORY: Atrial flutter, cardioversion on 10/22/2019, history of coronary artery disease, malnutrition, hypothyroidism, previous history of Alonzo fundoplication, history of recurrent dysphagia, hypertension, gout, gastroesophageal reflux disease, history of urinary retention, history of COPD, recent pneumonia which is now resolved, mitral insufficiency. REVIEW OF SYSTEMS: As per HPI. ALLERGIES: Multiple. See the chart. SOCIAL HISTORY: She denies any tobacco or alcohol use at this time. FAMILY HISTORY: Negative for colon cancer. PHYSICAL EXAMINATION: [facility] [address] [place] [address] CONSULTATION Name: DORENE FOSTER Room #: 505-P [facility] IN [facility]#: [id number] Admission: 10/24/19 Attend Phys: Derek Kim MD Discharge: Date of : 33 Report #: [id number] VITAL SIGNS: Temperature is 98.2, pulse 80, blood pressure 147/75, respiratory rate is 20. GENERAL: She is alert and oriented x 3, in no acute distress. HEENT: Sclerae nonicteric. Oropharynx clear. NECK: Supple without lymphadenopathy. CARDIOVASCULAR: Regular rate. CHEST: Clear to auscultation anteriorly bilaterally. ABDOMEN: Soft, nontender, nondistended, normoactive bowel sounds. EXTREMITIES: Thin. No cyanosis, clubbing or edema. LABORATORY DATA: Sodium 137, potassium 3.8, chloride 103, bicarbonate 27, BUN 17, creatinine 0.9, glucose 110, total bilirubin 0.7, AST 22, alkaline phosphatase 76, ALT is 113, total protein 6.1, albumin 3.0. WBC 17.0, hemoglobin 12.5, platelet count is 216. ASSESSMENT AND PLAN: 1. Dysphagia. We would recommend proceeding with an upper endoscopy with dilation tomorrow. The patient has been off of Eliquis apparently for the last 2 days. Speech path is following. She is on a thin liquid and pureed diet and tolerating this well at this time. Hopefully, dilation will be helpful. The patient agrees with the plan. We will make the patient n.p.o. after midnight. 1. Hemorrhoids with a small amount of bright red blood per rectum. I agree with cortisone suppository, which has been started. She does report some improvement. If this continues, consider adding Analpram at that time. Thank you for allowing me to participate in her care. <ELECTRONICALLY SIGNED> By: Aki Álvraez MD 10/31/19 0904 1234 1259 Aki Álvarez MD /nt
[2019-10-31 19:05] VITALS: BP 134/43
--- NOTE | 2019-10-31 19:51 | NUR ---
ASSUMED CARE OF PT AT 0700. PT IS A&OX4 AND VITAL SIGNS ARE STABLE. PT REPORTS BACK PAIN, MANAGED WITH PO MEDICAIOTNS, PT PARTICIPATED IN SCHEDULED THERAPIES. ACCU CHECKS ACHS, LANTUS HELD IN AM PER PROVIDERS ORDERS. PROVIDER ON UNIT ORDERED 12 UNITS OF LANTUS, ADMINISTERED TO PT. PT REPORTED FEELING "LOW" AT APPROXIMATELY 1500 AND 1900, CHECKED GLUCOSE LEVEL AT THOSE TIMES, LEVEL >90. PT CALLS APPROPRIATLEY FOR MEDICATIONS. FALL PRECAUTIONS IN PLACE AND NURSING WILL CONTINUE TO MONITOR.
--- NOTE | 2019-11-01 05:07 | NUR ---
ASSUMED PT CARE AROUND 1900. AXOX4. SKOK[place]ISH. VSS. NO S/S ACUTE DISTRESS NOTED OR REPORTED AT THIS TIME. WILL CONT TO MONITOR FOR ANY CHANGES IN CONDITION.
[2019-11-01 07:25] VITALS: BP 123/48
--- NOTE | 2019-11-01 13:40 | NUR ---
ASSUMED CARES AT 0700. PT AWAKE, ORIENTED*4 BUT FORGETFUL. EKWOK. VITALS REMAIN STABLE. C/O BACK PAIN, PAIN MEDICATION ADMINISTERED NEEDED AND AREA ICED. HOSPITALIST NOTIFIED AND PAIN MEDICATION ADJUSTED. PT UP WITH 1 SBA, GB AND WALKER AND TOLERATED WELL. Q1H VISUAL CHECKS. CALL LIGHT WITHIN REACH. FALL PRECATIONS IN PLACE
[2019-11-01 16:14] VITALS: BP 110/46
[2019-11-01 19:32] VITALS: BP 122/44
--- NOTE | 2019-11-01 19:58 | NUR ---
ASSUMED CARE OF PT AT 1915. PT IS A&OX4. IS ON ROOM AIR. IS STABLE. REPORTS LOW BACK PAIN THAT IS BEING MANAGED WITH MEDS & OTHER THERAPUETIC TECHNIQUES. IS UP WITH 1 ASSIST, GB. MAY BENEFIT FROM WALKER. FALL PRECAUTIONS & HOURLY ROUNDING CONTINUED THIS SHIFT. LABS & VITALS REVIEWED. PT IS CURRENTLY IN BED WATCHING TV. CALL LIGHT WITHIN REACH. WILL CONTINUE TO MONITOR.
[2019-11-02 07:28] VITALS: BP 96/59
--- NOTE | 2019-11-02 16:42 | NUR ---
ASSUMED CARE AT 0700, PT A&O X 4, NO ACUTE DISTRESS DURING SHIFT. VSS, O2 ON RA. PT DENIES ANY PAIN OR DISCOMFORT. MEDS TOLERATES MEDS CRUSHED IN PUDDING, SARAH MIRALAX GIVES AND PRN MOM FOR CONSTIPATION. BG ACHS, SS NEEDED. CONTINENT OF B&B, BM TODAY. BED IN LOWEST POSITION, CALL LIGHT WITHIN REACH, WILL CONTINUE TO MONITOR PER POC.
[2019-11-02 19:44] VITALS: BP 147/52
[2019-11-02 19:46] VITALS: BP 146/72
--- NOTE | 2019-11-03 01:57 | NUR ---
ASSUMED CARE AT APPROX 1900 EVENING 11/01. PT ALERT AND ORIENTED X4 SITTING UP IN BED AT CHANGE OF SHIFT RESTING AND WATCHING TV. PT PLEASANT AND COOPERATIVE. PT CALLED OUT FOR HS MEDS AND INSULIN. PT TOOK MEDS CRUSHED IN APPLESAUCE TOLERATING WELL. PT UP TO BATHROOM WITH STANDBY ASSIST. PT APPEARS TO BE SLEEPING SOUNDLY WITH HOURLY ROUNDING CHECKS. BED ALARM ON AND CALL LIGHT IN REACH. WILL CONTINUE TO MONITOR.
[2019-11-03 08:00] VITALS: BP 148/64
[2019-11-03 09:58] VITALS: BP 148/64
--- NOTE | 2019-11-03 10:07 | NUR ---
antwan notified by that pt dc on hold for training with insulin, plan to dc tomorrow. antwan called spoke with daughter sukhjinder [phone] via phone call, checking in on dcp and to see if she had any question rt dc. "yes i understand she will be using a lantus pen and that will be only shot she gets. i tried calling cm back and nurses last week and did not ever reach anybody."/sukhjinder. antwan apologized that i never go a message. " thank you for calling today, would like [facility] to call me to set up home health times, so we can be with mom."/sukhjinder. education on bills and pills. my brother her son does the finances and i already set up her medications"/sukhjinder. antwan passed on she will need follow with GI for edg with dilation " ok i needed to know that"/daughter sukhjinder. will cont following as needed for dc needs.
--- NOTE | 2019-11-03 18:53 | NUR ---
ASSUMED CARE AT 0700, PT A&O X 4 , NO ACUTE DISTRESS DURING SHIFT. VSS O2 ON RA. PT C/O BACK PAIN RELIEVED WITH PRN TRAMADOL. TOLERATED MEDS CRUSHED IN PUDDING. CONTINENT OF B&B, LAST BM 11/02/19 AND ON SARAH MIRALAX. PARTICIPATED IN SARAH THERAPIES. PLANS FOR D/C TOMORROW, DAUGHTERS TO DO TRAINING ON LANTUS PEN ADMINISTRATION AT 1PM BEFORE D/C. RESTING IN BED, CALL LIGHT WITHIN REACH, WILL CONTINUE TO MONITOR PER POC.
[2019-11-03 19:37] VITALS: BP 120/64
--- NOTE | 2019-11-04 00:31 | NUR ---
PT ASSESSMENT COMPLETED AND VSS. MEDS GIVEN ORDERED AND WELL TOLERATED. FALL PRECAUTIONS IN PLACE. UP TO THE BATHROOM WITH ASST/GAIT. STEADY. INSULIN GIVEN ORDERED WITH SNACK. SLEEPING WELL. DENIES NEEDS. WILL CONTINUE TO MONITOR FREQUENTLY.
[2019-11-04 07:30] VITALS: BP 121/57
--- NOTE | 2019-11-04 10:59 | NUR ---
pt dc home today, daughter sukhjinder will be here around 1300 for insulin education from bedside nurse. tatyana hernandez h[facility]. daughter to transport pt home.
[2019-11-04] MEDS ORDERED: PACERONE 200 M200 M1 PO ×2 (11:12)
[2019-11-04] MEDS ORDERED: VITAMIN D310 MC1 PO (11:12)
[2019-11-04] MEDS ORDERED: PROTONIX40 M2 PO (11:12)
[2019-11-04] MEDS ORDERED: MAGOX 400400 MG PO (11:12)
--- NOTE | 2019-11-04 12:00 | NUR ---
ASSUMED CARE AT 0700, PT A&O X 4 , VSS O2 ON RA. DENIES PAIN, SOB. OFFERED SUPPORTIVE CARE, REASSESSMENT PER CHART. BS MONITOR, INSULIN GIVEN ORDERED. FAMILY WILL COME FOR TRAINNING INSULIN ADMINISTRATION. PT TOLERATED MEDS CRUSHED IN PUDDING. CONTINENT OF B&B, LAST BM YESTERDAY AND ON SARAH MIRALAX. RESTING IN BED, CALL LIGHT WITHIN REACH, WILL CONTINUE TO MONITOR PER POC.
--- NOTE | 2019-11-04 12:32 | NUR ---
PT DISCHARGING TODAY TO HOME WITH [facility] FAXED DC ORDERS/SUMMARY SPOKE WITH SOO IN ADM SHE RECEIVED ORDERS AND WILL NOTIFY PT'S DTR (JESUSITA) TIME OF VISITS.
[2019-11-04 15:02] VITALS: BP 148/64
== END 2019-11-04 15:14 | disposition home health service (06) | DRG 91 ==
PROVIDERS: Internal Medicine; Nurse Practitioner; Nurse Practitioner Family; ADMIT Physical Medicine & Rehabilitation
PROC: 0DC38ZZ Extirpation of Matter from Lower Esophagus, Via Natural or Artificial Opening Endoscopic (ICD-10-PCS; principal; 2019-10-27)
PROC: 0D758ZZ Dilation of Esophagus, Via Natural or Artificial Opening Endoscopic (ICD-10-PCS; principal; 2019-10-27)
DX: R26.0 Ataxic gait (principal); E43 Unspecified severe protein-calorie malnutrition; I48.92 Unspecified atrial flutter; B37.81 Candidal esophagitis; K56.49 Other impaction of intestine; J44.1 Chronic obstructive pulmonary disease with (acute) exacerbation; Z68.1 Body mass index [BMI] 19.9 or less, adult; E11.65 Type 2 diabetes mellitus with hyperglycemia; I25.10 Atherosclerotic heart disease of native coronary artery without angina pectoris; E03.9 Hypothyroidism, unspecified; I08.1 Rheumatic disorders of both mitral and tricuspid valves; I10 Essential (primary) hypertension; M10.9 Gout, unspecified; K21.9 Gastro-esophageal reflux disease without esophagitis; M19.90 Unspecified osteoarthritis, unspecified site; Z66 Do not resuscitate; I48.91 Unspecified atrial fibrillation; R13.10 Dysphagia, unspecified; K64.9 Unspecified hemorrhoids; N28.9 Disorder of kidney and ureter, unspecified; Z60.2 Problems related to living alone; K22.2 Esophageal obstruction; K22.8 Other specified diseases of esophagus; R33.9 Retention of urine, unspecified; D72.829 Elevated white blood cell count, unspecified; Z90.49 Acquired absence of other specified parts of digestive tract; Z82.49 Family history of ischemic heart disease and other diseases of the circulatory system; Z79.01 Long term (current) use of anticoagulants; Z83.3 Family history of diabetes mellitus; Z82.3 Family history of stroke; Z88.6 Allergy status to analgesic agent; Z88.1 Allergy status to other antibiotic agents; Z88.0 Allergy status to penicillin; Z88.2 Allergy status to sulfonamides; Z88.8 Allergy status to other drugs, medicaments and biological substances; Z90.710 Acquired absence of both cervix and uterus; Z81.1 Family history of alcohol abuse and dependence; Z79.899 Other long term (current) drug therapy
CPT/HCPCS: 10112

== ENCOUNTER 2019-11-16 11:19 | Inpatient (IN) | payer OTHER, MEDICARE ==
[~2019-11-16] VITALS: Ht 165.1 cm; Wt 45.4 kg
[~2019-11-16 11:19] MED LIST changes: +MAGOX 400400 MG PO; +VITAMIN D310 MC1 PO
[2019-11-16 11:30] VITALS: BP 115/45
[2019-11-16 12:13] LABS: ABSOLUTE NEUTROPHILS 3.5 thou/uL (1.4-8.2); BASOPHILS 1.2 % (0.0-2.0); HEMATOCRIT 35.2 % (37.0-47.0); HEMOGLOBIN 11.6 gm/dL (12.0-15.0); LYMPHOCYTES 26.5 % (24.0-44.0); MCH 27.2 pg (26.0-34.0); MCHC 32.9 g/dL (28.0-37.0); MCV 82.6 fL (80.0-100.0); PLATELET COUNT 448 thou/uL (150-400); POLYS 57.3 % (36.0-66.0); RBC 4.26 mil/uL (4.20-5.00); RDW 18.7 % (10.5-14.5); WBC 6.1 thou/uL (4.0-11.0)
[2019-11-16 12:55] LABS: CALCIUM 8.2 mg/dL (8.5-10.1); CREATININE 1.3 mg/dL (0.6-1.0); POTASSIUM 4.4 mmol/L (3.5-5.1)
[2019-11-16 12:59] LABS: POIKILOCYTOSIS 3+
[2019-11-16 13:00] LABS: ANISOCYTOSIS 2+; SCHISTOCYTES 1+; TARGET CELLS 2+
[2019-11-16 13:05] LABS: ALBUMIN 2.4 g/dL (3.4-5.0); TOTAL BILIRUBIN 0.5 mg/dL (<0.1-1.0); TOTAL PROTEIN 5.6 g/dL (6.4-8.2); TROPONIN-I 0.06 ng/mL (<0.06)
[2019-11-16 14:41] VITALS: BP 100/82
[2019-11-16 14:46] VITALS: BP 100/82
[2019-11-16 15:15] VITALS: BP 92/46
--- NOTE | 2019-11-16 16:17 | NUR ---
PT ORIENTED TO ROOM AND UNIT, BED LOW AND LOCKED WITH ALARM ON. TELE APPLIED, CALL LIGHT IN REACH. WILL CONTINUE TO ASSESS.
[2019-11-16 21:00] VITALS: BP 119/56
--- NOTE | 2019-11-16 22:18 | NUR ---
PATIENT ALERT AND ORIENTED X4. VERY [place]. COOPERATIVE WITH CARE. REQUESTED AND GIVEN ONETIME ORDER FOR BENEDRYL TO ASSIST WITH SLEEP. RESTING AT TIME OF NOTE. BS MONITORED PER ORDER. IVF INFUSING W/O COMPLICATION. WILL MONITOR.
[2019-11-17 03:39] VITALS: BP 119/57
--- NOTE | 2019-11-17 03:40 | NUR ---
PATIENT HAS NOT VOIDED SINCE SHIFT CHANGE. BLADDER SCANNED AT 0330 WITH RESULT OF 139. PATIENT STATED THAT SHE DID NOT HAVE THE URGE TO URINATE. THIS NURSE HAS PLACED A HAT AND SPECIMEN CUP IN THE BATHROOM FOR A SPECIMEN TO BE SENT TO LAB. PATIENTS HEART RATE RUNS FROM APPROX. 43-49, HOWEVER, HER VITALS ARE FINE WITH AN ADEQUATE BLOOD PRESSURE AND SHE IS NOT LETHARGIC AND AWAKENS EASILY WITH TOUCH. WILL MONITOR.
[2019-11-17 06:18] LABS: ABSOLUTE NEUTROPHILS 2.7 thou/uL (1.4-8.2); BASOPHILS 1.4 % (0.0-2.0); EOSINOPHILS 3.5 % (0.0-3.0); HEMATOCRIT 33.4 % (37.0-47.0); HEMOGLOBIN 10.9 gm/dL (12.0-15.0); LYMPHOCYTES 38.3 % (24.0-44.0); MCH 27.4 pg (26.0-34.0); MCHC 32.8 g/dL (28.0-37.0); MCV 83.7 fL (80.0-100.0); MONOCYTES 11.9 % (1.0-8.0); PLATELET COUNT 418 thou/uL (150-400); POLYS 44.9 % (36.0-66.0); RBC 3.99 mil/uL (4.20-5.00); RDW 18.6 % (10.5-14.5)
[2019-11-17 06:31] LABS: ALBUMIN 2.1 g/dL (3.4-5.0); CALCIUM 6.8 mg/dL (8.5-10.1); MAGNESIUM 1.5 mg/dL (1.8-2.4); PHOSPHORUS 3.5 mg/dL (2.5-4.9); TOTAL BILIRUBIN 0.3 mg/dL (<0.1-1.0)
[2019-11-17 06:36] LABS: POTASSIUM 3.4 mmol/L (3.5-5.1)
--- NOTE | 2019-11-17 06:46 | NUR ---
THIS NURSE COLLECTED URINE SPECIMEN AND TOOK TO LAB THIS AM. LIGHT MANSI URINE.
[2019-11-17 07:51] LABS: URINE BILIRUBIN NEGATIVE (Negative); URINE BLOOD NEGATIVE (Negative); URINE CLARITY CLEAR; URINE COLOR YELLOW; URINE GLUCOSE-RANDOM* 2+ (Negative); URINE KETONES NEGATIVE (Negative); URINE LEUKOCYTES-REFLEX NEGATIVE (Negative); URINE NITRITE-REFLEX NEGATIVE (Negative); URINE PROTEIN (DIPSTICK) NEGATIVE (Negative); URINE SPECIFIC GRAVITY >= 1.030 (1.005-1.035); URINE UROBILINOGEN 0.2 E.U./dl (0.2-1.0)
[2019-11-17 08:20] VITALS: BP 138/63
--- NOTE | 2019-11-17 09:00 | EKG ---
[facility] [place] [address] ELECTROCARDIOGRAM REPORT Name: DORENE FOSTER Room #: 361- ADM IN M.R.#: [id number] Admission: 11/16/19 Attend Phys: George Gates MD Discharge: Date of : 31 Report #: [id number] THIS REPORT FOR: cc: Ciara Clay MD, Sequita MD Couchonnal,Wilfrido Lambert MD ~ THIS REPORT FOR: //name// [facility] ED Test Date: 2019-11-16 Test Time: 11:30:58 Pat Name: DORENE FOSTER Department: Room: [facility] Gender: F Humid System Operator: : 1935 Requested By: Rosa Talbot Order Number: [id number] MD: Wilfrido Beck Measurements Intervals [place] Rate: 59 P: 0 CA: 71 QRS: -18 QRSD: 83 T: 194 QT: 428 QTc: 424 Interpretive Statements Junctional rhythm. Compared to ECG 10/23/2019 07:18:08 Electronically Signed On 11-17-2019 8:58:25 CDT by Wilfrido Beck [email or web address] <ELECTRONICALLY SIGNED> By: Wilfrido Beck MD 11/17/19 0858 1130 1130 Wilfrido Beck MD /EPI
--- NOTE | 2019-11-17 09:02 | EKG ---
[facility] [place] [address] ELECTROCARDIOGRAM REPORT Name: DORENE FOSTER Room #: 361- ADM IN M.R.#: [id number] Admission: 11/16/19 Attend Phys: George Gates MD Discharge: Date of : 33 Report #: [id number] THIS REPORT FOR: cc: Ciara Clay MD, Sequita MD Couchonnal,Wilfrido Lambert MD ~ THIS REPORT FOR: //name// [facility] Test Date: 2019-11-17 Test Time: 08:22:35 Pat Name: DORENE FOSTER Department: Room: 361 Gender: F Press Feeder Broomcorn: LOUIE : 1935 Requested By: Karley Gonzalez Order Number: [id number] MD: Wilfrido Beck Measurements Intervals [place] Rate: 55 P: AR: QRS: 39 QRSD: 88 T: 214 QT: 447 QTc: 428 Interpretive Statements Junctional rhythm Anteroseptal infarct, old Borderline repolarization abnormality Compared to ECG 10/23/2019 07:18:08 Electronically Signed On 11-17-2019 9:00:38 CDT by Wilfrido Beck [email or web address] <ELECTRONICALLY SIGNED> By: Wilfrido Beck MD 11/17/1900 1 1 Wilfrido Beck MD /EPI
--- NOTE | 2019-11-17 11:01 | NUR ---
Patient can be removed from enhanced precautions.
[2019-11-17 12:26] VITALS: BP 113/60
--- NOTE | 2019-11-17 13:55 | NUR ---
INITIAL ASSESSMENT: Received consult. MEHDI reviewed chart and spoke with nursing and attending physician. Pt was admitted from home due to to shortness of air. Pt is in Enhanced Isolation to r/o COVID-19. Pt's test is negative. Pt was recently discharged home from with [facility] on 10/30. MEHDI spoke with pt via phone. Introduced role of SW. Pt able to answer questions via phone. Pt states she lives at home alone. Pt reports that HH is still coming out to see her and she would like to return home. Her children are supportive and involved in her care. Pt's PCP is Dr. Ciara Clay. MEHDI spoke with pt's dtr via phone to provide update. Pt normally uses a cane at home. 2 steps to enter the house in the front. No steps inside. Awaiting therapy evaluations at this time. MEHDI is following to assist as needed with discharge planning.
--- NOTE | 2019-11-17 14:35 | NUR ---
No further Covid testing indicated. DC enhanced precautions.
[2019-11-17 16:40] VITALS: BP 134/65
--- NOTE | 2019-11-17 17:23 | NUR ---
PT IS A&OX3, BUT PT IS FORGETFUL, PT'S VS ARE STABLE , PT GETS UP TO BATHROOM WITH ASSIST, PT DOES NOT HAVE SOB AND FEVER BY THIS TIME, BUT PT'S HR IS RUNNING BRADYCARDIA 48-59 AT TIME, CARDOLOGY DR HAS HOLD SOME MEDICATIONS, IF PT IS CONTINUING BRADYCARDIA SYRDROME , PT WILL PROCEED PACEMAKER TOMORROW, PT IS GOING TO NPO AFTER [place], RN HAS NOTIFIED PT'S DAUGHTER . RN WILL REPORT TO NEXT SHIFT .
[2019-11-17 21:00] VITALS: BP 133/61
[2019-11-18 00:05] VITALS: BP 122/60
[2019-11-18 04:45] VITALS: BP 109/49
[2019-11-18 06:00] LABS: CALCIUM 7.6 mg/dL (8.5-10.1); CREATININE 0.9 mg/dL (0.6-1.0); POTASSIUM 4.1 mmol/L (3.5-5.1)
[2019-11-18 08:00] VITALS: BP 129/68
--- NOTE | 2019-11-18 10:53 | NUR ---
08:00 PT. AWAKE AND CONVERSING WITH MD IN REGARDS TO HER UPCOMING PROCEDURE. THE PLAN IS FOR MEDICAL MAANGEMENT FIRST IN THE NEXT FEW DAYS IF NOT WILL PROCEED WITH A PACEMAKER BY SUNDAY. DENIES ANY SHORTNESS OF BREATH, NOR ANY CHEST PAIN AT THIS TIME. NO EDEMA OBSERVED. IV SITE IS C,D, I AND HEP LOCKED AT PRESENT.
--- NOTE | 2019-11-18 10:56 | NUR ---
AMBULATED PT. TO RESTROOM, DENIES ANY FELINGS OF DIZZINESS AT THIS TIME. VOIDED WITH NO DIFFICULTY AND RETURNED TO BED. DENIES ANY CHEST PAINA T PRESENT.
--- NOTE | 2019-11-18 12:57 | EKG ---
[facility] [place] [address] ELECTROCARDIOGRAM REPORT Name: DORENE FOSTER Room #: 213-P ADM IN M.R.#: [id number] Admission: 11/16/19 Attend Phys: Ayse Gates MD Discharge: Date of : 31 Report #: [id number] THIS REPORT FOR: cc: Ciara Clay MD,Ciara Farias,Shawn Dixon MD [facility] ~ THIS REPORT FOR: //name// [facility] Test Date: 2019-11-18 Test Time: 08:10:45 Pat Name: DORENE FOSTER Department: Room: [facility] Gender: F Brass Chaser: HUGO : 1935 Requested By: Shawn Farias Order Number: [id number] MD: Shawn Farias Measurements Intervals [place] Rate: 53 P: FL: QRS: -18 QRSD: 84 T: 134 QT: 436 QTc: 410 Interpretive Statements Junctional bradycardia Nonspecific ST and T wave abnormality Anteroseptal infarct, old Compared to ECG 11/17/2019 08:22:35 No significant changes Electronically Signed On 11-18-2019 12:55:18 CDT by Shawn Farias [email or web address] <ELECTRONICALLY SIGNED> By: Shawn Farias MD, [facility] 11/18/19 1255 0810 0810 Shawn Farias MD, [facility] /EPI
[2019-11-18 13:00] VITALS: BP 117/53
--- NOTE | 2019-11-18 13:15 | NUR ---
PT IS AN ACCUCHECK, PACE ANALYST INFORMED AND BG TAKEN
--- NOTE | 2019-11-18 13:53 | NUR ---
FAXED CLINICAL UPDATE TO [facility] SPOKE WITH SOO IN INTAKE SHE RECEIVED UPDATE. DP TO FOLLOW.
[2019-11-18 17:35] VITALS: BP 128/38
[2019-11-18 20:24] VITALS: BP 118/56
[2019-11-19] VITALS (10 sets, daily range): BP systolic 122–147; BP diastolic 48–90
--- NOTE | 2019-11-19 04:30 | NUR ---
Pt. rested quietly at intervals during the night when checked on during frequent rounds. She c/o not being able to sleep. Medication intervention given for insomnia (see emar) with some relief noted. No c/o pain. Up to the bathroom with stand by assistance. Bed alarm is on.
[2019-11-19 08:28] LABS: HEMATOCRIT 33.8 % (37.0-47.0); HEMOGLOBIN 10.9 gm/dL (12.0-15.0); MCH 27.1 pg (26.0-34.0); MCHC 32.2 g/dL (28.0-37.0); MCV 84.1 fL (80.0-100.0); RBC 4.02 mil/uL (4.20-5.00); RDW 19.4 % (10.5-14.5); WBC 6.7 thou/uL (4.0-11.0)
[2019-11-19 08:47] LABS: CALCIUM 8.2 mg/dL (8.5-10.1); CREATININE 1.1 mg/dL (0.6-1.0); POTASSIUM 5.3 mmol/L (3.5-5.1)
--- NOTE | 2019-11-19 13:24 | NUR ---
patient to have pacemaker and then work with therapy to assess dc needs.
--- NOTE | 2019-11-19 17:44 | NUR ---
RECEIVED PT'S CARE AROUND 0735; PT. ON BED; AOX4; DURING AM ASSESSMENT NO C/O PAIN; REMAINED ABOUT NPO; ST. UNDERSTANDING; GONE FOR THE PROCEDURE AROUND 1030; RETURNED AFTER 1300; NO C/O PAIN; REFUSED LUNCH; EDUCATED ABOUT NOT PULLING OR PUSHING; ST. UNDERSTANDING; CALLING BEFORE GETTIN OUT OF BED; MANTAIN HEAD OF THE BED ELEVATED; ST. UNDERSTANDING; APACED AFTER PACE MAKER PLACEMENT; C/O PAIN DURING THE AFTERNOON; SCHEDULED PAIN MEDICATION GIVEN LATE; PAIN RE-ASSESSMENT; DECREASE PAIN; ENCOURAGE TO EAT DINNER; HAD 50% OF MEAL; ASSESSMENT CHARGED; FOLLOWING POC; WILL PASS ON REPORT;
[2019-11-20] VITALS: BP 123/59
[2019-11-20 01:52] VITALS: BP 123/59
[2019-11-20 04:00] VITALS: BP 135/58
--- NOTE | 2019-11-20 04:10 | NUR ---
ASSUMED PT CARE AT THE CHANGE OF SHIFT, PT IS AWAKE, ALERT AND ORIENTEDX4, MAKES NEEDS KNOWN, PT REQUESTED PAIN MEDICATION BE GIVEN EARLY WITH NIGHT MEDICATIONS, C/O PAIN ON THE LEFT CHEST, PARTIAL RELIEF AFTER PAIN MEDICATION, CALLS APPROPRIATELY FOR BATHROOM ASSISTANCE, VITAL SIGNS STABLE, IMMOBILIZER IN PLACE, APACED ON THE MONITOR, ASSESSMENTS CHARTED, SLEEPING, NO DISTRESS NOTED, WILL CONTINUE TO MONITOR
[2019-11-20 05:00] VITALS: BP 135/58
[2019-11-20 05:38] LABS: HEMATOCRIT 29.5 % (37.0-47.0); HEMOGLOBIN 9.5 gm/dL (12.0-15.0); MCH 26.9 pg (26.0-34.0); MCHC 32.1 g/dL (28.0-37.0); MCV 83.5 fL (80.0-100.0); RBC 3.53 mil/uL (4.20-5.00); RDW 18.6 % (10.5-14.5); WBC 6.1 thou/uL (4.0-11.0)
[2019-11-20 05:53] LABS: CALCIUM 8.2 mg/dL (8.5-10.1); POTASSIUM 4.9 mmol/L (3.5-5.1)
--- NOTE | 2019-11-20 07:50 | EKG ---
[facility] [place] [address] ELECTROCARDIOGRAM REPORT Name: DORENE FOSTER Room #: 213-P ADM IN M.R.#: [id number] Admission: 11/16/19 Attend Phys: Ayse Gates MD Discharge: Date of : 33 Report #: [id number] THIS REPORT FOR: cc: Ciara Clay MD,Ciara Farias,Shawn Dixon MD [facility] ~ THIS REPORT FOR: //name// [facility] Test Date: 2019-11-19 Test Time: 08:22:01 Pat Name: DORENE FOSTER Department: Room: 213 Gender: F Career Counselor: HUGO : 1935 Requested By: Wilfrido Beck Order Number: [id number] MD: Shawn Farias Measurements Intervals [place] Rate: 52 P: [place]: QRS: -18 QRSD: 84 T: 135 QT: 465 QTc: 433 Interpretive Statements Junctional bradycardia Borderline left axis deviation Poor R wave progression Borderline repolarization abnormality Compared to ECG 11/18/2019 08:10:45 No significant change was found Electronically Signed On 11-20-2019 7:48:49 CDT by Shawn Farias [email or web address] <ELECTRONICALLY SIGNED> By: Shawn Farias MD, [facility] 11/20/19 0748 0822 1 Shawn Farias MD, [facility] /EPI
[2019-11-20 08:00] VITALS: BP 126/59
[2019-11-20 08:52] VITALS: BP 126/59
[2019-11-20] MEDS ORDERED: CARDIZEM CD120 MG PO (09:43)
--- NOTE | 2019-11-20 13:43 | NUR ---
DC planning options discussed with pt/dtrs. They do not feel pt is safe to return home alone with HH and her dtrs are both working during the daytime. 5N eval requested;however the pt was there in October and will not meet criteria for another acute rehab stay. SNF and hh/private duty discussed. Pt's dtr Maria E called back and confirmed they are in agreement for SNF stay at [facility]. CV contacted and the dc senior materials planner faxed the referral. They have responded back and can accept her this afternoon. They will arranged for a w/c van at 3pm and call Maria E to confirm what belongings to bring. Nursing has updated the pt at bedside and both dtrs have talked with the pt. The attending was notified of the plan for SNF and he is agreeable. Dc senior materials planner to fax final orders and chart copy is in progress. Nursing to call report.
--- NOTE | 2019-11-20 14:55 | NUR ---
RECEIVED PT'S CARE AROUND 0720; PT. ON BED; AOX4L DURING AM ASSESSMENT NO C/O PAIN; AM MEDICATIONS GIVEN; EDUCATED ABOUT NEW MEDICATION; [facility]; GONE FOR X-RAY; OK WITH NOBLE SY TO REMOVE IMMOBILIZER; TELEPHONE CLERK NOTIFIED ABOUT DAUGHTER REQUESTING TO BE CALLED BY THEM; [facility]; PT/OT WORKED WITH PT.; DAUGHTER JESUSITA NOTIFIED ABOUT PT'S DESIRE TO GO HOME & NOT SNIF; DAUGHTER STHolly GARCIA; SR ON THE MONITOR; PACING FROM TIME TO TIME; D/C TO SNIF; CALLED FOR REPORT; C/O PAIN; SCHEDULED MEDICATION GIVEN; INCISION C/D/I; ASSESSMENT CHARGED; FOLLOWED POC; PASSED ON REPORT;
== END 2019-11-20 15:27 | DRG 242 ==
LOC: ER 11:19 → 3W 13:25 → 2N 13:25 → EROBS 13:25 → 3W 15:25 → 2N 11-18 00:05
PROVIDERS: Hospitalist; Internal Medicine; Student in an Organized Health Care Education/Training Program; ADMIT Internal Medicine
DX: I49.5 Sick sinus syndrome (principal); E43 Unspecified severe protein-calorie malnutrition; N17.9 Acute kidney failure, unspecified; I48.92 Unspecified atrial flutter; Z68.1 Body mass index [BMI] 19.9 or less, adult; I48.91 Unspecified atrial fibrillation; E11.9 Type 2 diabetes mellitus without complications; J44.9 Chronic obstructive pulmonary disease, unspecified; E03.9 Hypothyroidism, unspecified; K21.9 Gastro-esophageal reflux disease without esophagitis; F32.9 Major depressive disorder, single episode, unspecified; G89.29 Other chronic pain; M54.9 Dorsalgia, unspecified; M10.9 Gout, unspecified; E86.0 Dehydration; R62.7 Adult failure to thrive; I25.10 Atherosclerotic heart disease of native coronary artery without angina pectoris; Z60.2 Problems related to living alone; I34.0 Nonrheumatic mitral (valve) insufficiency; F41.9 Anxiety disorder, unspecified; Z20.828 Contact with and (suspected) exposure to other viral communicable diseases; Z95.5 Presence of coronary angioplasty implant and graft; I25.2 Old myocardial infarction; Z90.710 Acquired absence of both cervix and uterus; Z90.49 Acquired absence of other specified parts of digestive tract; Z88.6 Allergy status to analgesic agent; Z88.1 Allergy status to other antibiotic agents; Z88.0 Allergy status to penicillin; Z88.2 Allergy status to sulfonamides; Z88.8 Allergy status to other drugs, medicaments and biological substances; Z82.49 Family history of ischemic heart disease and other diseases of the circulatory system; Z83.3 Family history of diabetes mellitus; Z82.3 Family history of stroke; Z81.1 Family history of alcohol abuse and dependence
CPT/HCPCS: 10081; 10879; 62110; 62900; 70005

== ENCOUNTER → 2019-11-25 | Outpatient (CLI) | payer OTHER, MEDICARE | LOC: SJCVC 13:01 | DX: I48.0 Paroxysmal atrial fibrillation (principal); I49.5 Sick sinus syndrome; Z95.0 Presence of cardiac pacemaker ==

== ENCOUNTER → 2020-03-04 | Outpatient (CLI) | payer OTHER, MEDICARE | LOC: SJCVC 13:09 | PROVIDERS: ATTEND Internal Medicine Cardiovascular Disease | DX: R94.31 Abnormal electrocardiogram [ECG] [EKG] (principal); I48.19 Other persistent atrial fibrillation; I49.5 Sick sinus syndrome; Z95.0 Presence of cardiac pacemaker ==

== ENCOUNTER 2020-06-10 15:25 | Inpatient (IN) | payer OTHER, MEDICARE ==
[~2020-06-10] VITALS: Ht 165.1 cm; Wt 42.5 kg
[2020-06-10 15:29] VITALS: BP 145/80
[2020-06-10] MEDS ORDERED: LIPITOR40 MG PO (15:35)
[2020-06-10] MEDS ORDERED: ELIQUIS2.5 MG PO (15:35)
[2020-06-10] MEDS ORDERED: POTASSIUM CHLO20 ME2 PO (15:35)
[2020-06-10] MEDS ORDERED: TRADJENTA5 MG (15:36)
[2020-06-10] MEDS ORDERED: BENADRYL25 MG PO (15:36)
[2020-06-10] MEDS ORDERED: PRANDIN1 MG PO (15:36)
[2020-06-10] MEDS ORDERED: PRILOSEC OTC20 MG PO (15:36)
[2020-06-10 16:24] LABS: HEMATOCRIT 35.9 % (37.0-47.0); HEMOGLOBIN 11.3 gm/dL (12.0-15.0); MCH 23.4 pg (26.0-34.0); MCHC 31.6 g/dL (28.0-37.0); PLATELET COUNT 233 thou/uL (150-400); RBC 4.86 mil/uL (4.20-5.00); RDW 19.1 % (10.5-14.5); WBC 12.4 thou/uL (4.0-11.0)
[2020-06-10 16:36] LABS: CALCIUM 9.3 mg/dL (8.5-10.1); CREATININE 0.9 mg/dL (0.6-1.0); POTASSIUM 3.9 mmol/L (3.5-5.1)
[2020-06-10 16:51] LABS: ALBUMIN 3.5 g/dL (3.4-5.0); TOTAL BILIRUBIN 0.5 mg/dL (0.2-1.0); TOTAL PROTEIN 8.1 g/dL (6.4-8.2); TROPONIN-I 0.12 ng/mL (<0.06)
[2020-06-10 17:02] LABS: ABSOLUTE NEUTROPHILS 10.3 thou/uL (1.4-8.2); ANISOCYTOSIS 1+; HYPOCHROMASIA 1+; MICROCYTES 1+; POIKILOCYTOSIS 1+
[2020-06-10 17:19] LABS: URINE BILIRUBIN NEGATIVE (Negative); URINE BLOOD TRACE (Negative); URINE CLARITY CLEAR; URINE COLOR YELLOW; URINE GLUCOSE-RANDOM* 3+ (Negative); URINE KETONES 1+ (Negative); URINE LEUKOCYTES-REFLEX NEGATIVE (Negative); URINE NITRITE-REFLEX NEGATIVE (Negative); URINE PROTEIN (DIPSTICK) 2+ (Negative); URINE UROBILINOGEN 0.2 E.U./dl (0.2-1.0)
[2020-06-10 17:49] LABS: CASTS None Seen /LPF (None Seen); CRYSTALS None Seen /LPF (None Seen); SQUAMOUS 0-3 Few /LPF (0-3); URINE RBC 0-2 Rare /HPF (0-2)
[2020-06-10 17:50] LABS: BACTERIA-REFLEX 1-9 Few /HPF (None Seen); URINE WBC-REFLEX None Seen /HPF (0-5)
--- NOTE | 2020-06-10 17:54 | NUR ---
SPOKE WITH PT.'S DAUGHTER SHE STATES PT.'S TROP RUNS HIGH TYPICALLY: 12/12: 0.55 01/01: 0.09 01/11: 0.09
[2020-06-10 20:28] LABS: % SATURATION 3 % (20-39); IRON 16 ug/dL (50-170); TIBC 466 ug/dL (250-450)
[2020-06-10 21:30] LABS: TSH 1.274 uIU/mL (0.358-3.740)
[2020-06-11 04:53] LABS: HEMATOCRIT 33.5 % (37.0-47.0); HEMOGLOBIN 10.7 gm/dL (12.0-15.0); MCH 23.5 pg (26.0-34.0); MCHC 31.9 g/dL (28.0-37.0); MCV 73.7 fL (80.0-100.0); RBC 4.55 mil/uL (4.20-5.00); RDW 20.7 % (10.5-14.5); WBC 9.4 thou/uL (4.0-11.0)
[2020-06-11 04:57] LABS: ALBUMIN 2.7 g/dL (3.4-5.0); TOTAL PROTEIN 5.8 g/dL (6.4-8.2)
[2020-06-11 05:00] LABS: CALCIUM 8.4 mg/dL (8.5-10.1); CREATININE 0.7 mg/dL (0.6-1.0); MAGNESIUM 1.6 mg/dL (1.8-2.4); POTASSIUM 3.7 mmol/L (3.5-5.1)
[2020-06-11 06:37] VITALS: BP 154/86
--- NOTE | 2020-06-11 06:51 | NUR ---
ATTEMPTED TO CALL REPORT TO CCU
[2020-06-11 07:06] VITALS: BP 146/73
[2020-06-11 07:15] VITALS: BP 145/75
--- NOTE | 2020-06-11 11:12 | NUR ---
ASSESSMENT-S/W DTR JESUSITA BY PHONE WHO WAS IN ROOM WITH MOM. PT LIVES ALONE IN HER HOME WITH 2 STEPS TO ENTER & NONE INSIDE. PT USES A CANE NEEDED AND DOES HER OWN ADLS. SHE HAS A SHOWER CHAIR BUT DOES NOT USE IT. PT HAS HER DTR, A SON AND A DTR-IN-LAW FOR SUPPORT. PT'S PCP IS FAB KENNEY. PT HAS BEEN TO AND HAD [facility] IN THE PAST AND BEEN TO [facility] IN THE PAST. DTR DOES NOT ANTICIPATE ANY DC NEEDS AT THIS POINT. FOLLOWING TO ASSIST WITH DC PLANNING.
[2020-06-11 11:30] VITALS: BP 139/83
--- NOTE | 2020-06-11 12:36 | NUR ---
I have reviewed the documentation by LAUREL YOUNG from 06/11/20 to 06/11/20 and I concur with it. DAMIEN COPELAND, PT, DPT
--- NOTE | 2020-06-11 13:50 | 2DMMODE ---
[facility] [place] [address] 2 D/M-MODE ECHOCARDIOGRAM Name: DORENE FOSTER Room #: 201-P ADM IN M.R.#: [id number] Admission: 06/10/20 Attend Phys: Eric Mcdonald MD Discharge: Date of : 33 Report #: [id number] THIS REPORT FOR: cc: Leonidas Farr MD, Steven E. MD Lammoglia, Francisco J. MD ~ APPROVED REPORT Study performed: 06/11/2020 08:18:06 EXAM: Comprehensive 2D, Doppler, and color-flow Echocardiogram Patient Location: Bedside Room #: 201 Status: on-call BSA: 1.47 BP: 145/75 mmHg Rhythm: Atrial Fibrillation Indications Chest Pain Hx: Pacemaker, Afib, MA, stent, COPD, DM. 2D Dimensions RVDd: 31.45 mm IVSd: 9.50 (7-11mm) LVOT Diam: 18.59 (18-24mm) LVDd: 41.45 mm PWd: 9.92 (7-11mm) Ascending Ao: 30.43 (22-36mm) LVDs: 27.52 (25-40mm) Aortic Root: 28.11 mm Volumes Left Atrial Volume (Systole) Single Plane 4CH: 61.76 mL Single Plane 2CH: 56.81 mL LA ESV Index: 42.00 mL/m2 Aortic Valve AoV Peak Jose.: 1.93 m/s AO Peak Gr.: 15.07 mmHg LVOT Max P.18 mmHg AO Mean Gr.: 9.32 mmHg AO V2 Mean: 1.47 m/s LVOT Max V: 0.89 m/s AO V2 VTI: 38.30 cm MAHNAZ Vmax: 1.25 cm2 [facility] [address] [place] [address] 2 D/M-MODE ECHOCARDIOGRAM Name: DORENE FOSTER Room #: 201-P [facility] IN [facility].#: [id number] Admission: 06/10/20 Attend Phys: Eric Mcdonald, Discharge: Date of : 33 Report #: [id number] Mitral Valve MV Decel. Time: 160.03 ms MV E Max Jose.: 1.72 m/s Pulmonary Valve PV Peak Jose.: 0.93 m/s PV Peak Gr.: 3.46 mmHg Tricuspid Valve TR Peak Jose.: 3.00 m/s RAP Estimate: 10.00 mmHg TR Peak Gr.: 37.00 mmHg PA Pressure: 47.00 mmHg Left Ventricle The left ventricle is normal size. There is normal LV segmental wall motion. Moderate basal septal hypertrophy is present. Left ventricular systolic function is normal. LVEF is 60-65%. This study is not technically sufficient to allow evaluation of the LV diastolic function due to atrial fibrillation. Right Ventricle The right ventricle is normal size. The right ventricular systolic function is normal. Pacemaker lead is present in the right ventricle. Atria Left atrium is severely dilated. Right atrium is moderately dilated. Aortic Valve Aortic valve leaflets are moderately thickened and calcified. No aortic regurgitation is present. There is mild valvular aortic stenosis. Calculated aortic valve area is 1.3 cm2 with maximum pressure gradient of 15 mmHg and mean pressure gradient of 9 mmHg. Mitral Valve Mitral valve leaflets are thickened. Mild mitral annular calcification. Moderate mitral regurgitation. No evidence of mitral valve stenosis. Tricuspid Valve The tricuspid valve is normal in structure. Moderate tricuspid regurgitation. Estimated PAP is 45-50mmHg. Pulmonic Valve The pulmonary valve is normal in structure. Trace pulmonic regurgitation. [facility] [address] [place] [address] 2 D/M-MODE ECHOCARDIOGRAM Name: DORENE FOSTER Room #: 201-P [facility] IN ..#: [id number] Admission: 06/10/20 Attend Phys: Eric Mcdonald, Discharge: Date of : 33 Report #: [id number] Great Vessels The aortic root is normal in size. The ascending aorta is normal in size. IVC is normal in size and collapses <50% with inspiration. Pericardium There is no pericardial effusion. <Conclusion> The left ventricle is normal size. LVEF is 60-65%. The right ventricle is normal size. Pacemaker lead is present in the right ventricle. Left atrium is severely dilated. Right atrium is moderately dilated. Aortic valve leaflets are moderately thickened and calcified. No aortic regurgitation is present. There is mild valvular aortic stenosis. Calculated aortic valve area is 1.3 cm2 with maximum pressure gradient of 15 mmHg and mean pressure gradient of 9 mmHg. Mitral valve leaflets are thickened. Mild mitral annular calcification. Moderate mitral regurgitation. The tricuspid valve is normal in structure. Moderate tricuspid regurgitation. Estimated PAP is 45-50mmHg. The pulmonary valve is normal in structure. Trace pulmonic regurgitation. There is no pericardial effusion. <ELECTRONICALLY SIGNED> By: Roly Leahy MD 06/11/20 1350 1350 135 Roly Leahy MD /INF
[2020-06-11 17:00] VITALS: BP 154/76
--- NOTE | 2020-06-11 17:27 | NUR ---
ASSUMMED PT CARE AT APPRIXIMATELY 0700. PT A&O X4. ASSESSMENT CHARTED. FALL PRECAUTIONS IN PLACE. PT DENIES HAVING CHEST PAIN. PT DENIES HAVING SOB. PT STATED SHE HAD L SHOULDER/NECK PAIN. PT RECEIVED ANALGESICS. PT STATED ANALGESCIS HELPED RELIEVE PAIN. VITAL SIGNS STABLE. BLOOD SUGARS STABLE. PT AMBULATES STEADY AD YI. EDUCATED PT AND PT'S FAMILY ABOUT POC. PT AND PT'S FAMILY STATED UNDERSTANDING. PT COMFORTABLE. PT DENIES HAVING FURTHER CONCERNS. ADMISSION COMPLETE.
[2020-06-11 19:30] VITALS: BP 129/67
[2020-06-12 04:00] VITALS: BP 126/81
[2020-06-12 05:07] LABS: HEMATOCRIT 33.2 % (37.0-47.0); HEMOGLOBIN 10.4 gm/dL (12.0-15.0); MCH 23.4 pg (26.0-34.0); MCHC 31.3 g/dL (28.0-37.0); MCV 74.9 fL (80.0-100.0); RBC 4.43 mil/uL (4.20-5.00); RDW 19.4 % (10.5-14.5); WBC 5.3 thou/uL (4.0-11.0)
[2020-06-12 05:20] LABS: CALCIUM 9.3 mg/dL (8.5-10.1); CREATININE 0.7 mg/dL (0.6-1.0); MAGNESIUM 2.1 mg/dL (1.8-2.4); POTASSIUM 3.7 mmol/L (3.5-5.1)
[2020-06-12 07:27] VITALS: BP 148/80
--- NOTE | 2020-06-12 07:51 | NUR ---
ASSUMED CARE OF THE PATIENT AT 1900; AOX4/AMBULATES STEADY TO TOILET; CONTROLLED AFIB/VPACED/PVC/AND SOMETIMES [place] ON THE MONITOR; NO C/O OF PAIN; SLEPT QUIETLY THROUGHOUT MOST OF THE NOC; PLAN IS TO CONTINUE TO MONITOR PATIENT AND POSSIBLE D/C TO HOME TODAY; WILL CONTINUE TO MONITOR
[2020-06-12] MEDS ORDERED: VERAPAMIL SR 1120 MG PO (14:18)
[2020-06-12] MEDS ORDERED: FEROSUL325 M1 PO (14:21)
[2020-06-12] MEDS ORDERED: COLCHICINE0.6 M1 PO (14:22)
[2020-06-12 14:42] VITALS: BP 148/80
[2020-06-12 15:24] VITALS: BP 148/80
[2020-06-12 15:25] VITALS: BP 148/80
--- NOTE | 2020-06-14 07:26 | EKG ---
[facility] [place] [address] ELECTROCARDIOGRAM REPORT Name: DORENE FOSTER Room #: 201-P [facility] IN M.R.#: [id number] Admission: 06/10/20 Attend Phys: Eric Mcdonald MD Discharge: 06/12/20 Date of : 33 Report #: [id number] THIS REPORT FOR: cc: Leonidas Farr MD, Steven E. MD Santiago, Patrick MD [facility] ~ THIS REPORT FOR: //name// [facility] ED Test Date: 2020-06-10 Test Time: 15:42:28 Pat Name: DORENE FOSTER Department: Room: 201 Gender: F Metal Milling Machine Operator: Arabella : 1935 Requested By: Yesenia Zamarripa Order Number: [id number] MD: Jeremi Scales Measurements Intervals [place] Rate: 126 P: 79 RI: 119 QRS: -21 QRSD: 89 T: 161 QT: 376 QTc: 545 Interpretive Statements Sinus tachycardia LVH with secondary repolarization abnormality Anterior Q waves, possibly due to LVH Prolonged QT interval Probable RV involvement, suggest recording right precordial leads Artifact in lead(s) II,aVR,aVF Compared to ECG 11/19/2019 08:22:01 Left ventricular hypertrophy now present Q waves now present Prolonged QT interval now present Poor R-wave progression no longer present Electronically Signed On 06-14-2020 7:26:39 PLATE GAUGER by Jeremi Scales [email or web address] <ELECTRONICALLY SIGNED> By: Jeremi Scales MD, [facility] 06/14/20 0726 154 1542 Jeremi Scales MD, [facility] /EPI
== END 2020-06-12 15:30 | disposition home or self-care (01) | DRG 554 ==
LOC: ER 15:25 → 2N 18:33 → EROBS 18:33 → 2N 06-11 07:06
PROVIDERS: Physician Assistant; ADMIT Internal Medicine; ATTEND Internal Medicine
DX: M11.29 Other chondrocalcinosis, multiple sites (principal); R65.10 Systemic inflammatory response syndrome (SIRS) of non-infectious origin without acute organ dysfunction; I48.92 Unspecified atrial flutter; I25.10 Atherosclerotic heart disease of native coronary artery without angina pectoris; Z20.828 Contact with and (suspected) exposure to other viral communicable diseases; I48.91 Unspecified atrial fibrillation; I49.5 Sick sinus syndrome; E11.9 Type 2 diabetes mellitus without complications; J44.9 Chronic obstructive pulmonary disease, unspecified; J45.909 Unspecified asthma, uncomplicated; E03.9 Hypothyroidism, unspecified; K21.9 Gastro-esophageal reflux disease without esophagitis; D50.9 Iron deficiency anemia, unspecified; G89.29 Other chronic pain; M54.9 Dorsalgia, unspecified; F32.9 Major depressive disorder, single episode, unspecified; Z79.01 Long term (current) use of anticoagulants; I25.2 Old myocardial infarction; Z95.5 Presence of coronary angioplasty implant and graft; Z90.710 Acquired absence of both cervix and uterus; Z90.49 Acquired absence of other specified parts of digestive tract; Z88.6 Allergy status to analgesic agent; Z88.1 Allergy status to other antibiotic agents; Z88.0 Allergy status to penicillin; Z88.2 Allergy status to sulfonamides; Z88.8 Allergy status to other drugs, medicaments and biological substances; Z82.49 Family history of ischemic heart disease and other diseases of the circulatory system; Z83.3 Family history of diabetes mellitus; Z82.3 Family history of stroke; Z81.1 Family history of alcohol abuse and dependence; Z95.0 Presence of cardiac pacemaker
CPT/HCPCS: 10081

== ENCOUNTER → 2020-06-24 | Outpatient (CLI) | payer OTHER, MEDICARE ==
[~2020-06-24] MED LIST changes: +COLCHICINE0.6 M1 PO; +FEROSUL325 M1 PO; +LIPITOR40 MG PO; +POTASSIUM CHLO20 ME2 PO; +TRADJENTA5 MG; +VERAPAMIL SR 1120 MG PO
== END ==
LOC: SJCVC 14:23
PROVIDERS: ATTEND Internal Medicine Cardiovascular Disease
DX: I48.92 Unspecified atrial flutter (principal); R94.31 Abnormal electrocardiogram [ECG] [EKG]; I44.30 Unspecified atrioventricular block; I48.91 Unspecified atrial fibrillation; Z95.0 Presence of cardiac pacemaker

== ENCOUNTER → 2020-10-12 | Outpatient (CLI) | payer OTHER, MEDICARE | LOC: SJCVCIMAG 08:55 | PROVIDERS: ATTEND Internal Medicine Cardiovascular Disease | DX: I08.8 Other rheumatic multiple valve diseases (principal); R94.31 Abnormal electrocardiogram [ECG] [EKG]; I48.21 Permanent atrial fibrillation; K21.9 Gastro-esophageal reflux disease without esophagitis; I11.9 Hypertensive heart disease without heart failure; E78.00 Pure hypercholesterolemia, unspecified; I25.2 Old myocardial infarction; Z95.0 Presence of cardiac pacemaker; Z98.890 Other specified postprocedural states; Z88.0 Allergy status to penicillin; Z88.8 Allergy status to other drugs, medicaments and biological substances; Z79.899 Other long term (current) drug therapy ==

== ENCOUNTER 2021-09-09 19:23 | Inpatient (IN) | payer OTHER, MEDICARE ==
[~2021-09-09] VITALS: Ht 165.1 cm; Wt 44.3 kg
[2021-09-09 19:43] VITALS: BP 164/91
[2021-09-09 20:05] LABS: ABSOLUTE NEUTROPHILS 4.4 thou/uL (1.4-8.2); BASOPHILS 1.3 % (0.0-2.0); EOSINOPHILS 6.3 % (0.0-3.0); HEMOGLOBIN 12.8 gm/dL (12.0-15.0); LYMPHOCYTES 22.1 % (24.0-44.0); MCH 30.4 pg (26.0-34.0); MCHC 33.6 g/dL (28.0-37.0); MCV 90.6 fL (80.0-100.0); MONOCYTES 9.8 % (1.0-8.0); PLATELET COUNT 142 thou/uL (150-400); POLYS 60.5 % (36.0-66.0); RDW 14.4 % (10.5-14.5); WBC 7.3 thou/uL (4.0-11.0)
[2021-09-09 20:13] LABS: CALCIUM 9.1 mg/dL (8.5-10.1); CREATININE 0.8 mg/dL (0.6-1.0)
[2021-09-09 20:23] LABS: ALBUMIN 3.5 g/dL (3.4-5.0); TOTAL BILIRUBIN 0.4 mg/dL (0.2-1.0); TOTAL PROTEIN 6.7 g/dL (6.4-8.2)
[2021-09-09 20:25] LABS: APTT 28.7 Seconds (24.5-32.8); INR 1.1; PROTIME 11.9 Seconds (10.5-12.1)
[2021-09-09 21:23] LABS: URINE BILIRUBIN NEGATIVE (Negative); URINE BLOOD NEGATIVE (Negative); URINE CLARITY CLEAR; URINE COLOR YELLOW; URINE GLUCOSE-RANDOM* 2+ (Negative); URINE KETONES NEGATIVE (Negative); URINE LEUKOCYTES-REFLEX NEGATIVE (Negative); URINE NITRITE-REFLEX NEGATIVE (Negative); URINE PROTEIN (DIPSTICK) TRACE (Negative); URINE UROBILINOGEN 0.2 E.U./dl (0.2-1.0)
[2021-09-09 23:30] VITALS: BP 141/83
[2021-09-10] MEDS ORDERED: PROTONIX40 M2 PO (00:30)
[2021-09-10] MEDS ORDERED: REPAGLINIDE1 MG PO (00:31)
--- NOTE | 2021-09-10 03:48 | NUR ---
NURSING NOTE: ADMISSION: PT ARRIVED TO UNIT AT 2330 LAST EVENING, PER LADIES' HAT TRIMMER PER CART. ALERT AND ORIENTED X4; MOVES ALL EXTREMITIES AND FOLLOWS COMMANDDS. DENIES PAIN. BENEDRYL GIVEN X1 TIME FOR SLEEP. CURRENTLY RESTING WITH EYES CLOSED, RESP EVEN AND NON LABORED. ALL VS AND ASSESSMENTS CHARTED. WILL CONTINUE TO MONITOR,
[2021-09-10 04:45] VITALS: BP 128/83
[2021-09-10 06:38] LABS: CALCIUM 8.8 mg/dL (8.5-10.1); CREATININE 0.8 mg/dL (0.6-1.0); POTASSIUM 4.1 mmol/L (3.5-5.1)
[2021-09-10 08:00] VITALS: BP 141/76
--- NOTE | 2021-09-10 09:46 | EKG ---
[place] [address] [facility] [place] [address] ELECTROCARDIOGRAM REPORT Name: DORENE FOSTER Room #: 215-P ADM IN M.R.#: [id number] Admission: 09/09/21 Attend Phys: Villa Monson MD Discharge: Date of : 31 Report #: [id number] [facility] ED Test Date: 2021-09-09 Test Time: 19:52:17 Pat Name: DORENE FOSTER Department: Room: 215 Gender: F Lining Finisher: Kirit Og : 1935 Requested By: Kareem Posada Order Number: [id number] MD: Matthew Dutton Measurements Intervals [place] Rate: 115 P: MS: QRS: -19 QRSD: 79 T: 164 QT: 309 QTc: 428 Interpretive Statements Atrial flutter with predominant 2:1 AV block Borderline left axis deviation Anterior infarct, old Nonspecific ST segment abnormalities Compared to ECG 06/10/2020 15:42:28 Possible ischemia now present ST (T wave) deviation now present Left ventricular hypertrophy no longer present Q waves no longer present Prolonged QT interval no longer present Electronically Signed On 09-10-2021 9:46:05 MANGA ARTIST by Matthew Dutton [email or web address] <ELECTRONICALLY SIGNED> By: Matthew Dutton MD 09/10/2146 51 51 Matthew Dutton MD /EPI
[2021-09-10 11:29] VITALS: BP 135/58
[2021-09-10 15:21] VITALS: BP 141/84
--- NOTE | 2021-09-10 17:49 | 2DMMODE ---
[facility] [place] [address] 2 D/M-MODE ECHOCARDIOGRAM Name: DORENE FOSTER Room #: 215-P ADM IN M.R.#: [id number] Admission: 09/09/21 Attend Phys: Villa Monson MD Discharge: Date of : 31 Report #: [id number] THIS REPORT FOR: cc: Leonidas Farr MD, Steven E. MD Park, Jin S. MD ~ APPROVED REPORT Study performed: 09/10/2021 10:27:09 EXAM: Comprehensive 2D, Doppler, and color-flow Echocardiogram Patient Location: In-Patient Room #: 215 Status: routine BSA: 1.67 HR: 93 bpm Rhythm: Atrial Fibrillation Other Information Study Quality: Adequate Risk Factors: Cardiac Risk Factors: HTN Indications Atrial Fibrillation 2D Dimensions IVSd: 10.07 (7-11mm) LVOT Diam: 20.55 (18-24mm) LVDd: 34.13 mm PWd: 12.11 (7-11mm) LVDs: 19.06 (25-40mm) Left Atrium: 49.56 (27-40mm) Aortic Root: 27.06 mm Volumes Left Atrial Volume (Systole) Single Plane 4CH: 75.51 mL Single Plane 2CH: 79.21 mL Aortic Valve AoV Peak Jose.: 1.80 m/s AO Peak Gr.: 12.94 mmHg LVOT Max P.61 mmHg AO Mean Gr.: 7.25 mmHg LVOT Mean P.39 mmHg [facility] [address] [place] [address] 2 D/M-MODE ECHOCARDIOGRAM Name: DORENE FOSTER Antonio Room #: 215-P [facility] IN [facility].#: [id number] Admission: 09/09/21 Attend Phys: Villa Monson MD Discharge: Date of : 31 Report #: [id number] AO V2 Mean: 1.28 m/s LVOT Max V: 0.81 m/s AO V2 VTI: 36.63 cm LVOT Mean V: 0.54 m/s MAHNAZ (VTI): 1.43 cm2 LVOT V1 VTI: 15.81 cm MAHNAZ Vmax: 1.49 cm2 SV (LVOT): 52.43 mL Mitral Valve MV E Max Jose.: 1.41 m/s Tricuspid Valve TR Peak Jose.: 3.07 m/s TR Peak Gr.: 37.70 mmHg Left Ventricle The left ventricle is normal size. Borderline concentric left ventricular hypertrophy. The left ventricular systolic function is normal. The left ventricular ejection fraction is within the normal range. LVEF is 60%. Right Ventricle The right ventricle is normal size. The right ventricular systolic function is normal. Atria Left atrium is severely dilated. Right atrium is severely dilated. Aortic Valve Aortic valve is calcified. Trace to mild aortic regurgitation. Mild aortic stenosis. Mitral Valve Mild mitral annular calcification. Moderate mitral regurgitation. No evidence of mitral valve stenosis. Tricuspid Valve The tricuspid valve is normal in structure. Mild to moderate tricuspid regurgitation. Estimated PAP 44 mmHg. Pulmonic Valve The pulmonary valve is normal in structure. Trace pulmonic regurgitation. Great Vessels The aortic root is normal in size. IVC is normal in size and collapses >50% with inspiration. [facility] [place] [address] [place] [address] 2 D/M-MODE ECHOCARDIOGRAM Name: DORENE FOSTER Room #: 215-P [facility] IN [facility].#: [id number] Admission: 09/09/21 Attend Phys: Villa Monson MD Discharge: Date of : 31 Report #: [id number] Pericardium There is no pericardial effusion. Critical Notification Critical Value: No <Conclusion> The left ventricle is normal size. The left ventricular systolic function is normal. The right ventricle is normal size. Left atrium is severely dilated. Mild aortic stenosis. Moderate mitral regurgitation. Mild to moderate tricuspid regurgitation. Estimated PAP 44 mmHg. <ELECTRONICALLY SIGNED> By: Matthew Dutton MD 09/10/211748 48 48 Matthew Dutton MD /INF
[2021-09-10 20:15] VITALS: BP 123/68
--- NOTE | 2021-09-11 04:02 | NUR ---
Assumed pt care at 1900. Pt is alert and oriented. No sign of distress noted in pt.Pt is ambulatory. Assessment completed and documented. Vital signs stable. Scheduled meds administered to pt. No acute event noted. Continue to monitor. No further needs at this time.
[2021-09-11 04:45] VITALS: BP 147/62
[2021-09-11 07:58] VITALS: BP 123/65
--- NOTE | 2021-09-11 08:07 | HC ---
[facility] [place] [address] CONSULTATION Name: DORENE FOSTER Room #: 215-P [facility] IN M.R.#: [id number] Admission: 09/09/21 Attend Phys: Villa Monson MD Discharge: Date of : 31 Report #: [id number] THIS REPORT FOR: cc: Leonidas Farr MD, Steven E. MD Park, Jin S. MD ~ DATE OF SERVICE: 09/10/2021 CARDIOLOGY CONSULTATION INDICATION: Chest pain. HISTORY OF PRESENT ILLNESS: This is a pleasant 86-year-old female with a history of HI, PCI, AFib, permanent pacemaker, diabetes mellitus, COPD, esophageal stricture, presenting with an episode of chest pain and head fullness. Yesterday, she had gone shopping and came back, noted some difficulty lifting heavy bags. She proceeded to take a nap in the afternoon. After about an hour, she woke up with a dull ache in the substernal area and felt ringing in both ears. She also felt lightheaded and mildly short of breath. There is no history of fever, chills or cough. Initial troponin was negative, but second troponin is elevated at 186. PAST MEDICAL HISTORY: HI with stent placement to the obtuse marginal and RCA in 2018, has a moderate lesion in the mid LAD. Chronic AFib, managed with rate control. History of permanent pacemaker, COPD, diabetes mellitus, esophageal stricture status post dilatation, back pain and gout. Echo from 2019 reveals normal EF, mild , mild MR. ALLERGIES: Please see MAR for full listing, ALLERGIC TO BETA BLOCKERS, causing dyspnea and rash. Intolerant to amiodarone. MEDICATIONS AT HOME: Include Tradjenta, verapamil, atorvastatin, Eliquis 2.5 twice a day, levothyroxine. SOCIAL HISTORY: The patient lives alone, is able to drive. Denies any tobacco use. FAMILY HISTORY: Negative for premature CAD. REVIEW OF SYSTEMS: A full 10-point review of systems performed. Only the pertinent positives and negatives are described in the HPI. PHYSICAL EXAMINATION: VITAL SIGNS: Blood pressure is 140/70, heart rate is 110 beats per minute. GENERAL APPEARANCE: This is an elderly appearing female in no acute distress. HEENT: Normocephalic, atraumatic. Oral mucosa moist. [facility] [address] [place] [address] CONSULTATION Name: DORENE FOSTER Room #: 215-P [facility] IN .R.#: [id number] Admission: 09/09/21 Attend Phys: Villa Monson MD Discharge: Date of : 31 Report #: [id number] NECK: Supple. LUNGS: Clear to auscultation. CARDIOVASCULAR: Irregularly irregular. S1, S2 positive. ABDOMEN: Soft, nontender. EXTREMITIES: No cyanosis, no edema. ECG reveals atrial fibrillation, nonspecific ST segment abnormality. LABORATORY DATA: Sodium is 140, creatinine 0.8, peak troponin is 186, trending downward. White count 7.3, hemoglobin is 12.8. ASSESSMENT AND PLAN: 1. Non-ST elevation myocardial infarction, the patient reports having dull substernal chest discomfort with head fullness and dizziness. It is not the same quality of symptoms when she presented with an HI. However, there has been change in serial troponin levels. Hold anticoagulation therapy for now, may need to consider invasive approach versus noninvasive stress testing. We will discuss with Dr. Farias. 2. Atrial fibrillation, continue on verapamil. Hold Eliquis secondary to above. 3. Diabetes mellitus as per PCP. 4. Hypertension, continue medications. 5. Hypercholesterolemia, continue with statin therapy. <ELECTRONICALLY SIGNED> By: Matthew Dutton MD 09/11/21 0807 [id number] [id number] Matthew Dutton MD /nt
[2021-09-11 11:49] VITALS: BP 146/78
[2021-09-11 15:30] VITALS: BP 121/74
[2021-09-11 20:00] VITALS: BP 176/109
[2021-09-12 00:27] VITALS: BP 183/97
[2021-09-12 04:00] VITALS: BP 127/42
--- NOTE | 2021-09-12 08:40 | NUR ---
HELD ALL MORNING ORAL MEDICATIONS. PT STATES SHE STILL HAS A PILL "STUCK" IN HER THROAT FROM LAST NIGHT. PT HAS HISTORY OF ESOPHAGEAL STRICTURES WITH LAST DILATION PROCEDURE APPROXIMATELY A YEAR AGO. WILL NOTIFY PROVIDER AND READDRESS MEDICATION ADMINISTRATION AT THAT TIME.
[2021-09-12 08:57] VITALS: BP 148/54
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
[2021-09-12 16:00] VITALS: BP 150/78
--- NOTE | 2021-09-12 17:04 | 2DMMODE ---
[address] [address] 2 D/M-MODE ECHOCARDIOGRAM Name: DORENE FOSTER Room #: 215-P ADM IN M.R.#: [id number] Admission: 09/09/21 Attend Phys: Villa Monson MD Discharge: Date of : 33 Report #: [id number] THIS REPORT FOR: cc: Leonidas Farr MD, Steven E. MD Lundgren, Craig H. MD [facility] ~ APPROVED REPORT Study performed: 09/12/2021 14:59:15 EXAM: Comprehensive 2D, Doppler, and color-flow Echocardiogram Patient Location: Clinic Room #: [facility] Status: routine BSA: 1.45 HR: 96 bpm BP: 148/54 mmHg Rhythm: NSR Other Information Study Quality: Good Indications COPD Diabetes Atrial Fibrillation CAD Hypertension/HDD 2D Dimensions LVOT Diam: 19.65 (18-24mm) Volumes Left Atrial Volume (Systole) Single Plane 4CH: 103.34 mL Single Plane 2CH: 55.73 mL LA ESV Index: 56.00 mL/m2 Aortic Valve AoV Peak Jose.: 1.87 m/s AO Peak Gr.: 13.98 mmHg LVOT Max P.27 mmHg LVOT Max V: 0.75 m/s MAHNAZ Vmax: 1.22 cm2 Pulmonary Valve [address] [place] [address] 2 D/M-MODE ECHOCARDIOGRAM Name: DORENE FOSTER Room #: 215-P ADM IN M.R.#: [id number] Admission: 09/09/21 Attend Phys: Villa Monson MD Discharge: Date of : 31 Report #: [id number] PV Peak Jose.: 0.88 m/s PV Peak Gr.: 3.10 mmHg Tricuspid Valve TR Peak Jose.: 2.48 m/s TR Peak Gr.: 24.77 mmHg PA Pressure: 25.00 mmHg Left Ventricle The left ventricle is normal size. There is normal LV segmental wall motion. There is normal left ventricular wall thickness. The left ventricular systolic function is normal. The left ventricular ejection fraction is within the normal range. LVEF is 55%. This study is not technically sufficient to allow evaluation of the LV diastolic function. Right Ventricle The right ventricle is normal size. The right ventricular systolic function is normal. Atria Left atrium is dilated. Right atrium is dilated. Aortic Valve The aortic valve is moderately calcified, trileaflet No aortic regurgitation is present. Mild aortic valvular stenosis. Mitral Valve Moderate mitral annular calcification Mild to moderate mitral regurgitation. No evidence of mitral valve stenosis. Tricuspid Valve The tricuspid valve is normal in structure. There is mild tricuspid regurgitation. Estimated pulmonary artery pressure of 35 mmHg Pulmonic Valve The pulmonary valve is normal in structure. There is no pulmonic valvular regurgitation. Great Vessels The aortic root is normal in size. The inferior vena cava is not well visualized. Pericardium There is no pericardial effusion. <Conclusion> [facility] [address] [place] [address] 2 D/M-MODE ECHOCARDIOGRAM Name: DORENE FOSTER Room #: 215-P ADM IN M.R.#: [id number] Admission: 09/09/21 Attend Phys: Villa Monson MD Discharge: Date of : 31 Report #: [id number] The left ventricular systolic function is normal. There is normal LV segmental wall motion. LVEF is 55%. Both atria are severely dilated. The aortic valve is moderately calcified, trileaflet. No aortic regurgitation. Mild stenosis. Moderate mitral annular calcification. Mild to moderate mitral regurgitation. There is mild tricuspid regurgitation. Estimated pulmonary artery pressure of 35 mmHg There is no pericardial effusion. <ELECTRONICALLY SIGNED> By: Shawn Farias MD, FACC 09/12/211703 03 03 Shawn Farias MD, FACC /INF
[2021-09-12 19:24] VITALS: BP 147/94
[2021-09-12 20:18] VITALS: BP 147/94
--- NOTE | 2021-09-12 21:52 | NUR ---
PT ALERT X4. [place]. C/O INSOMNIA. VESSEL SLAG WORKER NOTIFIED, BENADRYL 12.5 MG GIVEN IV.
== END 2021-09-13 | disposition home or self-care (01) | DRG 391 ==
LOC: ER 19:23 → EROBS 22:53 → 2N 22:53
PROVIDERS: Emergency Medicine; ADMIT Hospitalist; ATTEND Hospitalist
PROC: 0DJ08ZZ Inspection of Upper Intestinal Tract, Via Natural or Artificial Opening Endoscopic (ICD-10-PCS; principal; 2021-09-13)
DX: K22.2 Esophageal obstruction (principal); I21.4 Non-ST elevation (NSTEMI) myocardial infarction; I48.92 Unspecified atrial flutter; E46 Unspecified protein-calorie malnutrition; Z68.1 Body mass index [BMI] 19.9 or less, adult; D68.59 Other primary thrombophilia; R13.19 Other dysphagia; K20.80 Other esophagitis without bleeding; Z20.822 Contact with and (suspected) exposure to COVID-19; Z79.01 Long term (current) use of anticoagulants; Z79.899 Other long term (current) drug therapy; Z88.0 Allergy status to penicillin; Z88.8 Allergy status to other drugs, medicaments and biological substances; Z88.2 Allergy status to sulfonamides; F41.9 Anxiety disorder, unspecified; I25.10 Atherosclerotic heart disease of native coronary artery without angina pectoris; I48.91 Unspecified atrial fibrillation; E78.00 Pure hypercholesterolemia, unspecified; Z90.49 Acquired absence of other specified parts of digestive tract; E11.9 Type 2 diabetes mellitus without complications; J44.9 Chronic obstructive pulmonary disease, unspecified; Z66 Do not resuscitate
CPT/HCPCS: 10081